=== PATIENT | female | born 1940 | race Caucasian/White ===

== ENCOUNTER → 2023-05-17 06:46 | Day surgery (SDC) | payer MEDICARE, SELFPAY | LOC: CATH 06:46 | PROVIDERS: ATTENDING PHYSICIAN Internal Medicine Cardiovascular Disease; FAMILY PHYSICIAN Internal Medicine; OTHER PHYSICIAN Nuclear Medicine Nuclear Cardiology | DX: I48.0 Paroxysmal atrial fibrillation (principal); Z53.09 Procedure and treatment not carried out because of other contraindication; R94.31 Abnormal electrocardiogram [ECG] [EKG]; I25.10 Atherosclerotic heart disease of native coronary artery without angina pectoris | CPT/HCPCS: 93005 ==

== ENCOUNTER → 2023-06-15 13:01 | Outpatient (REF) | payer MEDICARE, SELFPAY | LOC: RAD 13:01 | PROVIDERS: ATTENDING PHYSICIAN Surgery Vascular Surgery; FAMILY PHYSICIAN Internal Medicine | DX: I77.9 Disorder of arteries and arterioles, unspecified (principal); I73.9 Peripheral vascular disease, unspecified | CPT/HCPCS: 93880; 93922; 93925 ==

== ENCOUNTER → 2023-07-29 12:11 | Outpatient (REF) | payer MEDICARE, SELFPAY | LOC: CLAB 12:11 | PROVIDERS: ATTENDING PHYSICIAN Obstetrics & Gynecology | DX: N39.0 Urinary tract infection, site not specified (principal); L90.0 Lichen sclerosus et atrophicus | CPT/HCPCS: 87086; 87147; 87186 ==

== ENCOUNTER → 2023-09-09 10:21 | Outpatient (REF) | payer MEDICARE, SELFPAY | LOC: HWRAD 10:21 | PROVIDERS: ATTENDING PHYSICIAN Anesthesiology; FAMILY PHYSICIAN Internal Medicine | DX: M54.16 Radiculopathy, lumbar region (principal) | CPT/HCPCS: 72131 ==

== ENCOUNTER → 2023-09-20 15:46 | Outpatient (REF) | payer MEDICARE, SELFPAY | LOC: HWRAD 15:46 | PROVIDERS: ATTENDING PHYSICIAN Anesthesiology; FAMILY PHYSICIAN Internal Medicine | DX: M54.14 Radiculopathy, thoracic region (principal); M54.6 Pain in thoracic spine | CPT/HCPCS: 72128 ==

== ENCOUNTER → 2023-11-08 15:30 | Outpatient (REF) | payer MEDICARE, SELFPAY | LOC: PAVMRI 15:30 | PROVIDERS: ATTENDING PHYSICIAN Neurological Surgery; FAMILY PHYSICIAN Internal Medicine; OTHER PHYSICIAN Surgery Vascular Surgery | DX: S22.060A Wedge compression fracture of T7-T8 vertebra, initial encounter for closed fracture (principal) | CPT/HCPCS: 72146 ==

== ENCOUNTER → 2023-11-26 12:56 | Outpatient (REF) | payer MEDICARE, SELFPAY | LOC: RCS 12:56 | PROVIDERS: ATTENDING PHYSICIAN Nuclear Medicine Nuclear Cardiology; FAMILY PHYSICIAN Internal Medicine | DX: R06.09 Other forms of dyspnea (principal); I48.0 Paroxysmal atrial fibrillation | CPT/HCPCS: 93306 ==

== ENCOUNTER 2023-12-29 09:37 | Day surgery (SDC) | payer MEDICARE, SELFPAY ==
[2023-12-29] VITALS (17 sets, daily range): BP systolic 97–201; BP diastolic 61–126; BMI 22.0
[2023-12-29] MEDS: NSS 500 IV (10:35)
[2023-12-29 10:45] LABS: Hematocrit 41.1 % (37.0-47.0); Hemoglobin 13.9 g/dL (12.0-16.0); Mean Corp Hgb Conc. 33.8 g/dL (33.0-37.0); Mean Corpuscular Hgb 34.8 pg (27.0-31.0); Mean Corpuscular Volume 102.8 fL (81.0-99.0); Mean Platelet Volume 9.7 fL (7.4-10.4); Platelet Count 274 10^3/uL (130-400); Red Cell Dist. Width 12.4 % (11.5-14.5); White Blood Cell Count 12.2 10^3/uL (4.8-10.8)
[2023-12-29] MEDS: VANCOCIN 200 IV (11:02)
[2023-12-29 11:07] LABS: ALT (SGPT) 25 U/L (0-35); AST (SGOT) 41 U/L (14-36); Albumin 4.8 g/dl (3.5-5.0); Alkaline Phosphatase 77 U/L (38-126); Blood Urea Nitrogen 26 mg/dl (7-17); Calcium 9.9 mg/dl (8.4-10.2); Carbon Dioxide 21 mmol/L (22-30); Chloride 105 mmol/L (98-107); Estimated Creatinine Clearance 45 ml/min; Glucose 113 mg/dl (70-99); Potassium 4.8 mmol/L (3.5-5.1); Sodium 143 mmol/L (135-145); Total Bilirubin 0.8 mg/dl (0.2-1.3); Total Protein 8.3 g/dl (6.3-8.2); eGFR > 60.00
[2023-12-29] MEDS: AZACTAM 2000 MG IV (11:45)
--- NOTE | 2023-12-29 13:46 | ITS.CL.PACE ---
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
Pacemaker Implant
Procedure Report:
PACEMAKER IMPLANT REPORT
Primary Care Provider: Dr. Juany Thorne
Primary liquefier: Dr. Kalia Hansen
Date of Procedure: December 29, 2023
Procedure:
Implantation of dual-chamber permanent pacemaker utilizing the left bundle branch for conduction system pacing
Indication/Diagnosis:
Non-reversible symptomatic bradycardia due to sinus node dysfunction
After informed consent was obtained, 'time out' was called and confirmed, the patient was prepped and draped in a sterile fashion. Lidocaine with epi was used for local anesthesia. Central venous access was obtained via subclavian venipuncture. An
incision was made along the left chest and a pre-pectoral pocket was formed. Using a Seldinger technique and peel-away sheaths, the pacing leads were placed under fluoroscopic guidance.
Fluoroscopy was used to determine likely anatomic site for left bundle branch pacing. The Dragon Lawtronic C315 sheath was used to deliver the Medtronic 3830 Selectsecure pacing lead with the helix exposed just exposed from the sheath tip during continuous
monitoring when pacemapping the septum during gentle clockwise rotation to obtain a paced QRS morphology of a W pattern in lead V1. Once the suspected optimal site was identified, lead deployment was performed with several rapid rotations as paced
QRS morphology was intermittently monitored until a paced QRS complex in lead V1 demonstrated development of an R wave (QR).
Stable VEgm injury current is present throughout final lead position including at end of case, suggesting there was no perforation through the septum into the LV cavity.
Final unipolar pacing impedance is 1000 Ohms
Unipolar pacing threshold is stable at 1.5 V @ 0.4 ms.
Final conduction system paced QRS complex duration is 105 ms
LVAT is 95 ms and peak V5 -> peak V1 timing is 38 ms
Right atrial lead was placed at the RAA.
Once testing (see below) showed adequate and stable function, the leads were secured using the suture sleeves. The pocket was liberally irrigated with antibiotic solution. The leads were connected to the generator header and the leads and
generator were placed within the pocket. Fluoroscopy confirmed stable lead position. The pocket was closed in the typical fashion.
Fluoroscopy was used to guide lead placement.
IMPLANTS:
Medtronic [id number], Left Pectoral
RA: Medtronic 5076-45, RAA
RV: Medtronic 3830, Interventricular septum at LBB
DEVICE TESTING:
Sensing: RA 1.5 mV, RV 6 mV
Capture: RA 1.5 V@0.4ms, RV 1.5 V@0.4ms
Ohms: RA 600 , RV 900
FINAL PROGRAMMING
Shun Pacing: AAIR+ 60-130 ppm (MVP mode)
COMPLICATIONS:
None
CONCLUSIONS:
1: Successful implant of dual chamber permanent pacemaker utilizing Left Bundle Branch conduction system capture for pacing.
RECOMMENDATIONS:
Post-op care (tele, CXR, IV abx)
Reinitiate Toprol-XL 25 mg daily
Consideration for reinitiation of Eliquis tomorrow evening
In-Office wound check in 5-7 days
Copy to:
Dr. Juany Thorne
Dr. Kalia Hansen
[2023-12-29] MEDS: TYLENOL 650 MG PO ×2 (15:18→19:31)
--- NOTE | 2023-12-29 15:42 | CM ---
Chart reviewed. Patient is independent of ADLS, lives with her in a 3 STH, 0 ENMANUEL, ambulates with a rollator and a SPC. Plan is for the patient to return home. CM to follow
[2023-12-29] MEDS: PEPCID 20 MG PO (19:31)
[2023-12-29] MEDS: MILK OF MAGNESIA 30 ML PO (19:37)
[2023-12-29] MEDS: TOPROL XL 25 MG PO (20:17)
[2023-12-29] MEDS: CRESTOR 10 MG PO (22:13)
[2023-12-29] MEDS: PEPCID PO (22:13)
--- NOTE | 2023-12-29 23:12 | PTCARENOTE ---
Pt rec'd at change of shift oob in recliner chair with son at bedside. Medicated with Tylenol for c/o ache at pacer site and down left arm. Pacer site with pressure drsg intact and immobilizer. no active bleeding or hematoma present. A paced on
telemetry.
[2023-12-30] MEDS: TYLENOL 650 MG PO ×3 (02:11→17:08)
[2023-12-30 02:29] VITALS: BP 135/67
--- NOTE | 2023-12-30 02:44 | PTCARENOTE ---
Pt assisted oob to void in bathroom. Back to bed at present. medicated with Tylenol for c/o pain at pacer site. pacer site remains intact with no active bleeding or hematoma noted.
[2023-12-30 03:13] LABS: Hemoglobin 13.5 g/dL (12.0-16.0); Mean Corp Hgb Conc. 34.6 g/dL (33.0-37.0); Mean Corpuscular Hgb 35.4 pg (27.0-31.0); Mean Corpuscular Volume 102.4 fL (81.0-99.0); Mean Platelet Volume 9.8 fL (7.4-10.4); Platelet Count 222 10^3/uL (130-400); Red Blood Cell Count 3.81 10^6/uL (4.20-5.40); Red Cell Dist. Width 12.5 % (11.5-14.5); White Blood Cell Count 9.6 10^3/uL (4.8-10.8)
[2023-12-30 03:26] LABS: Blood Urea Nitrogen 19 mg/dl (7-17); Calcium 9.4 mg/dl (8.4-10.2); Carbon Dioxide 23 mmol/L (22-30); Chloride 104 mmol/L (98-107); Estimated Creatinine Clearance 52 ml/min; Glucose 96 mg/dl (70-99); Magnesium 2.5 mg/dl (1.6-2.3); Sodium 142 mmol/L (135-145); eGFR > 60.00
[2023-12-30] MEDS: SYNTHROID 112 MCG PO (04:22)
[2023-12-30] MEDS: LASIX 40 MG PO (04:23)
--- NOTE | 2023-12-30 05:21 | PTCARENOTE ---
At 0422 pt called nursing to room concerned that she did not take her Lasix yesterday ,requested todays dose be given at that time. Pt in no distress, lungs clear.
[2023-12-30 07:39] VITALS: BP 149/72
[2023-12-30] MEDS: KCL 20 MEQ PO (08:27)
[2023-12-30] MEDS: PLAVIX 75 MG PO (08:27)
[2023-12-30] MEDS: METAMUCIL, KONSYL 1 PACKET PO (08:27)
[2023-12-30] MEDS: TOPROL XL 25 MG PO (08:28)
--- NOTE | 2023-12-30 11:19 | CM ---
Chart reviewed. Patient is independent of ADLS, lives with her in a 3 STH, 0 NEMANUEL, ambulates with a rollator and spc. Patient is interested in VN. Referral sent to [facility]. Plan DC home with [facility] KEVIN
--- NOTE | 2023-12-30 11:42 | W.PN.CARDCBS ---
Addendum entered and electronically signed by Rj Daly MD 12/30/23 12:17:
patient seen and examined
s/p ppm
atrial pacing on tele
cxr without ptx
exam:
site cdi
Impression:
Symptomatic bradycardia
post DC PPM 12/29/23
PAF prior 2018
Tachy-trupti syndrome
CAD PCI LCx
CVA/TIA
PAD
Chronic HFpEF
PMR
HTN
HLD
Hypothyroidism
Severe MG 31mg by Echo 11/26/23
Plan:
post device site stable with scant drainage
CXR no PTX
tele Apaced
Resume OAC Eliquis tonight
New start to metoprolol xl 25mg daily
continue Plavix and statin for CAD
Activity restrictions reviewed
inc check apt 1 week
stable for d/c home today
Original Note:
Today's Communication / Plan
-
post DC PPM, stable for d/c home
Impression / Plan
-
PCP: Juany Thorne MD
CDY: Kalia Hansen DO
Impression:
Symptomatic bradycardia
post DC PPM 12/29/23
PAF prior 2018
Tachy-trupti syndrome
CAD PCI LCx
CVA/TIA
PAD
Chronic HFpEF
PMR
HTN
HLD
Hypothyroidism
Severe MG 31mg by Echo 11/26/23
Plan:
post device site stable with scant drainage
CXR no PTX
tele Apaced
Resume OAC Eliquis tonight
New start to metoprolol xl 25mg daily
continue Plavix and statin for CAD
Activity restrictions reviewed
inc check apt 1 week
stable for d/c home today
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
Subjective
Date of Service: December 30, 2023
mild inc pain relief with tylenol, no sob
Objective
Labs:
12/30/23 02:28
12/30/23 02:28
Labs
Hgb 13.5 g/dL (12.0-16.0) 12/30/23 02:
Hct 39.0 % (37.0-47.0) 12/30/23 02:
Plt Count 222 10^3/uL (130-400) 12/30/23 02:28
Sodium 142 mmol/L (135-145) 12/30/23:
Potassium 4.0 mmol/L (3.5-5.1) 12/30/23 02:28
BUN 19 mg/dl (7-17) H 12/30/23:
Creatinine 0.7 mg/dL (0.6-1.0) 12/30/23 02:28
Glucose 96 mg/dl (70-99) 12/30/23 02:28
Vital Signs and I&O:
Vital Signs
Temp Pulse Resp BP Pulse Ox
98.5 F 60 20 149/72 98
12/30/23 07:37 12/30/23 08:28 12/30/23 07:37 12/30/23 08:28 12/30/23 07:37
Vital Signs
Temp Pulse Resp BP Pulse Ox
98.5 F 60 20 149/72 98
12/30/23 07:37 12/30/23 08:28 12/30/23 07:37 12/30/23 08:28 12/30/23 07:37
Intake & Output
12/28/23 12/29/23 12/30/23 12/31/23
06:59 06:59 06:59 06:59
Intake Total 1240 / 1240
Output Total 400 / 400
Balance 840 / 840
Physical Exam
Physical Exam
NAD< AOX3
S1, S2, RRR, III/ ROSALINDA
CTAB, non labored no wheeze
SNTND bsx4
L CW dressing small marked areas of drainage, no HT, pressure dressing removed.
[2023-12-30 12:13] VITALS: BP 147/59
[2023-12-30] MEDS: ProAIR HFA INHALER 2 PUFF INH (13:13)
--- NOTE | 2023-12-30 13:14 | PTCARENOTE ---
Pt AOx3, complains of pain, given PRN medication as ordered. Pacemaker site CDI, immobilizer off. Pt independent in room. Call rose within reach.
--- NOTE | 2023-12-30 15:26 | W.DS.TRANS ---
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
-
Discharge Instructions:
Sleep Apnea Risk Low
Discharge Diagnosis/Procedures Pacemaker implant
Diet Low Cholesterol
Driving Restrictions No driving for 1 week
Bathing Restrictions OK to Shower
Instructions:
Stand-Alone Forms: DC Inst - Implanted Device
Changes to Home Medications: Yes
Discharge Medications:
DC Medications w/original date entered in [facility]
famotidine 20 mg tablet 20 mg PO BID Gastrointestinal issue 06/07/18
rosuvastatin 10 mg tablet 10 mg PO HS High cholesterol 06/07/18
albuterol sulfate 90 mcg/actuation aerosol inhaler 2 puff inhalation R Q6 PRN sob/wheezing 12/25/21
clopidogrel 75 mg tablet 75 mg PO DAILY Blood clot prevention/tx 12/25/21
levothyroxine 112 mcg tablet (Synthroid) 112 mcg PO DAILY AT 0700 Thyroid 12/25/21
furosemide 40 mg tablet 40 mg PO DAILY #30 tabs 12/29/21
apixaban 5 mg tablet 5 mg PO BID Blood clot prevention/tx 01/21/22
potassium chloride 20 mEq tablet,extended release(part/cryst) (Klor-Con M) 20 meq PO DAILY Electrolyte Repletion 01/21/22
L.acid,rhamn-Bif anim-B.subt 15 billion cell-bacterio 15 mg capsule,DR Braun) 1 cap PO DAILY 12/29/23
acetaminophen 650 mg tablet,extended release 650 mg PO Q8H PRN moderate pain 12/29/23
estradiol 0.01% (0.1 mg/gram) vaginal cream 1 appful vaginal ONCE PRN yeast infection 12/29/23
magnesium chloride 70 mg (magnesium chloride) tablet,delayed release 70 mg PO HS 12/29/23
qxlullgffluo-zdrdbwwo-omzsgv tablet (Multivitamin 50 Plus tablet) 1 tab PO HS 12/29/23
metoprolol succinate 25 mg tablet,extended release 24 hr 25 mg PO DAILY #30 tabs 12/30/23
Home Medication Changes
new to metoprolol
Pending Results: No
[2023-12-30 17:00] VITALS: BP 142/52
--- NOTE | 2023-12-30 17:15 | PTCARENOTE ---
Pt discharged to home with her daughter. Discharge instructions given and reviewed with pt and her daughter with good understanding.
== END 2023-12-30 17:34 | disposition home or self-care (01) ==
LOC: CATH 09:37
PROVIDERS: Nurse Practitioner; ATTENDING PHYSICIAN Internal Medicine Cardiovascular Disease; FAMILY PHYSICIAN Internal Medicine; OTHER PHYSICIAN Nuclear Medicine Nuclear Cardiology
DX: I49.5 Sick sinus syndrome (principal); I48.0 Paroxysmal atrial fibrillation; I25.10 Atherosclerotic heart disease of native coronary artery without angina pectoris; Z95.5 Presence of coronary angioplasty implant and graft; Z86.73 Personal history of transient ischemic attack (TIA), and cerebral infarction without residual deficits; I11.0 Hypertensive heart disease with heart failure; I50.32 Chronic diastolic (congestive) heart failure; E78.5 Hyperlipidemia, unspecified; E03.9 Hypothyroidism, unspecified; I35.0 Nonrheumatic aortic (valve) stenosis; Z79.02 Long term (current) use of antithrombotics/antiplatelets; Z79.01 Long term (current) use of anticoagulants
CPT/HCPCS: 33208; C1769; C1892; C1887; 71045; 80048; 80053; 83735; 85027; 93005; 94640; C1785; C1898

== ENCOUNTER 2024-01-29 12:38 | Inpatient (IN) | payer MEDICARE, SELFPAY ==
[2024-01-29] VITALS (10 sets, daily range): BP systolic 113–177; BP diastolic 60–87; BMI 23.6; BMI 22.9
--- NOTE | 2024-01-29 09:36 | ED.GENMED ---
History of Present Illness
General
Chief Complaint: Cold/Flu/URI Symptoms
Time Seen by Provider: 01/29/24 09:16
History of Present Illness
History of Present Illness:
83-year-old female with history of sick sinus syndrome/A-fib status post pacemaker placement on December 28 presents to the emergency department for evaluation of shortness of breath and generalized fatigue associated with a generally nonproductive
cough and nasal congestion for the past week. She reportedly was on vacation the week prior with several friends and family members one of them was sick with a respiratory illness. She was started on azithromycin yesterday by her primary care
physician and has only taken the first 500 mg dosage. She denies chest pain or orthopnea, does have profound dyspnea on exertion. No leg swelling. Has been compliant with her home anticoagulants but does admit that due to the fatigue over the
past week has been breaking her 25 mg metoprolol in half
Past History
Past History
ED Past Medical History: Arrthythmia (afib), Asthma, CHF, COPD, CVA (Right eye vision loss), HTN, Hypercholesterolemia and Psychiatric (Depression)
ED Past Surgical History: Cardiac (Right carotid stent, cardiac stents, ), Orthopedic (bilateral knee replacement) and Other
Social History
Tobacco: Former smoker
Alcohol: Daily (wine 1-2 glasses)
Drug: None
Personal:
Living: with family
Family History
Family History: Other (Sister with CHF)
Review of Systems
Review of Systems
Allergies reviewed?: Yes
All Other Systems: ROS reviewed and negative except as documented in HPI and ROS
Phy Exam
Physical Exam
Physical Exam:
GEN: Well appearing, NAD, WDWN
Eyes: PERRLA, EOMs intact, no scleral icterus
HENT: NCAT, oral mucosa moist, no JVD
Lungs: Tachypneic with accessory muscle usage, rhonchi and rales in the left base, otherwise lungs clear
Chest: Pacemaker generator in the left upper chest wall associated with minor hematoma, no wound dehiscence
Cardiac: Tachycardic and irregular, no murmurs
Neuro: AO x 3
MSK: No gross deformity or ecchymosis. No edema. No digital clubbing
Skin: No rashes, petechiae. Normal color, no pallor or jaundice.
Psych: Calm, cooperative, proper hygiene
Course
Orders/Labs/Results
Orders:
Orders
01/29/24 09:34
Electrocardiogram (*1) Urgent
Reason for Study: Shortness of Breath
EKG- Treatment ONCE
Nursing to Place Non Medication Order As Directed
Physician Order: interrogate medVerosee pacer
Above order entered?: Yes
CR Chest - 2 Views Urgent
Comment:
Reason For Exam: SOB
01/29/24 09:44
COVID-19 Antigen Urgent
Source: Nasal Swab
Complete Blood Count/With Diff Urgent
Comprehensive Metabolic Panel Urgent
Creatine Phosphokinase Urgent
Comment: ADD ON
Hepatitis C Antibody Urgent
Comment: ADD ON
Magnesium Urgent
Comment: ADD ON
NT-proBNP Urgent
Influenza A+B Rapid Molecular Urgent
BOAZ Source: Nasal Swab
Specimen Description:
01/29/24 09:59
CefTRIAXone [Rocephin] 1,000 mg IV NOW STA
01/29/24 10:13
Lactic Acid Q4H
Comment: CANCEL 2nd LACTIC ACID IF 1st LACTIC ACID IS LESS THAN 2
Blood Culture Q30M
BOAZ Source: Blood/Venous
Specimen Description:
Blood Culture Q30M
BOAZ Source: Blood/Venous
Specimen Description:
01/29/24 10:17
0.9% Sodium Chloride 1000 ml [Nss] 1,000 ml IV BOLUS
01/29/24 10:22
Azithromycin [Zithromax] 250 mg 0.9% Sodium Chloride 250 ml [Nss] 250 ml IV NOW
01/29/24 11:34
UA Reflex to Culture [Urinalysis Reflex To Culture] Stat
01/29/24 11:59
Admit/Transfer Patient As Directed
Co-Sign Provider:
Level of Care: Inpatient admission
Assign to:: Telemetry
Physician / Group: Hospitalist
Diagnosis: CAP, Afib with RVR
Reason for Telemetry: Arrhythmia
Date to Stop Telemetry: 02/01/24
Time to Stop Telemetry: 11:00
Reason for Hospitalization: CAP, Afib with RVR
Expected length of stay greater than two midnights?: Yes
ELOS- Estimated Length of Stay in days: 3
I certify the patient meets the requirements for IP care: Yes
PRN Pain Medication Management As Directed
May give lesser potent ordered pain med per pt: Yes
preference::
Protocol:: Medication orders for pain may be administered in a
manner that supports deferring to patient preference
when the pt is:
- Requesting an ordered lesser potent pain medication.
Least to most potent pain medications are defined
as: acetaminophen < NSAID < tramadol < opioids
(morphine, oxycodone, hydromorphone).
- Requesting a lesser dose of the same medication IF
ORDERED.
- Requesting a less intrusive route of administration
if both routes are prescribed by the provider (PO <
IV).
01/29/24 12:00
Metoprolol [Lopressor] 50 mg PO BID
01/29/24 12:01
Code Status As Directed
Resuscitation Status: Full Code
01/29/24 12:07
Add On- LAB Routine
Tests Added?: magnesium, CPK
01/29/24 12:08
Add On- LAB Routine
Tests Added?: HepC Ab
01/29/24 12:15
acetaminophen 650 mg PO Q8HPRN PRN
01/29/24 12:22
Acetaminophen [Tylenol] 650 mg .ROUTE .STK-MED ONE
01/29/24 12:23
Acetaminophen [Tylenol] 650 mg PO Q4HPRN PRN
02/01/24 11:00
DC Protocol for Telemetry ONCE
Abnormal Lab Results
01/29/24
09:44
WBC 21.1 H 10^3/uL
(4.8-10.8)
RBC 3.72 L 10^6/uL
(4.20-5.40)
MCV 102.7 H fL
(81.0-99.0)
MCH 36.3 H pg
(27.0-31.0)
Abs Immat Gran (auto) 0.1 H 10^3/uL
(0-0.05)
Absolute Neuts (auto) 17.9 H 10^3/uL
(1.4-6.5)
Absolute Lymphs (auto) 1.1 L 10^3/uL
(1.2-3.4)
Absolute Monos (auto) 1.8 H 10^3/uL
(0.1-0.6)
Immature Gran % 0.6 H %
(0-0.5)
Neutrophils % 85.1 H %
(42.2-75.2)
Lymphocytes % 5.2 L %
(20.5-51.1)
Potassium 3.4 L mmol/L
(3.5-5.1)
Carbon Dioxide 19 L mmol/L
(22-30)
Glucose 124 H mg/dl
(70-99)
AST 41 H U/L
(14-36)
01/29/24 09:44
01/29/24 09:44
Vital Signs
Initial and Last Documented VS:
Initial Vital Signs
Temp Pulse Resp BP Pulse Ox
98.4 F 125 26 177/83 94
01/29/24 09:09 01/29/24 09:09 01/29/24 09:09 01/29/24 09:09 01/29/24 09:09
Last Documented Vital Signs
Temp Pulse Resp BP Pulse Ox
98.4 F 100 26 115/85 96
01/29/24 09:09 01/29/24 13:00 01/29/24 13:00 01/29/24 13:00 01/29/24 13:00
MDM/Problems Addressed
MDM/Problems Addressed:
3-year-old female presenting with cough and weakness, found to be septic with severe cytosis and evidence of right upper lobe infiltrate on chest x-ray. She is also noted to be in rapid A-fib however was hemodynamically stable otherwise, this is
likely a response to her sepsis thus will not rate control her at this time, will offer IV antibiotics and gentle IV fluids. Will admit to the hospitalist service for further management
*Critical Care Note
Total Time (30-74mins, 75-104mins- exclusive of procedures): Not Applicable
ED Attending Note
-
Portions of this chart may have been created with voice recognition software.� Occasional wrong word or��sound alike� substitutions may have occurred due to the inherent limitations of voice recognition software.
Discharge Plan
Departure
Patient Disposition: Admit
Date of Disposition: 01/29/24
Time of Disposition: 10:20
Admit to: Med/Surg
Presentation/result/management discussed w/ accepting MD/DO: Hospitalist
Discharge Problem:
Right upper lobe pneumonia, Sepsis
Interventions
Interventions:
*Risk Screen - Suicide Last Done: 01/29/24 09:09
*General Assessment Last Done: 01/29/24 09:09
*Neglect/Abuse Screening Last Done: 01/29/24 09:09
ED- Fall Risk Assessment Last Done: 01/29/24 09:41
*ED COVID-19 Vaccine History Last Done: 01/29/24 09:41
ED- Pulmonary Assessment Last Done: 01/29/24 09:41
[2024-01-29 09:54] LABS: % Basophils 0.5 % (0-2); % Immature Granulocytes 0.6 % (0-0.5); % Lymphocytes 5.2 % (20.5-51.1); % Monocytes 8.6 % (1.7-9.3); % Neutrophils 85.1 % (42.2-75.2); Absolute Basophils 0.1 10^3/uL (0-0.2); Absolute Immature Granulocytes 0.1 10^3/uL (0-0.05); Absolute Lymphocytes 1.1 10^3/uL (1.2-3.4); Absolute Monocytes 1.8 10^3/uL (0.1-0.6); Absolute Neutrophils 17.9 10^3/uL (1.4-6.5); Hematocrit 38.2 % (37.0-47.0); Hemoglobin 13.5 g/dL (12.0-16.0); Mean Corp Hgb Conc. 35.3 g/dL (33.0-37.0); Mean Corpuscular Hgb 36.3 pg (27.0-31.0); Mean Corpuscular Volume 102.7 fL (81.0-99.0); Mean Platelet Volume 9.9 fL (7.4-10.4); Nucleated Red Blood Cells % 0 %; Platelet Count 237 10^3/uL (130-400); Red Blood Cell Count 3.72 10^6/uL (4.20-5.40); Red Cell Dist. Width 12.2 % (11.5-14.5); White Blood Cell Count 21.1 10^3/uL (4.8-10.8)
[2024-01-29 10:15] LABS: ALT (SGPT) 27 U/L (0-35); AST (SGOT) 41 U/L (14-36); Albumin 3.9 g/dl (3.5-5.0); Alkaline Phosphatase 97 U/L (38-126); Blood Urea Nitrogen 15 mg/dl (7-17); Calcium 9.1 mg/dl (8.4-10.2); Carbon Dioxide 19 mmol/L (22-30); Chloride 102 mmol/L (98-107); Estimated Creatinine Clearance 47 ml/min; Glucose 124 mg/dl (70-99); Potassium 3.4 mmol/L (3.5-5.1); Sodium 139 mmol/L (135-145); Total Protein 7.4 g/dl (6.3-8.2); eGFR > 60.00
[2024-01-29 10:16] LABS: NT-proBNP 7700 pg/ml
[2024-01-29 10:28] LABS: COVID-19 Antigen Negative (Negative)
[2024-01-29 10:32] LABS: Lactic Acid 1.7 mmol/L (0.7-2.0)
[2024-01-29] MEDS: ZITHROMAX 252.5 MG IV (10:39)
[2024-01-29] MEDS: NSS 1000 IV (10:40)
[2024-01-29] MEDS: ROCEPHIN 1000 MG IV (10:40)
--- NOTE | 2024-01-29 12:08 | HPS.HSE ---
Family Physician
-
Family Physician: Juany Thorne
Chief Complaint
-
SOB
History of Present Illness
83yo F with Afib on ELiquis, SSS s/p PPM 1 mo ago, moderate-severe , HFpEF, COPD, Hx of CVA with residual R eye vision loss, HDL, anxiety d/o came with 3 days of progressive weakness and cough, found leukocytosis on admission, also c/o elevated
temperature to 99.5 F at home. She was contacting with person sick with bronchitis a week ago.
Concern for CAP and also found Afib with RVR in ED
Medical History
Past Medical History
Past Medical History: Reports Other
Additional Past Medical History:
see HPI
Past Surgical History: Reports Orthopedic
Social History
Tobacco: Former Smoker
Alcohol: None
Drug: None
Family History
Family History: Not pertinent
Allergies / Home Medications
Allergies reflects when Allergies were last updated in [facility].
Home Medications with original date entered in [facility]
Allergy/Medication List:
Allergies
Allergy/AdvReac Type Severity Reaction Status Date / Time
ampicillin Allergy Swelling Verified 01/29/24 09:09
Penicillins Allergy Swelling Verified 01/29/24 09:09
Home Medications
famotidine 20 mg tablet 20 mg PO BID Gastrointestinal issue 06/07/18
rosuvastatin 10 mg tablet 20 mg PO HS High cholesterol 06/07/18
clopidogrel 75 mg tablet 75 mg PO DAILY Blood clot prevention/tx 12/25/21
levothyroxine 112 mcg tablet (Synthroid) 112 mcg PO DAILY AT 0700 Thyroid 12/25/21
furosemide 40 mg tablet 40 mg PO DAILY #30 tabs 12/29/21
apixaban 5 mg tablet 5 mg PO BID Blood clot prevention/tx 01/21/22
potassium chloride 20 mEq tablet,extended release(part/cryst) (Klor-Con M) 20 meq PO DAILY Electrolyte Repletion 01/21/22
L.acid,rhamn-Bif anim-B.subt 15 billion cell-bacterio 15 mg capsule, (Kenisha) 1 cap PO DAILY 12/29/23
acetaminophen 650 mg tablet,extended release 650 mg PO Q8HPRN PRN moderate pain 12/29/23
magnesium chloride 70 mg (magnesium chloride) tablet,delayed release 70 mg PO HS 12/29/23
mhjuvwtshqcg-ifxosfte-ufraiy tablet (Multivitamin 50 Plus tablet) 1 tab PO HS 12/29/23
metoprolol succinate 25 mg tablet,extended release 24 hr 12.5 mg PO BID 01/29/24
Review of Systems
-
History Source: Patient
A 12 point ROS was completed and negative except as noted: Yes
Constitutional: Reports Fatigue and Night Sweats
Respiratory: Reports Cough
Physical Exam
Vital Signs
Vital Signs
Temp Pulse Resp BP Pulse Ox
98.4 F 124 25 114/74 99
01/29/24 09:09 01/29/24 12:00 01/29/24 12:00 01/29/24 12:00 01/29/24 11:45
Physical Exam
General: Comfortable
HEENT: Moist mucous membranes
Respiratory: Clear; No Wheezes or Crackles
Cardiac: S1/S2 and Irregular Rhythm
GI: Soft, Non Tender and Non Distended
Genito-urinary: No costovertebral tender
Musculoskeletal: No Clubbing, No Cyanosis and No Edema
Neuro: Awake, Alert, Oriented and AO x 3
Psych: Calm
Laboratory Results
-
01/29/24 09:44
01/29/24 09:44
Laboratory Results
Lactic Acid Cancelled 01/29/24 14:15
Total Bilirubin 1.0 mg/dl (0.2-1.3) 01/29/24 09:44
AST 41 U/L (14-36) H 01/29/24 09:44
ALT 27 U/L (0-35) 01/29/24 09:44
Alkaline Phosphatase 97 U/L (38-126) 01/29/24 09:44
Impression/Plan
-
A/P:
#Acute hypoxic respiratory insufficiency 2/2 CAP vs bronchitis
#COPD, no wheezing on exam, however high concern for COPD component
Ceftriaxone/Doxy
COVID-19 and Influenza PCR neg
Legionella urinary Ag and S.pneumonia urinary Ag
Sputum Cx if possible
Bcx pending
Wean off O2
Bronchodilators, Mucinex
PT/OT
check UA
#Afib with RVR
#SSS s/p PPM
#Moderate-severe
#Chronic HFpEF
telemetry
Lopressor increased dose
Cardiology consult
COnt Eliquis
cont lasix
No clinical signs of fluid overload
#Mild AST elevation
check CPK
follow LFT
Check HepC
#Hypokalemia
replete and follow
Check Mg
#Hx of CVA
#GERD
#HLD
#Anxiety
#Hypothyroidism
Check TSH
cont home meds
DVT ppx Eliquis
Full code - confirmed with patient
I have spent at least 79min reviewing chart, test results, communication with consultants and direct patient care
[2024-01-29 12:23] LABS: Creatine Phosphokinase 105 U/L (30-135)
[2024-01-29] MEDS: TYLENOL 650 MG PO ×2 (12:24→20:54)
[2024-01-29] MEDS: LOPRESSOR 50 MG PO ×2 (12:25→19:35)
[2024-01-29] MEDS: VIBRAMYCIN 100 MG PO ×2 (14:29→19:33)
--- NOTE | 2024-01-29 15:08 | CON.CAR ---
Consultation
Consultation Request
Date/Time Consultation Requested: 01/29/2024 at noon
Date/Time Consultation Performed: 01/29/2024 at 1500
Requesting Provider: Dr. Nicolas
Performing Provider: Haroon Plaza
Reason for Consultation: Atrial fibrillation with rapid ventricular response
Medical History
-
Chief Complaint: Tachycardia, cough with wheezing
History of Present Illness:
Pleasant 83-year-old woman with paroxysmal atrial fibrillation and difficult to control ventricular response with episodes of bradycardia. Her fsr is Dr. Doherty. She has been managed with amiodarone which was discontinued in November for
episodes of bradycardia. She also has aortic stenosis and peripheral arterial disease. When last seen by Dr. Hansen in November, amiodarone was discontinued and a Medtronic dual-chamber pacemaker was implanted on December 28. Thereafter she did
well. She went to the [facility] with friends, did not have much alcohol, but developed bronchitis symptoms 5 or 6 days ago. Tachycardia occurred 3 days ago. She is coughing and wheezing with sputum production. She presented to the
emergency department today, is felt to possibly have a right upper lobe pneumonia and in addition is found to be in atrial fibrillation. She has not missed doses of Eliquis. Previously she complains of fatigue on metoprolol.
Past Medical History
Past Medical History: Arrhythmias (Paroxysmal atrial fibrillation, sick sinus syndrome with bradycardia, Medtronic dual-chamber pacemaker December 2023), CAD (Listed as diagnosis but no clinical events), Hypercholesterolemia, Hyperthyroidism and
Hypothyroidism
Social History
Personal:
Living: With Family
Employment: Retired
Family History
Family History: Reviewed & Not Pertinent
Allergies / Home Medications
Allergy/AdvReac Type Severity Reaction Status Date / Time
ampicillin Allergy Swelling Verified 01/29/24 09:09
Penicillins Allergy Swelling Verified 01/29/24 09:09
�Medication �Instructions �Recorded �Confirmed �Type
famotidine 20 mg tablet 20 mg PO BID Gastrointestinal issue 06/07/18 01/29/24 History
rosuvastatin 10 mg tablet 20 mg PO HS High cholesterol 06/07/18 01/29/24 History
clopidogrel 75 mg tablet 75 mg PO DAILY Blood clot 12/25/21 01/29/24 History
prevention/tx
levothyroxine 112 mcg tablet 112 mcg PO DAILY AT 0700 Thyroid 12/25/21 01/29/24 History
(Synthroid)
furosemide 40 mg tablet 40 mg PO DAILY #30 tabs 12/29/21 01/29/24 Rx
apixaban 5 mg tablet 5 mg PO BID Blood clot 01/21/22 01/29/24 History
prevention/tx
potassium chloride 20 mEq 20 meq PO DAILY Electrolyte 01/21/22 01/29/24 History
tablet,extended Repletion
release(part/cryst) (Klor-Con M)
L.acid,rhamn-Bif anim-B.subt 15 1 cap PO DAILY 12/29/23 01/29/24 History
billion cell-bacterio 15 mg
DR marilee (Kenisha)
acetaminophen 650 mg 650 mg PO Q8HPRN PRN moderate pain 12/29/23 01/29/24 History
tablet,extended release
magnesium chloride 70 mg 70 mg PO HS 12/29/23 01/29/24 History
(magnesium chloride)
tablet,delayed release
vrjtblczasps-wlmorwkl-uohkao 1 tab PO HS 12/29/23 01/29/24 History
tablet (Multivitamin 50 Plus
tablet)
metoprolol succinate 25 mg 12.5 mg PO BID 01/29/24 01/29/24 History
tablet,extended release 24 hr
Physical Exam
Vital Signs
Temp Pulse Resp BP Pulse Ox
36.6 C 58 20 158/81 98
01/29/24 13:55 01/29/24 13:55 01/29/24 13:55 01/29/24 13:55 01/29/24 14:48
Lab Results
01/29/24 09:44
01/29/24 09:44
Fne-W-Bhiekdjezhj Pept 7700 pg/ml 01/29/24 09:44
Physical Exam
General: Respiratory Distress (Mild, cough, wheezing)
HEENT: Normocephalic
Respiratory: Rhonchi
Cardiac: Irregular Rhythm, Murmur (Aortic stenosis and mitral regurgitation number), JVD (Okay) and Carotid Pulses (Diminished with bruits)
GI: Non Distended
Musculoskeletal: No Edema
Skin: Warm and Dry
Neuro: AO x 3
Psych: Calm
Impression / Plan
-
Impression:
Community-acquired pneumonia/bronchitis
Acute on chronic HFpEF
Recurrent paroxysmal atrial fibrillation after withdrawal of amiodarone
Medtronic dual-chamber pacemaker December 29, 2023
Moderate to severe aortic stenosis, dimensionless index 0.3, aortic valve area 0.7 cm2, mild aortic regurgitation
Moderate mitral regurgitation
CAD, presumably nonobstructive by sestamibi study 2015
Right carotid artery stent, greater than 70% stenosis left internal carotid artery suspected high-grade
Right iliac peripheral arterial stenosis
Glaucoma
History of stroke
Hypercholesterolemia
Hypertension
History of giant cell arteritis
Former smoker
Carotid ultrasound May 2023: Greater than 70% stenosis of the left, patent right carotid stent
Lower extremity arterial duplex January 2023: Right MICHELLE 0.57, right TBI 0.38, monophasic throughout, suspected inflow disease with dampened waveforms monophasic pedal flow, left MICHELLE within normal limits, 1.03, TBI 0.4, multiphasic flow through the
popliteal and multiphasic pedal waveforms
Echocardiogram November 26, 2023: Mild LVH, EF 55-60%, indeterminant diastolic function, normal RV, dense mitral annular calcification, moderate mitral regurgitation, aortic stenosis, visually appears at least moderate, peak and mean gradients are 31
and 13 mmHg, aortic valve area 0.7 [id number] mild aortic regurgitation. Dimensionless index is 0.3, normal atria, pulmonary artery systolic pressure 50-55 minutes of mercury. Peak and mean aortic valve gradients and Brianne were 67 and 50 mmHg with
a valve area of 0.6 cm2. Pulmonary artery pressure was normal in March
Lexiscan sestamibi stress test October 2015: Small fixed inferoseptal defect, EF 60%
Plan:
She presents with presumed right upper lobe pneumonia, possibly left upper lobe pneumonia and now has recurrent atrial fibrillation with rapid ventricular response roughly 1 month after pacemaker implantation and withdrawal of amiodarone.
She is anticoagulated, on Eliquis 2.5 mg twice daily.
Pacemaker function is nominal. A-fib started about 3 days ago.
We will continue metoprolol for now and restart amiodarone.
There may be a an element of acute on chronic HFpEF. proBNP was 7770. For now we will hold IV, continue oral furosemide 40 mg daily diuretics and reassess in the a.m.
.
She is on Plavix presumably for PAD, will continue for now.
Defer best treatment for pneumonia to hospitalist
Repeat EKG and check troponin
After discharge we may need to reassess for TAVR.
Data Reviewed
-
EKG: Tracing Personally Visualized and interpreted (Patient fibrillation, diffuse ST depression, ventricular response 133 bpm, LVH)
Radiology: Image Personally Visualized and interpreted (Chest x-ray with right upper lobe pneumonia, possible left upper lobe infiltrate, probable COPD pacemaker)
Medical Tests (Nuc Med, Echo etc): Report Reviewed by me
Labs: Labs Reviewed by me (White count 21.1, MCV 102.7, hemoglobin 13.5, potassium 3.4, CO2 19 with anion gap of 18, BUN/creatinine 15 and 0.7, lactic acid 1.7, proBNP 7700, had been 7.97 in 2021, troponin pending)
Old Records: Reviewed
[2024-01-29] MEDS: PACERONE 400 MG PO ×2 (16:07→20:49)
[2024-01-29 16:51] LABS: Troponin I 0.023 ng/ml
[2024-01-29] MEDS: MIRALAX 17 GRAMS PO (17:53)
[2024-01-29] MEDS: SENOKOT-S 1 TABLET PO (17:53)
[2024-01-29] MEDS: ALPHAGAN 0.2% EYE DROPS 1 DROP OPHTH (19:32)
[2024-01-29] MEDS: MUCINEX 600 MG PO (19:33)
[2024-01-29] MEDS: ELIQUIS 2.5 MG PO (19:33)
[2024-01-29] MEDS: COSOPT EYE DROPS 1 DROP OPHTH (19:33)
[2024-01-29] MEDS: PEPCID 20 MG PO (19:34)
[2024-01-29] MEDS: CRESTOR 20 MG PO (20:49)
[2024-01-29] MEDS: MAG-TAB SR 84 MG PO (20:49)
[2024-01-29] MEDS: XALATAN OPHTHALMIC SOLUTION 1 DROP RIGHT EYE (20:50)
[2024-01-29] MEDS: THERAGRAN 1 TABLET PO (20:50)
[2024-01-29 22:41] LABS: Urine Albumin 2+ (Neg - Trace); Urine Bilirubin Negative (Negative); Urine Character Clear (Clear); Urine Color Yellow; Urine Glucose Negative (Negative); Urine Ketone Trace (Negative); Urine Leukocyte 2+ (Negative); Urine Nitrite Positive (Negative); Urine Occult Blood 4+ (Negative); Urine Urobilinogen Negative (Neg - 1+)
[2024-01-29] MEDS: DUONEB 3 ML INH (22:45)
[2024-01-29 22:52] LABS: Urine Bacteria Many (Negative); Urine Red Blood Cell 16-20 /HPF (0-2)
[2024-01-29 23:18] LABS: Glucose - Point of Care 156 mg/dl (70-99)
--- NOTE | 2024-01-29 23:23 | W.PN.UPDATE ---
Update Note
Progress Note Update
RN notified HAND NAILER. Patient is in respiratory distress, RT was called for treatment. Patient was seen and evaluated. RN stated, noted increase of work accessory muscles RR 38-42, Pulse ox 80's RA, BP 168/64, HR 105-120's. Lungs rales, wheezes, sounds
congested, Oxygen level 94% on 5L. Looks clammy, mottled Upper extremity, no edema, voiding without difficulty per RN, Bladder scan 54CC, noted patient did not receive the Lasix PO today. Will give 20mg IV Lasix now.
Patient continuos to be in distress, patient reports she feels little better but feels exhausted coughing and spitting out sputum clear thick sputum RR 30's, Oxygen 90-94% 5L, will order chest Xray stat, Morphine 1mg IV, ABG stat. denies any chest
pain.
ABG wnl, chest Xray report pending
RN reported again patient continues to breath in the 30s and distressed. pox 95% on 6LC. Will order IV lasix 20mg x 1 again and KCL 40meq IV rider, K 3.4 AM, Discussed with RT, High flow will be a better option for patient at present. will Transfer
patient to IMU
[2024-01-29] MEDS: LASIX 20 MG IV (23:24)
[2024-01-29] MEDS: MORPHINE SULFATE 1 MG IV (23:39)
[2024-01-29 23:49] LABS: B.E. -7.6 mmol/L; HCO3 16.2 mmol/L (21-28); O2 Saturation % 96.8 % (94-98); PCO2 28 mmHg (32-35); PO2 71 mmHg (83-108); pH 7.37 (7.35-7.45)
[2024-01-29 23:53] LABS: O2 Therapy 94% 5L
--- NOTE | 2024-01-29 23:57 | PTCARENOTE ---
Patient c/o SOB. patient is diaphoretic, reparations 30-40 pox 88 2lNC. Crackles auscultated t/o lung waterman. patient placed on 5l NC pox 95%. patient continues to appear distressed diaphoretic with noted mottled extremities. CLINICAL INFORMATICS SPECIALIST Hephziba at bedside.
20mg lasix given iv as per order. CXR completed along with ABG. 1mg morphine given as per order for comfort.
HR 90-100 (afib) respirations continue in the 30's, Manual BP 162/80, POX 94-95%. CLINICAL INFORMATICS SPECIALIST Hephziba aware. No new orders given at this time. Patient continues to appear in distress with noted mottled extremities. 50cc output only. Will continue to
monitor for possible transfer to IMU.
[2024-01-30] VITALS (32 sets, daily range): BP systolic 69–159; BP diastolic 44–123; BMI 22.6
[2024-01-30] MEDS: LASIX 20 MG IV (00:26)
--- NOTE | 2024-01-30 01:08 | PTCARENOTE ---
Received pt to ICU room 3362 from [facility] as an IMU overflow. Pt is A/Ox4 pleasant and cooperative with care. Pt on 6LNC with SpO2 98%. AFib 120s-130s. Pt with diminished lung sounds and crackles throughout all lung waterman but pt endorses that her
dyspnea has improved. Purewick patent draining clear yellow urine. See nursing shift assessment flowsheet for further physical assessment details.
[2024-01-30] MEDS: KCL 270 MEQ IV (01:40)
--- NOTE | 2024-01-30 01:42 | TRANSFER ---
Pt transferred to room 3362. Report was given to Lety BALL and Handoff Monitored patient signed.
[2024-01-30 05:25] LABS: % Basophils 0.2 % (0-2); % Immature Granulocytes 0.7 % (0-0.5); % Lymphocytes 7.4 % (20.5-51.1); % Neutrophils 86.7 % (42.2-75.2); Absolute Basophils 0.1 10^3/uL (0-0.2); Absolute Immature Granulocytes 0.1 10^3/uL (0-0.05); Absolute Lymphocytes 1.6 10^3/uL (1.2-3.4); Absolute Neutrophils 18.1 10^3/uL (1.4-6.5); Mean Corp Hgb Conc. 35.1 g/dL (33.0-37.0); Mean Corpuscular Volume 102.5 fL (81.0-99.0); Nucleated Red Blood Cells % 0 %; Platelet Count 247 10^3/uL (130-400); Red Blood Cell Count 3.61 10^6/uL (4.20-5.40); Red Cell Dist. Width 12.2 % (11.5-14.5); White Blood Cell Count 20.9 10^3/uL (4.8-10.8)
[2024-01-30 06:05] LABS: Troponin I 0.027 ng/ml
[2024-01-30] MEDS: SYNTHROID 112 MCG PO (06:11)
[2024-01-30 06:17] LABS: TSH 1.14 uIU/ml (0.47-4.68)
[2024-01-30 07:05] LABS: ALT (SGPT) 41 U/L (0-35); AST (SGOT) 65 U/L (14-36); Albumin 3.3 g/dl (3.5-5.0); Alkaline Phosphatase 110 U/L (38-126); Blood Urea Nitrogen 17 mg/dl (7-17); Calcium 8.7 mg/dl (8.4-10.2); Carbon Dioxide 20 mmol/L (22-30); Chloride 102 mmol/L (98-107); Direct Bilirubin 0.3 mg/dl (0.0-0.4); Estimated Creatinine Clearance 55 ml/min; Glucose 129 mg/dl (70-99); Potassium 3.3 mmol/L (3.5-5.1); Sodium 137 mmol/L (135-145); Total Bilirubin 0.6 mg/dl (0.2-1.3); Total Protein 6.5 g/dl (6.3-8.2); eGFR > 60.00
--- NOTE | 2024-01-30 07:43 | PTCARENOTE ---
0700 patient in bed IMU level of care. Pt in bed; +SOB not appear in distress on 2L of o2; AAO x3 [place]; oral temp 98.8; BP via RT upper arm : 116/76 MAP 88; Afib 123; S1 and S2 on auscultation - Murmur - edema pedal pulses present ; 96%2L via nasal
canula. RR 23; Lungs diminished; Incontinent of urine Purwick in place and draining clear yellow urine. Abdomen soft nontender. call rose within reach
[2024-01-30] MEDS: COSOPT EYE DROPS 1 DROP OPHTH ×2 (07:48→19:52)
[2024-01-30] MEDS: ALPHAGAN 0.2% EYE DROPS 1 DROP OPHTH ×2 (07:48→19:51)
[2024-01-30] MEDS: ELIQUIS 2.5 MG PO ×2 (07:52→19:45)
[2024-01-30] MEDS: LOPRESSOR 50 MG PO (07:52)
[2024-01-30] MEDS: PEPCID 20 MG PO ×2 (07:53→19:45)
[2024-01-30] MEDS: KCL 20 MEQ PO (07:53)
[2024-01-30] MEDS: PLAVIX 75 MG PO (07:53)
[2024-01-30] MEDS: MUCINEX 600 MG PO ×2 (07:53→19:45)
[2024-01-30] MEDS: PACERONE 400 MG PO (07:53)
[2024-01-30] MEDS: VIBRAMYCIN 100 MG PO ×2 (07:53→19:45)
[2024-01-30] MEDS: LASIX 40 MG IV ×2 (07:54→17:22)
[2024-01-30] MEDS: KCL 40 MEQ PO ×2 (07:54→19:46)
[2024-01-30] MEDS: VISBIOME 1 CAP PO (07:54)
[2024-01-30] MEDS: DUONEB 3 ML INH ×2 (08:06→17:24)
--- NOTE | 2024-01-30 08:28 | W.PN.CARDCBS ---
Today's Communication / Plan
-
Still tachycardic, now in atrial flutter
Add IV diltiazem, decrease metoprolol and amiodarone
If needed, cardioversion in a.m.
Impression / Plan
-
Impression:
Community-acquired pneumonia/bronchitis
Acute on chronic HFpEF
Recurrent paroxysmal atrial fibrillation after withdrawal of amiodarone
Medtronic dual-chamber pacemaker December 29, 2023
Moderate to severe aortic stenosis, dimensionless index 0.3, aortic valve area 0.7 cm2, mild aortic regurgitation
Moderate mitral regurgitation
CAD, presumably nonobstructive by sestamibi study 2015
Right carotid artery stent, greater than 70% stenosis left internal carotid artery suspected high-grade
Right iliac peripheral arterial stenosis
Glaucoma
History of stroke
Hypercholesterolemia
Hypertension
History of giant cell arteritis
Former smoker
Carotid ultrasound May 2023: Greater than 70% stenosis of the left, patent right carotid stent
Lower extremity arterial duplex January 2023: Right MICHELLE 0.57, right TBI 0.38, monophasic throughout, suspected inflow disease with dampened waveforms monophasic pedal flow, left MICHELLE within normal limits, 1.03, TBI 0.4, multiphasic flow through the
popliteal and multiphasic pedal waveforms
Echocardiogram November 26, 2023: Mild LVH, EF 55-60%, indeterminant diastolic function, normal RV, dense mitral annular calcification, moderate mitral regurgitation, aortic stenosis, visually appears at least moderate, peak and mean gradients are 31
and 13 mmHg, aortic valve area 0.7 or7dsns mild aortic regurgitation. Dimensionless index is 0.3, normal atria, pulmonary artery systolic pressure 50-55 minutes of mercury. Peak and mean aortic valve gradients and Brianne were 67 and 50 mmHg with
a valve area of 0.6 cm2. Pulmonary artery pressure was normal in March
Lexiscan sestamibi stress test October 2015: Small fixed inferoseptal defect, EF 60%
Plan:
Given her tachycardia and progressive infiltrates on chest x-ray, she looks surprisingly well. However she is still dyspneic.
Probably with an element of acute HFpEF, likely related to heart rate.
She is currently in flutter 2-1. With carotid sinus massage, she slows and flutter waves are apparent.
Her QT interval is long but she is on amiodarone. Will cut amiodarone to 200 mg 3 times daily.
Blood pressure is acceptable and she is tachycardic. Will add IV diltiazem drip. Can continue metoprolol for now, will reduce dose.
Continue IV furosemide.
Troponin is detectable but did not pursue at the present time.
Keep n.p.o. in a.m. in the event that cardioversion is required.
Will need to consider for TAVR as outpatient.
Progress Note - Tow Operator
Subjective
Date of Service: January 30, 2024:
Moved to IMU for respiratory distress last night. Breathing is better today, she complains of some back pain from her compression fracture.
PMH/PSH/SH/FH: Reviewed
Current meds: Metoprolol tartrate 50 mg twice daily, clopidogrel 75 mg a day, Pepcid, levothyroxine, magnesium, potassium 20 mill equivalents daily, rosuvastatin 20 mg at bedtime, ceftriaxone, doxycycline, apixaban 2.5 twice daily, amiodarone 400 3
times daily, Cosopt, Alphagan, Xalatan, furosemide 40 mg IV twice daily, potassium 40 mg twice daily
116/76, pulse 99, respirate 18, afebrile, sats 98%, intake and output -1.4 L, somewhat tachypneic but surprisingly comfortable, head neck exam unremarkable, lungs are clear, tachycardic, systolic murmur, JVD hard to assess, abdomen benign not much
edema
Chest x-ray last night bilateral infiltrates, CHF versus pneumonia/ARDS
White count 20.9, hemoglobin 13, platelets 247, ABG last night 7.37, pCO2 28, pO2 71 on 5 L, potassium 3.3, CO2 20, anion gap 15, BUN and creatinine 17 and 0.6, proBNP was 7700, troponin is 0.027,Magnesium 2.0
ECG atrial fibrillation, diffuse nonspecific ST and T changes, prolonged QT
Telemetry: Atrial flutter 2-1.
Objective
Labs:
01/30/24 05:12
01/30/24 06:32
Labs
Hgb 13.0 g/dL (12.0-16.0) 01/30/24 05:12
Hct 37.0 % (37.0-47.0) 01/30/24 05:12
Plt Count 247 10^3/uL (130-400) 01/30/24 05:12
Sodium 137 mmol/L (135-145) 01/30/24 06:32
Potassium 3.3 mmol/L (3.5-5.1) L 01/30/24 06:32
BUN 17 mg/dl (7-17) 01/30/24 06:32
Creatinine 0.6 mg/dL (0.6-1.0) 01/30/24 06:32
Glucose 129 mg/dl (70-99) H 01/30/24 06:32
Troponins
01/29/24 01/30/24
16:17 05:12
Troponin I 0.023 0.027
Vital Signs and I&O:
Vital Signs
Temp Pulse Resp BP Pulse Ox
36.7 C 99 18 116/76 98
01/30/24 07:42 01/30/24 08:11 01/30/24 08:11 01/30/24 07:54 01/30/24 08:11
Vital Signs
Temp Pulse Resp BP Pulse Ox
36.7 C 99 18 116/76 98
01/30/24 07:42 01/30/24 08:11 01/30/24 08:11 01/30/24 07:54 01/30/24 08:11
Intake & Output
01/28/24 01/29/24 01/30/24 01/31/24
08:59 08:59 07:59 07:59
Intake Total
Output Total
Balance
Physical Exam
Physical Exam
See above
--- NOTE | 2024-01-30 08:28 | W.PN.HOSP.TC ---
Today's Communication/Plan
-
cont Abx
IV Lasix
wean off O2
rate control as per cardiology
Assessment / Plan
Assessment / Plan
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
A/P:
#Acute hypoxic respiratory insufficiency 2/2 CAP vs bronchitis
#COPD, no wheezing on exam, however high concern for COPD component
Ceftriaxone/Doxy
COVID-19 and Influenza PCR neg
Legionella urinary Ag and S.pneumonia urinary Ag neg
Sputum Cx if possible
Bcx NTD
Wean off O2
Bronchodilators, Mucinex
PT/OT
#Concern for UTI
cont ceftriaxone pending Ucx
US renal pending
#Afib with RVR
#SSS s/p PPM
#Moderate-severe
#acute on chronic HFpEF
#Chest pain at home
telemetry
Lopressor increased dose
COnt Eliquis
LAsix IV, daily weights, I&O, repeat Echo
serial troponin
cont Plavix, statin
Amiodarone as per card
#Mild transaminitis
CPK minimally elevated
follow LFT
HepC pending
#Hypokalemia
replete and follow
#Glaucoma
#Hx of CVA
#GERD
#HLD
#Anxiety
#Hypothyroidism
TSH WNL
cont home meds
DVT ppx Eliquis
Full code - confirmed with patient
I have spent at least 59min reviewing chart, test results, communication with consultants and direct patient care
Anticipated Discharge: > 48 hours
Subjective/Interval History
-
Date of Service: January 30, 2024
Objective Data
-
Labs:
Laboratory Results
01/29/24 01/30/24 01/30/24
23:44 05:12 05:13
WBC 20.9 H
Hgb 13.0
Hct 37.0
Plt Count 247
HCO3 16.2 L
Sodium Cancelled
Potassium Cancelled
Chloride Cancelled
Carbon Dioxide Cancelled
BUN Cancelled
Creatinine Cancelled
Glucose Cancelled
Calcium Cancelled
Total Bilirubin Cancelled
AST Cancelled
ALT Cancelled
Alkaline Phosphatase Cancelled
01/30/24
06:32
WBC
Hgb
Hct
Plt Count
HCO3
Sodium 137
Potassium 3.3 L
Chloride 102
Carbon Dioxide 20 L
BUN 17
Creatinine 0.6
Glucose 129 H
Calcium 8.7
Total Bilirubin 0.6
AST 65 H
ALT 41 H
Alkaline Phosphatase 110
Vital Signs:
Vital Signs
Temp Pulse Resp BP Pulse Ox
98.0 F 99 18 116/76 98
01/30/24 07:42 01/30/24 08:11 01/30/24 08:11 01/30/24 07:54 01/30/24 08:11
I&O
01/29/24 01/30/24 01/31/24
07:59 06:59 06:59
Intake Total
Output Total
Balance
Review of Systems
-
History Source: Patient
All other systems: Reviewed and negative
Respiratory: Reports Cough
Physical Exam
-
General: No Apparent Distress
HEENT: Normocephalic
Respiratory: Clear to Auscultation
Cardiac: Irregular Rhythm and Tachycardic
GI: Soft, Nontender and Nondistended
Musculoskeletal: No Clubbing, No Cyanosis and No Edema
Neuro: Awake, Alert, Oriented and AO x 3
Psych: Calm
[2024-01-30 10:05] LABS: Troponin I 0.021 ng/ml
[2024-01-30] MEDS: STERILE WATER FOR INJECTION 10 ML IV (10:14)
--- NOTE | 2024-01-30 10:17 | CM ---
CM following re: discharge planning.
Reviewed pt's chart, met with pt. pt's daughter Jihan and son in law at bedside.
Pt is an 83 year old female, admitted with primary dx of Acute hypoxic respiratory insufficiency.
Pt reports she lives with in a 2SH, 2 steps to enter and 3 FF of steps to get to her bedroom, has 4 supportive children. Per daughter, pt's is very weak and he cannot help the pt. Pt reports she uses a Rollator when goes outside and
inside the house she grabs the wall for safety. 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 Pt reports she has been feeling very weak in the past week or two and was not able to walk at all. Pt reports she is known to [facility]. No SNF
history. Pt stated if she needs to go to rehab she prefers [facility]. pt stated her was there and he had a very good experience.
PT and OT will evaluate the pt to determine a level of care at discharge.
PCP: Juany Thorne
Pharmacy: [facility]
D/C plan: [facility] if recommended by PT/OT.
CM will follow with discharge plan updates as hospitalization progresses
[2024-01-30] MEDS: ROCEPHIN 1000 MG IV (10:19)
[2024-01-30] MEDS: CARDIZEM 10 MG IV (11:05)
[2024-01-30] MEDS: CARDIZEM 125 IV ×2 (11:34→19:06)
--- NOTE | 2024-01-30 15:46 | PTCARENOTE ---
Patient in bed. Cardizem qtt per protocol and Cardizem bolus administered. Currently on telemetry Afib 75 while on Cardizem 15 ml. BP 131/101 map 109; Difficult to assess pOX due to poor circulation attempted to obtain POX via finger; toes and ear
b/l . POX spot check 95%/4L. pt no longer SOB Respiration even. Abdomen soft non-tender. Incontinent of urine Purwick in place and draining clear yellow urine. family at the bedside
[2024-01-30] MEDS: PACERONE 200 MG PO ×2 (17:23→22:09)
[2024-01-30] MEDS: TYLENOL 650 MG PO (17:27)
[2024-01-30] MEDS: LOPRESSOR 25 MG PO (19:45)
--- NOTE | 2024-01-30 20:00 | PTCARENOTE ---
Addendum entered by Anju Eng RN 01/31/24 00:43:
Pt afib w/ a pacing, not v paced
Original Note:
rec'd pt resting in bed, cooperative, follows commands, Afib/ v paced, cardizem gtt weaned off for HR- see flow sheet, weak distal pulses, no edema, skin warm/dry, O2 2 liters nc. sat 96, lungs decr in bases, + bowel sounds, no bm, abd soft, no n/v,
les diet, purewick in place- voiding noe urine
[2024-01-30] MEDS: MAG-TAB SR 84 MG PO (22:08)
[2024-01-30] MEDS: THERAGRAN 1 TABLET PO (22:08)
[2024-01-30] MEDS: CRESTOR 20 MG PO (22:08)
[2024-01-30] MEDS: XALATAN OPHTHALMIC SOLUTION 1 DROP RIGHT EYE (22:09)
--- NOTE | 2024-01-30 22:30 | PTCARENOTE ---
awoke, confused, reoriented
[2024-01-31] VITALS (30 sets, daily range): BP systolic 85–175; BP diastolic 38–147; PULSE 74–75; O2SAT 95; BMI 22.5
--- NOTE | 2024-01-31 | PTCARENOTE ---
sys reviewed, changes noted, NPO per order, CHG bath done, linens changed
[2024-01-31] MEDS: DUONEB 3 ML INH ×2 (02:34→15:32)
--- NOTE | 2024-01-31 02:35 | PTCARENOTE ---
c/o sudden sob, exp wheezing throughout, crackles 1/4 up, difficult to get sat; bp elevated, resp rx given, P Salty HUMAN RESOURCES BENEFITS MANAGER notified
[2024-01-31] MEDS: LASIX 40 MG IV ×2 (02:48→09:10)
--- NOTE | 2024-01-31 02:48 | PTCARENOTE ---
Addendum entered by Anju Eng RN 01/31/24 03:11:
2 incr to 4 liters nc
Original Note:
lasix 40mg iv given as ordered
--- NOTE | 2024-01-31 03:46 | PTCARENOTE ---
sleeping, resp nonlabored
[2024-01-31 04:16] LABS: % Basophils 0.4 % (0-2); % Eosinophils 0.2 % (0-6); % Immature Granulocytes 0.8 % (0-0.5); % Lymphocytes 12.5 % (20.5-51.1); % Monocytes 8.6 % (1.7-9.3); % Neutrophils 77.5 % (42.2-75.2); Absolute Basophils 0.1 10^3/uL (0-0.2); Absolute Immature Granulocytes 0.2 10^3/uL (0-0.05); Absolute Lymphocytes 2.5 10^3/uL (1.2-3.4); Absolute Monocytes 1.7 10^3/uL (0.1-0.6); Absolute Neutrophils 15.5 10^3/uL (1.4-6.5); Hematocrit 39.9 % (37.0-47.0); Hemoglobin 14.1 g/dL (12.0-16.0); Mean Corp Hgb Conc. 35.3 g/dL (33.0-37.0); Mean Corpuscular Hgb 35.1 pg (27.0-31.0); Mean Corpuscular Volume 99.3 fL (81.0-99.0); Mean Platelet Volume 10.6 fL (7.4-10.4); Nucleated Red Blood Cells % 0 %; Platelet Count 271 10^3/uL (130-400); Red Blood Cell Count 4.02 10^6/uL (4.20-5.40); Red Cell Dist. Width 12.6 % (11.5-14.5)
[2024-01-31 04:25] LABS: ALT (SGPT) 59 U/L (0-35); AST (SGOT) 96 U/L (14-36); Albumin 3.8 g/dl (3.5-5.0); Alkaline Phosphatase 144 U/L (38-126); Blood Urea Nitrogen 26 mg/dl (7-17); Calcium 9.6 mg/dl (8.4-10.2); Carbon Dioxide 20 mmol/L (22-30); Chloride 102 mmol/L (98-107); Estimated Creatinine Clearance 37 ml/min; Glucose 159 mg/dl (70-99); Potassium 4.7 mmol/L (3.5-5.1); Sodium 140 mmol/L (135-145); Total Bilirubin 0.6 mg/dl (0.2-1.3); Total Protein 7.4 g/dl (6.3-8.2); eGFR > 60.00
[2024-01-31] MEDS: SYNTHROID 112 MCG PO (05:21)
--- NOTE | 2024-01-31 08:00 | PTCARENOTE ---
Received patient from department assistant. patient is awake, alert, confused. Does not remember how she got to this room, but is aware that she is at [facility]. she is on 4L nasal cannula with a strong moist cough, non productive. Patient is
in a sinus rhythm. was scheduled for cardioversion this morning. Obtained EKG. Reviewed with cardiology, cardioversion cancelled. Patient is written for cholesterol lowering diet. Purewick in place draining yellow urine. due to receive lasix
this morning. will review orders. patient IMU status.
--- NOTE | 2024-01-31 08:34 | W.PN.CARDCBS ---
Today's Communication / Plan
-
She converted to sinus and can resume her diet.
She is back on amiodarone which has been reduced to 200 mg TID. Cont to monitor her QTc.
Will reduce Amiodarone further to 200 mg BID.
She may ultimately be evaluated for repeat PVI as outpt.
She had PVI [place] [address] Skyler Bernabe.
Stop IV Cardizem as she is now in sinus.
Continue beta heri
Cont IV lasix. AFib/flutter with RVR may have contributed to her HF.
Reduce lasix to 40 mg IV daily.
Check limited echo to reeval EF.
Cont medical therapy for nonMI troponin.
Following EP eval as outpt and pending her clinical status while maintaining sinus rhythm, may need to consider outpt eval of her .
Impression / Plan
-
.
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
Impression:
Community-acquired pneumonia/bronchitis
Acute on chronic HFpEF
Recurrent paroxysmal atrial fibrillation after withdrawal of amiodarone
Medtronic dual-chamber pacemaker December 29, 2023
Moderate to severe aortic stenosis, dimensionless index 0.3, aortic valve area 0.7 cm2, mild aortic regurgitation
Moderate mitral regurgitation
CAD, presumably nonobstructive by sestamibi study 2015
Right carotid artery stent, greater than 70% stenosis left internal carotid artery suspected high-grade
Right iliac peripheral arterial stenosis
Glaucoma
History of stroke
Hypercholesterolemia
Hypertension
History of giant cell arteritis
Former smoker
Carotid ultrasound May 2023: Greater than 70% stenosis of the left, patent right carotid stent
Lower extremity arterial duplex January 2023: Right MICHELLE 0.57, right TBI 0.38, monophasic throughout, suspected inflow disease with dampened waveforms monophasic pedal flow, left MICHELLE within normal limits, 1.03, TBI 0.4, multiphasic flow through the
popliteal and multiphasic pedal waveforms
Echocardiogram November 26, 2023: Mild LVH, EF 55-60%, indeterminant diastolic function, normal RV, dense mitral annular calcification, moderate mitral regurgitation, aortic stenosis, visually appears at least moderate, peak and mean gradients are 31
and 13 mmHg, aortic valve area 0.7 [id number] mild aortic regurgitation. Dimensionless index is 0.3, normal atria, pulmonary artery systolic pressure 50-55 minutes of mercury. Peak and mean aortic valve gradients and Brianne were 67 and 50 mmHg with
a valve area of 0.6 cm2. Pulmonary artery pressure was normal in March
Lexiscan sestamibi stress test October 2015: Small fixed inferoseptal defect, EF 60%
Plan:
She converted to sinus and can resume her diet.
She is back on amiodarone which has been reduced to 200 mg TID. Cont to monitor her QTc.
Will reduce Amiodarone further to 200 mg BID.
She may ultimately be evaluated for repeat PVI as outpt.
She had PVI in [address] Skyler Bernabe.
Stop IV Cardizem as she is now in sinus.
Continue beta heri
Cont IV lasix. AFib/flutter with RVR may have contributed to her HF.
Reduce lasix to 40 mg IV daily.
Check limited echo to reeval EF.
Cont medical therapy for nonMI troponin.
Following EP eval as outpt and pending her clinical status while maintaining sinus rhythm, may need to consider outpt eval of her .
Discussed with her daughter and with nursing.
Progress Note - [employer]
Subjective
Date of Service: January 31, 2024
Pt seen and examined. No chest pain. Breathing better.
Objective
Labs:
01/31/24 03:09
01/31/24 03:09
Labs
Hgb 14.1 g/dL (12.0-16.0) 01/31/24 03:09
Hct 39.9 % (37.0-47.0) 01/31/24 03:09
Plt Count 271 10^3/uL (130-400) 01/31/24 03:09
Sodium 140 mmol/L (135-145) 01/31/24 03:09
Potassium 4.7 mmol/L (3.5-5.1) D 01/31/24 03:09
BUN 26 mg/dl (7-17) H 01/31/24 03:09
Creatinine 0.9 mg/dL (0.6-1.0) 01/31/24 03:09
Glucose 159 mg/dl (70-99) H 01/31/24 03:09
Troponins
01/29/24 01/30/24 01/30/24
16:17 05:12 09:32
Troponin I 0.023 0.027 0.021
01/30/24
16:30
Troponin I Cancelled
Vital Signs and I&O:
Vital Signs
Temp Pulse Resp BP Pulse Ox
98.1 F 72 20 109/57 97
01/31/24 07:47 01/31/24 06:00 01/31/24 06:00 01/31/24 06:00 01/31/24 05:00
Vital Signs
Temp Pulse Resp BP Pulse Ox
98.1 F 72 20 109/57 97
01/31/24 07:47 01/31/24 06:00 01/31/24 06:00 01/31/24 06:00 01/31/24 05:00
Intake & Output
01/29/24 01/30/24 01/31/24 02/01/24
07:59 06:59 06:59 06:59
Intake Total 1305 / 1305
Output Total 2700 / 2700
Balance -1395 / -1395
Physical Exam
Physical Exam
General: No acute distress, AAOX3
Neck: Negative JVD
Heart: Regular, Negative S3 positive S1/S2, Negative S4, ROSALINDA grade II/
Lungs:Negative wheezes/rales. Coarse breath sounds b/l.
Abd: Positive BS, NT/ND, neg rebound/rigidity/guarding
Ext: Negative cyanosis/clubbing/edema
Neuro: nonfocal
--- NOTE | 2024-01-31 08:47 | W.PN.HOSP.TC ---
Addendum entered and electronically signed by Fadia Osborn MD 01/31/24 17:23:
83-year-old female admitted with 3 days of progressive weakness and cough
CVS: S1-S2 normal, sm at apex
Chest: CTA
Abdomen: Soft, NT / Bowel sounds present
Extremities: No edema
# Acute hypoxic respiratory insufficiency secondary to community-acquired pneumonia and bronchitis
Continue ceftriaxone doxycycline
COVID-19 influenza PCR negative
Legionella urinary and strep pneumonia urinary antigen negative
Sputum culture if possible
Blood culture negative
Wean oxygen as tolerated
Continue mucolytic's and bronchodilators
# Atrial fibrillation with RVR
History of pacemaker for sick sinus syndrome
Patient converted to sinus rhythm
Lopressor to be continued along with Eliquis, amiodarone 200 mg twice daily
Patient to be evaluated for PVI as outpatient.� She had a PVI in [address] Bernabe
# Acute on chronic heart failure with preserved ejection fraction-Continue Lasix IV, daily weights with intake output charting.Check echo
# Moderate to severe arctic stenosis, Moderate MR
# CAD-? Stent 2018
# Mild transaminitis- Chronic� since 2015 . Hep C AB pending. Discussed with daughters re OP GI Follow up need.
# Hypokalemia-replace and follow
# Hyperlipidemia-continue rosuvastatin
# Hypothyroidism-continue Synthroid 100 mcg
# PAD-right iliac, right carotid artery stent 2019, greater than 70% stenosis left ICA-Continue Plavix and Statin
# History of Giant Cell Arteritis
# Glaucoma-continue brimonidine, dorzolamide-timolol,Vyzulta
# History of CVA
# GERD
#Ex Smoker
D/W Daughters at bed side
Late documentation.
Original Note:
Today's Communication/Plan
-
Continue Abx
Reduce Amiodarone
Monitor QTC
Cardizem discontinued
Assessment / Plan
Assessment / Plan
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
Assessment/plan:
#Acute hypoxic respiratory insufficiency 2/2 CAP vs bronchitis.
#COPD, no wheezing on exam, however high concern for COPD component.
-Marked leukocytosis.
-Continue Ceftriaxone/Doxy for suspected PNA.
-COVID-19 and Influenza PCR neg, Legionella urinary Ag and S.pneumonia urinary Ag neg
-Bcx NTD
-Sup O2 weaned to 3 L, continue to wean as tolerated.
-Bronchodilators, Mucinex
-PT/OT
#Concern for UTI
-Cont ceftriaxone pending Ucx
-No hydronephrosis on renal US.
#Afib/flutter with RVR
-Converted to sinus rhythm with amiodarone TID, further reduced to 200 mg BID per cardiology.
-IV Cardizem discontinued
-Monitor QTc.
-PVI [place] [address] Bernabe, patient will be reevaluated for another PVI as outpatient.
-Continue Eliquis.
-Monitor on tele.
-Cardiology appreciated.
#Acute on chronic HFpEF
-Continue IV Lasix, reduced to 40 mg IV daily.
-Continue Lopressor.
-Follow I's and O's, daily weights.
-Repeat echo to reassess EF.
Non-W[place] high troponin.
-Peaked at 0.027, Most likely RV strain.
#Mod-Sever
-S/p PPM
#Mild transaminitis
-Chronic, per medical hx review.
-Pt's daughter reports family hx of FLD.
-T. bili WNL.
-HepC serology pending.
-Follow LFT.
#Constipation
-Bowel regimen with milk of magnesia.
#Hypokalemia
replete and follow
#Glaucoma
#Hx of CVA
#GERD
#HLD
#Anxiety
#Hypothyroidism
TSH WNL
cont home meds
DVT ppx-Eliquis
Code status-Full code - confirmed with patient
Anticipated Discharge: > 48 hours
Subjective/Interval History
-
Date of Service: January 31, 2024
Patient seen and examined with daughters by bedside. Her oxygen requirement has been weaned from 4 L to 3 L O2 NC And she is saturating at 95-97%. She reports that she does not use oxygen at home. Reports nonproductive cough unchanged from
admission. She however denies chest pain, palpitations, chills, dizziness, abdominal pain, nausea/vomiting.
Objective Data
-
Labs:
Laboratory Results
01/31/24
03:09
WBC 20.0 H
Hgb 14.1
Hct 39.9
Plt Count 271
Sodium 140
Potassium 4.7 D
Chloride 102
Carbon Dioxide 20 L
BUN 26 H
Creatinine 0.9
Glucose 159 H
Calcium 9.6
Total Bilirubin 0.6
AST 96 H
ALT 59 H
Alkaline Phosphatase 144 H
Vital Signs:
Vital Signs
Temp Pulse Resp BP Pulse Ox
98.1 F 72 20 109/57 97
01/31/24 07:47 01/31/24 06:00 01/31/24 06:00 01/31/24 06:00 01/31/24 05:00
I&O
01/30/24 01/31/24 02/01/24
06:59 06:59 06:59
Intake Total 1305 / 1305
Output Total 2700 / 2700
Balance -1395 / -1395
Review of Systems
-
History Source: Patient
All other systems: Reviewed and negative
Respiratory: Reports Cough
Cardiac: Reports No Symptoms
Physical Exam
-
General: No Apparent Distress
HEENT: Normocephalic
Respiratory: Other (Coarse breath sounds b/l); Negative Wheezes or Rales
Cardiac: S1/S2, Irregular Rhythm and Tachycardic
GI: Soft, Nontender and Nondistended
Musculoskeletal: No Clubbing, No Cyanosis and No Edema
Skin: Warm
Neuro: Awake, Alert, Oriented and AO x 3
Psych: Calm
Data Reviewed
-
Ultrasound: Image personally visualized and interpreted, Report Reviewed by me and Discussed with Physician
Old Records: Reviewed
[2024-01-31] MEDS: MUCINEX 600 MG PO ×2 (09:03→19:40)
[2024-01-31] MEDS: ELIQUIS 2.5 MG PO ×2 (09:04→19:40)
[2024-01-31] MEDS: PLAVIX 75 MG PO (09:04)
[2024-01-31] MEDS: VIBRAMYCIN 100 MG PO ×2 (09:04→19:40)
[2024-01-31] MEDS: PEPCID 20 MG PO (09:04)
[2024-01-31] MEDS: COSOPT EYE DROPS 1 DROP OPHTH ×2 (09:05→19:41)
[2024-01-31] MEDS: VISBIOME 1 CAP PO (09:05)
[2024-01-31] MEDS: ALPHAGAN 0.2% EYE DROPS 1 DROP OPHTH ×2 (09:05→19:43)
[2024-01-31] MEDS: LOPRESSOR 25 MG PO ×2 (09:06→19:41)
[2024-01-31] MEDS: KCL PO ×2 (09:09→09:10)
[2024-01-31] MEDS: PACERONE 200 MG PO ×2 (09:09→19:40)
--- NOTE | 2024-01-31 09:16 | CM ---
NPO.
Weaning oxygen.
Continues with IV Lasix.
Requested PT OT order form MD when appropriate.
PLAN Will need PT OT for dc planning Awaiting evals.
[2024-01-31] MEDS: STERILE WATER FOR INJECTION 10 ML IV (09:31)
[2024-01-31] MEDS: ROCEPHIN 1000 MG IV (09:31)
--- NOTE | 2024-01-31 13:00 | PTCARENOTE ---
Patient was OOB assist x1.
--- NOTE | 2024-01-31 16:55 | PTCARENOTE ---
Echo completed at bedside. patient assessment unchanged.
[2024-01-31 19:05] LABS: Hepatitis C Antibody Negative (Negative)
--- NOTE | 2024-01-31 20:00 | PTCARENOTE ---
Rec'd pt resting in bed, follows commands, forgetful, RAY, SR, bp stable, weak distal pulses, no edema, skin warm/dry, O2 3 liters nc, lungs decr in bases & fine bibas crackles, sat 95, moist NPC, + bowel sounds, no bm, abd soft, no n/v, les diet,
purewick in place-, voiding yellow urine
[2024-01-31] MEDS: MAG-TAB SR 84 MG PO (22:32)
[2024-01-31] MEDS: CRESTOR 20 MG PO (22:32)
[2024-01-31] MEDS: THERAGRAN 1 TABLET PO (22:32)
[2024-01-31] MEDS: XALATAN OPHTHALMIC SOLUTION 1 DROP RIGHT EYE (22:33)
--- NOTE | 2024-01-31 22:36 | PTCARENOTE ---
confused to place/ time; attempting to climb oob, bed alarm on; reoriented
[2024-02-01] VITALS (16 sets, daily range): BP systolic 100–161; BP diastolic 56–87; BMI 22.4; BMI 21.4
--- NOTE | 2024-02-01 | PTCARENOTE ---
sys reviewed, changes noted, CHG bath done, linens changed
[2024-02-01] MEDS: SYNTHROID 112 MCG PO (04:06)
--- NOTE | 2024-02-01 04:09 | PTCARENOTE ---
sys reviewed, changes noted
[2024-02-01 04:42] LABS: ALT (SGPT) 80 U/L (0-35); AST (SGOT) 117 U/L (14-36); Albumin 3.1 g/dl (3.5-5.0); Alkaline Phosphatase 117 U/L (38-126); Blood Urea Nitrogen 23 mg/dl (7-17); Calcium 8.9 mg/dl (8.4-10.2); Carbon Dioxide 26 mmol/L (22-30); Chloride 98 mmol/L (98-107); Glucose 116 mg/dl (70-99); Potassium 3.3 mmol/L (3.5-5.1); Sodium 137 mmol/L (135-145); Total Bilirubin 0.5 mg/dl (0.2-1.3)
[2024-02-01 04:50] LABS: Estimated Creatinine Clearance 47 ml/min; Total Protein 6.5 g/dl (6.3-8.2); eGFR > 60.00
[2024-02-01 05:20] LABS: Vitamin B12 > 1000 pg/ml (239-931)
[2024-02-01] MEDS: KCL 40 MEQ PO (05:37)
--- NOTE | 2024-02-01 05:37 | PTCARENOTE ---
Addendum entered by Anju Eng RN 02/01/24 05:42:
tylenol 650mg po given for headache
Original Note:
40 meq kcl po given per order
[2024-02-01] MEDS: TYLENOL 650 MG PO ×2 (05:41→18:46)
--- NOTE | 2024-02-01 07:32 | W.PN.HOSP.TC ---
Addendum entered and electronically signed by Fadia Osborn MD 02/01/24 13:14:
83-year-old female admitted with 3 days of progressive weakness and cough
CVS: S1-S2 normal, sm at apex
Chest: CTA
Abdomen: Soft, NT / Bowel sounds present
Extremities: No edema
# Acute hypoxic respiratory insufficiency secondary to community-acquired pneumonia and bronchitis
Continue ceftriaxone doxycycline
COVID-19 influenza PCR negative
Legionella urinary and strep pneumonia urinary antigen negative
Sputum culture if possible
Blood culture negative
Wean oxygen as tolerated
Continue mucolytic's and bronchodilators
WBCs higher today
But pt looks better
#Constipation resolving.
# Atrial fibrillation with RVR
History of pacemaker for sick sinus syndrome
Patient converted to sinus rhythm
Lopressor to be continued along with Eliquis, amiodarone 200 mg twice daily
Patient to be evaluated for PVI as outpatient.� She had a PVI in [address] Bernabe
# Acute on chronic heart failure with preserved ejection fraction-Continue Lasix IV, daily weights with intake output charting.Check echo
# Moderate to severe arctic stenosis, Moderate MR
# CAD-? Stent 2018
# Mild transaminitis- Chronic� since 2015 . Hep C AB pending. Discussed with daughters re OP GI Follow up need.check USS abdomen
# Hypokalemia-replace and follow
# Hyperlipidemia-continue rosuvastatin
# Hypothyroidism-continue Synthroid 100 mcg
# PAD-right iliac, right carotid artery stent 2019, greater than 70% stenosis left ICA-Continue Plavix and Statin
# History of Giant Cell Arteritis
# Glaucoma-continue brimonidine, dorzolamide-timolol,Vyzulta
# History of CVA
# GERD
#Ex Smoker
Original Note:
Today's Communication/Plan
-
Now on room air
Continue antibiotics
Continue Lasix
Daily weights, I's and O's
Monitor and replete electrolytes
Continue amiodarone
Monitor QTc
Mucolytics and bronchodilators
Downgrade to telemetry.
Assessment / Plan
Assessment / Plan
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
Assessment/plan:
#Acute hypoxic respiratory insufficiency 2/2 CAP vs bronchitis.
-Worsened leukocytosis, but remains afebrile.
-Now on room air saturating at 92 to 95%.
-Weight down, follow daily weights, I's and O's.
-Continue Ceftriaxone/Doxy
-Blood cx NTD
-Continue bronchodilators, Mucinex
-PT/OT
# UTI
-Urine culture negative.
-Patient on ceftriaxone for pneumonia.
#Afib/flutter with RVR
-Currently on amiodarone 200 mg twice daily.
-Continue Eliquis on Lopressor.
-PVI [place] [address] Bernabe, patient will be reevaluated for another PVI as outpatient.
-Monitor on telemetry, follow QTc.
-Cardiology on board.
#Acute on chronic HFpEF
#Moderate to severe aortic stenosis with moderate MR.
-Echo 01/30 unchanged (EF 55 to 60%, low-flow AAS, mild AR, mild to moderate TR)
-Continue IV Lasix.
-Follow I's and O's, daily weights.
-Repeat echo to reassess EF.
#Hypokalemia
-K 3.3 today
-Patient on 20 mg home dose, received extra 40 mg this a.m.
-Monitor and replete.
Non-MD high troponin.
-Peaked at 0.027, Most likely RV strain.
#Mod-Sever
-S/p PPM
#Mild transaminitis
-Hepatocellular injury.
-Consider steatotic liver disease vs NAFLD
-Pt's daughter reports family hx of FLD.
-T. bili WNL.
-HepC serology negative.
-Follow LFT.
-GI consult if continues to worsen.
#Constipation
-Bowel regimen with milk of magnesia.
#Hypokalemia
replete and follow
#Glaucoma
#Hx of CVA
#GERD
#HLD
#Anxiety
#Hypothyroidism
TSH WNL
cont home meds
DVT ppx-Eliquis
Code status-Full code - confirmed with patient
Anticipated Discharge: > 48 hours
Subjective/Interval History
-
Date of Service: February 01, 2024
Patient was seen and examined dependently by me sitting comfortably on the chair, breathing on room air in no cardiopulmonary distress. She reports that her SOB is better except that she still feels winded when she moves around. She denies chest
pain, palpitations, fever or chills, abdominal pain, nausea/vomiting.
Objective Data
-
Labs:
Laboratory Results
02/01/24 02/01/24
04:05 07:16
WBC Pending
Hgb Pending
Hct Pending
Plt Count Pending
Sodium 137
Potassium 3.3 L D
Chloride 98
Carbon Dioxide 26
BUN 23 H
Creatinine 0.7
Glucose 116 H
Calcium 8.9
Total Bilirubin 0.5
AST 117 H
ALT 80 H
Alkaline Phosphatase 117
Vital Signs:
Vital Signs
Temp Pulse Resp BP Pulse Ox
98.0 F 74 23 138/87 93
02/01/24 03:19 02/01/24 05:00 02/01/24 05:00 02/01/24 04:02 02/01/24 05:00
I&O
01/31/24 02/01/24 02/02/24
06:59 06:59 06:59
Intake Total 1305 / 1305 450 / 450
Output Total 2700 / 2700 1100 / 1100
Balance -1395 / -1395 -650 / -650
Review of Systems
-
History Source: Patient
All other systems: Reviewed and negative
Constitutional: Reports No Symptoms; Denies Fever or Chills
Respiratory: Reports Cough
Cardiac: Reports No Symptoms
Neuro: Reports No Symptoms; Denies Dizzy, Headache or Lightheadedness
Physical Exam
-
General: No Apparent Distress and Comfortable
HEENT: Normocephalic
Respiratory: Other (Coarse breath sounds b/l); Negative Wheezes, Rales or Crackles
Cardiac: S1/S2, Irregular Rhythm and Tachycardic
GI: Soft, Nontender and Nondistended
Musculoskeletal: No Clubbing, No Cyanosis and No Edema
Skin: Warm
Neuro: Awake, Alert, Oriented and AO x 3
Psych: Calm
Data Reviewed
-
Ultrasound: Image personally visualized and interpreted, Report Reviewed by me and Discussed with Physician
Old Records: Reviewed
[2024-02-01] MEDS: MUCINEX 600 MG PO ×2 (08:00→20:37)
[2024-02-01] MEDS: KCL 20 MEQ PO (08:01)
[2024-02-01] MEDS: VIBRAMYCIN 100 MG PO ×2 (08:01→20:36)
[2024-02-01] MEDS: PEPCID 20 MG PO (08:01)
[2024-02-01] MEDS: VISBIOME 1 CAP PO (08:01)
[2024-02-01] MEDS: PLAVIX 75 MG PO (08:01)
[2024-02-01] MEDS: ELIQUIS 2.5 MG PO ×2 (08:01→20:33)
[2024-02-01] MEDS: PACERONE 200 MG PO ×2 (08:02→20:33)
[2024-02-01] MEDS: COSOPT EYE DROPS 1 DROP OPHTH ×2 (08:02→20:45)
[2024-02-01] MEDS: ALPHAGAN 0.2% EYE DROPS 1 DROP OPHTH ×2 (08:02→20:46)
[2024-02-01] MEDS: LASIX 40 MG IV (08:03)
[2024-02-01] MEDS: LOPRESSOR 25 MG PO ×2 (08:03→20:37)
[2024-02-01 08:35] LABS: Hematocrit 35.8 % (37.0-47.0); Hemoglobin 12.8 g/dL (12.0-16.0); Mean Corp Hgb Conc. 35.8 g/dL (33.0-37.0); Mean Corpuscular Hgb 36.2 pg (27.0-31.0); Mean Corpuscular Volume 101.1 fL (81.0-99.0); Mean Platelet Volume 10.2 fL (7.4-10.4); Platelet Count 312 10^3/uL (130-400); Red Blood Cell Count 3.54 10^6/uL (4.20-5.40); Red Cell Dist. Width 12.3 % (11.5-14.5); White Blood Cell Count 22.5 10^3/uL (4.8-10.8)
--- NOTE | 2024-02-01 09:00 | PTCARENOTE ---
Received pt @ change of shift; oriented x3, forgetful @ x's; alarms activated. SR w A-pacing. SpO2 94% on RA. Auscultated dim breath sounds throughout w crackles @ bases; shallow breaths/DOMÍNGUEZ. 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 +BS, abd soft/nt; reports
incomplete BM yesterday and feels constipated; MD made aware. Inc/cont of bladder. Assisted x1 w RW into BR for AM hygiene and void. s/p BR assisted into chair. Remains in chair for breakfast. Instructed on how to report care concerns and call
rose placed w in reach.
[2024-02-01] MEDS: ROCEPHIN 1000 MG IV (09:37)
[2024-02-01] MEDS: STERILE WATER FOR INJECTION 10 ML IV (09:37)
[2024-02-01] MEDS: MILK OF MAGNESIA 30 ML PO (09:37)
--- NOTE | 2024-02-01 11:32 | PTCARENOTE ---
pt. assisted back to bed x1 w RW. NPO pending abd US; awaiting US to bedside. Pt.'s to bedside and updated on plan of care.
--- NOTE | 2024-02-01 12:44 | W.PN.CARDCBS ---
Today's Communication / Plan
-
Gentle IV diuresis, hopefully can transition to oral Lasix in the next 24 to 48 hours
Maintaining sinus rhythm, would continue amiodarone
Impression / Plan
-
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
Impression:
Community-acquired pneumonia/bronchitis
Acute on chronic HFpEF
Recurrent paroxysmal atrial fibrillation after withdrawal of amiodarone
Medtronic dual-chamber pacemaker December 29, 2023
Moderate to severe aortic stenosis, dimensionless index 0.3, aortic valve area 0.7 cm2, mild aortic regurgitation
Moderate mitral regurgitation
CAD, presumably nonobstructive by sestamibi study 2015
Right carotid artery stent, greater than 70% stenosis left internal carotid artery suspected high-grade
Right iliac peripheral arterial stenosis
Glaucoma
History of stroke
Hypercholesterolemia
Hypertension
History of giant cell arteritis
Former smoker
Carotid ultrasound May 2023: Greater than 70% stenosis of the left, patent right carotid stent
Lower extremity arterial duplex January 2023: Right MICHELLE 0.57, right TBI 0.38, monophasic throughout, suspected inflow disease with dampened waveforms monophasic pedal flow, left MICHELLE within normal limits, 1.03, TBI 0.4, multiphasic flow through the
popliteal and multiphasic pedal waveforms
Echocardiogram November 26, 2023: Mild LVH, EF 55-60%, indeterminant diastolic function, normal RV, dense mitral annular calcification, moderate mitral regurgitation, aortic stenosis, visually appears at least moderate, peak and mean gradients are 31
and 13 mmHg, aortic valve area 0.7 [id number] mild aortic regurgitation. Dimensionless index is 0.3, normal atria, pulmonary artery systolic pressure 50-55 minutes of mercury. Peak and mean aortic valve gradients and Brianne were 67 and 50 mmHg with
a valve area of 0.6 cm2. Pulmonary artery pressure was normal in March
Lexiscan sestamibi stress test October 2015: Small fixed inferoseptal defect, EF 60%
Plan:
Maintaining sinus rhythm
Cont amiodarone at 200 mg BID. QTc WNL.
Ultimately be evaluated for repeat PVI as outpatient, had prior PVI [place] [address] Skyler Bernabe.
Continue beta heri
Cont IV lasix. AFib/flutter with RVR may have contributed to her HF.
EF 55-60% on limited TTE
May need to consider outpt eval of her
Cont medical therapy for nonMI troponin.
Progress Note - Business Control Specialist
Subjective
Date of Service: February 01, 2024
NAOE. Still with dyspnea at rest and fatigue. No chest pain or pressure. No edema.
Objective
Labs:
02/01/24 08:21
02/01/24 04:05
Labs
Hgb 12.8 g/dL (12.0-16.0) 02/01/24 08:21
Hct 35.8 % (37.0-47.0) L 02/01/24 08:21
Plt Count 312 10^3/uL (130-400) 02/01/24 08:21
Sodium 137 mmol/L (135-145) 02/01/24 04:05
Potassium 3.3 mmol/L (3.5-5.1) L D 02/01/24 04:05
BUN 23 mg/dl (7-17) H 02/01/24 04:05
Creatinine 0.7 mg/dL (0.6-1.0) 02/01/24 04:05
Glucose 116 mg/dl (70-99) H 02/01/24 04:05
Troponins
01/29/24 01/30/24 01/30/24
16:17 05:12 09:32
Troponin I 0.023 0.027 0.021
01/30/24
16:30
Troponin I Cancelled
Vital Signs and I&O:
Vital Signs
Temp Pulse Resp BP Pulse Ox
98.0 F 61 15 109/70 94
02/01/24 11:35 02/01/24 11:00 02/01/24 09:00 02/01/24 08:03 02/01/24 11:00
Vital Signs
Temp Pulse Resp BP Pulse Ox
98.0 F 61 15 /70 94
02/01/24 11:35 02/01/24 11:00 02/01/24 09:00 02/01/24 08:03 02/01/24 11:00
Intake & Output
01/30/24 01/31/24 02/01/24 02/02/24
06:59 06:59 06:59 06:59
Intake Total 1305 / 1305 450 / 450
Output Total 2700 / 2700 1100 / 1100
Balance -1395 / -1395 -650 / -650
Physical Exam
Physical Exam
Gen: NAD, AA, OOB to chair eating breakfast
HEENT: NC/AT, sclera anicteric
Neck: No JVD
CV: RRR, NL s1/s2, 2/6 ROSALINDA at the base
Lungs: No increased WOB on RA
Abd: S/ND
Ext: No LE edema
Skin: Warm, dry
Neuro: Non-focal
--- NOTE | 2024-02-01 13:51 | CM ---
CM following re: discharge planning.
Reviewed pt's chart, met with pt and pt's at bedside.
PT and OT evaluations noted - SNF level of care recommended. Both pt and his family preferred [facility]. A referral to [facility] made. Awaiting for determination.
D/C plan: [facility] when medically stable.
CM will follow to assist pt with discharge to [facility].
--- NOTE | 2024-02-01 13:58 | PN.CDI ---
Addendum entered and electronically signed by Fadia Osborn MD 02/01/24 14:29:
Documentation is complete at this time.
Original Note:
CDI
- -
CDI:
Physician Documentation Request
Admit Date: 01/29/24 12:38
Dear Doctor Tracey,
Please review the following and provide your response in the progress notes.
Clinical Indicators:
ER, 01/28
#Right upper lobe pneumonia, Sepsis
#...presenting with cough and weakness,
#...found to be septic with severe cytosis and
#...evidence of right upper lobe infiltrate on chest x-ray.
#...noted to be in rapid A-fib however was hemodynamically stable otherwise,
#...this is likely a response to her sepsis thus will not rate control her at this time,
#... will offer IV antibiotics and gentle IV fluids.
Initial VS: 98.4 125 26 177/83 94%
Laboratory Tests
01/29/24 01/30/24 01/31/24
09:44 05:12 03:09
WBC 21.1 H 20.9 H 20.0 H
02/01/24
08:21
WBC 22.5 H
PN, 01/31
#Acute hypoxic respiratory insufficiency 2/2 CAP vs bronchitis.
#...-Worsened leukocytosis, but remains afebrile.
#...-Now on room air saturating at 92 to 95%.
# UTI
#...-Urine culture negative.
#-Patient on ceftriaxone for pneumonia.
Please clarify which of the following most accurately describes the status of the patient's infection:
Sepsis, POA
Localized Infection Only, Without Systemic Illness
- indicate the site/source, such as UTI, pneumonia etc.
Other(please specify)
Sepsis
- Systemic manifestations of infection, with 2 or more SIRS criteria which include:
- Fever >100.4 degrees F or hypothermia < 96.8 degrees F
- Leukocytosis - WBC > 12,000 or leukopenia - WBC < 4,000 or > 10% bands
- Tachycardia > 90 beats per minute
- Tachypnea - RR > 20 breaths per minute or PaCO2 , 32mmHg
Source: Merck Manual 2013
- Indicate the known or suspected organism
- Indicate the known or suspected underlying infection, such as UTI, pneumonia or cellulitis
- Indicate if a suspected bacterial infection of unknown source
Severe Sepsis
- Sepsis with associated acute organ dysfunction, such as renal or respiratory failure
- Documentation should indicate the association between the sepsis and the organ dysfunction
Use of terms such as suspected, likely, concern for, or probable (associated with a specific diagnosis that is being evaluated, monitored, or treated as if it exists) are acceptable and can be coded in the inpatient setting, when documented at the
time of discharge.
Thank you,
Aisha Morales RN BSN CCDS
CDI Specialist
please contact via tiger text
Please use your independent medical judgment in providing your response.
--- NOTE | 2024-02-01 14:12 | PN.CDI ---
CDI
- -
CDI:
Physician Documentation Request
Admit Date: 01/29/24 12:38
Dear Doctor Tracey,
Please review the following and provide your response in the progress notes.
Clinical Indicators:
PN, 01/29 0253
#Patient is in respiratory distress, ....
#...noted increase of work accessory muscles RR 38-42,
#Pulse ox 80's RA, BP 168/64, HR 105-120's. Lungs rales, wheezes, sounds congested,
#...Oxygen level 94% on 5L. ...
#Patient continuos to be in distress, patient reports she feels little better
#...but feels exhausted coughing and spitting out sputum clear thick sputum RR 30's,
#...Oxygen 90-94% 5L, ...
#...patient continues to breath in the 30s and distressed.
#...pox 95% on 6LC.
#...High flow will be a better option for patient at present.
01/29/24 23:57 - Patient Care Note
#...patient is diaphoretic, reparations 30-40 pox 88 2lNC.
#...Crackles auscultated t/o lung waterman. patient placed on 5l NC pox 95%.
01/30/24 01:08 EST - Patient Care Note
#Pt on 6LNC with SpO2 98%.
01/30/24 15:46 - Patient Care Note
#POX spot check 95%/4L. pt no longer SOB Respiration even.
01/31/24 08:00 (created 01/31/24 09:58) - Patient Care Note
#...she is on 4L nasal cannula with a strong moist cough, non productive.
PN, 01/31
#Acute hypoxic respiratory insufficiency 2/2 CAP vs bronchitis.
Laboratory Tests
01/29/24
23:44
pH 7.37
pCO2 28 L
pO2 71 L
HCO3 16.2 L
Base Excess -7.6
ABG O2 Sat (Measured) 96.8
O2 Delivery Level 94% 5l
Based on the above and your clinical assessment, please clarify which of the following accurately represents the patient's respiratory status:
Acute respiratory failure
Acute hypoxic respiratory insufficiency
Other(please specify)
Additional information for Respiratory Failure:
Recognized criteria for Respiratory Failure (Source: [employer]ist Jan 2013)
ABGs: (1 or more) Symptoms Please indicate type if known
1. p)2 <60 or RA SPO2 <91% on RA 1. Tachypnea, SOB, dyspnea Hypoxic
2. pCO2 50 and pH <7.35 2. Use of accessory muscles Hypercapnic
3. pO2 decrease of pCO2 increase by 3. Pallor or cyanosis Hypoxic and Hypercapnic
10 mmHg from baseline if known 4. Anxiety or restlessness Unable to determine
5. Unable to speak in full sentences
Supplemental O2 of > 40% (5LPM) Intubation is not required
Use of terms such as suspected, likely, concern for, or probable (associated with a specific diagnosis that is being evaluated, monitored, or treated as if it exists) are acceptable and can be coded in the inpatient setting, when documented at the
time of discharge.
Thank you,
Aisha Morales RN BSN CCDS
CDI Specialist
please contact via tiger text
Please use your independent medical judgment in providing your response.
--- NOTE | 2024-02-01 16:14 | PTCARENOTE ---
Report given to 4E RN. Patient transported via wheelchair on nut process helper w belongings and to 405, bed 2. No further needs from this RN.
--- NOTE | 2024-02-01 16:45 | PTCARENOTE ---
Received pt from ICU. Report from RN. Pt awake,alert and oriented x3, forgetful at times. Pt VSS 95% on 2L.Pt continues with SOB, NSR/Apaced on tele. Pt oriented to room, call rose within reach, bed alarm placed for saftey instructed to ring for
assistance, at bedside plan of care continues.
--- NOTE | 2024-02-01 19:02 | W.PN.UPDATE ---
Update Note
Progress Note Update
Patient's abdominal ultrasound 02/01/2024 reports a 7.7 x 5.8 x 5.8 cm right pleural effusion.Patient reported to have increasing oxygen requirements, now on 2 L O2 NC and saturating at 95%.
IR has been consulted for Thora.
Fluid analysis to follow.
[2024-02-01] MEDS: CRESTOR 20 MG PO (20:38)
[2024-02-01] MEDS: THERAGRAN 1 TABLET PO (20:38)
[2024-02-01] MEDS: MAG-TAB SR 84 MG PO (20:38)
[2024-02-01] MEDS: XALATAN OPHTHALMIC SOLUTION 1 DROP RIGHT EYE (20:45)
[2024-02-01 21:07] LABS: LDH 393 U/L (120-246)
[2024-02-02] VITALS (9 sets, daily range): BP systolic 66–178; BP diastolic 59–80; PULSE 64; O2SAT 92–98; BMI 22.0
[2024-02-02] MEDS: SYNTHROID 112 MCG PO (05:18)
[2024-02-02 08:01] LABS: Hemoglobin 12.6 g/dL (12.0-16.0); Mean Corp Hgb Conc. 34.1 g/dL (33.0-37.0); Mean Corpuscular Hgb 35.7 pg (27.0-31.0); Mean Corpuscular Volume 104.8 fL (81.0-99.0); Mean Platelet Volume 10.3 fL (7.4-10.4); Platelet Count 333 10^3/uL (130-400); Red Blood Cell Count 3.53 10^6/uL (4.20-5.40); Red Cell Dist. Width 12.7 % (11.5-14.5); White Blood Cell Count 19.9 10^3/uL (4.8-10.8)
--- NOTE | 2024-02-02 08:24 | W.PN.HOSP.TC ---
Addendum entered and electronically signed by Fadia Osborn MD 02/02/24 17:06:
I personally performed a history and physical exam of the patient and discussed management with the resident. I reviewed the resident's note and agree with the documented findings and plan of care HPI/CC except changes in my documentation
83-year-old female admitted with 3 days of progressive weakness and cough
CVS: S1-S2 normal, sm at apex
Chest: CTA
Abdomen: Soft, NT / Bowel sounds present
Extremities: No edema
Echo 01/31/2024-normal LV size and function. EF 55 to 60%. Mild AI. Mild to moderate TR. Pulmonary artery pressure 15 to 20 mmHg.
# Acute hypoxic respiratory insufficiency secondary to community-acquired pneumonia and bronchitis
Continue ceftriaxone doxycycline
COVID-19 influenza PCR negative
Legionella urinary and strep pneumonia urinary antigen negative
Blood culture negative
Wean oxygen as tolerated
Continue mucolytic's and bronchodilators
WBCs improving
But pt looks better
Not enough fluid for thoracentesis. Repeat chest x-ray reviewed by me-Improving interstitial edema. Right upper lobe pneumonia
#Constipation resolving.
# Atrial fibrillation with RVR
History of pacemaker for sick sinus syndrome
Patient converted to sinus rhythm
Lopressor to be continued along with Eliquis, amiodarone 200 mg twice daily
Patient to be evaluated for PVI as outpatient.� She had a PVI in [address] Bernabe
# Acute on chronic heart failure with preserved ejection fraction-Continue Lasix ,changed to PO, daily weights with intake output charting.
# Moderate to severe arctic stenosis, Moderate MR
# Mild transaminitis- Chronic� since 2015 . Hep C AB neg. Discussed with daughters re OP GI Follow up need. USS abdomen- NO acute changes
# Hypokalemia-replace and follow
# Hyperlipidemia-continue rosuvastatin
# Hypothyroidism-continue Synthroid 100 mcg
# PAD-right iliac, right carotid artery stent 2019, greater than 70% stenosis left ICA-Continue Plavix and Statin-OP Vascular eval.
# History of Giant Cell Arteritis
# Glaucoma-continue brimonidine, dorzolamide-timolol,Vyzulta
# History of CVA
# GERD
#Ex Smoker
D/W Pulm
Called and left a message for daughter Ruth
Part of this note was created using voice recognition system. Occasional wrong word or��sound alike� substitutions may have inadvertently occurred due to the inherent limitations of voice recognition software. If noted kindly bring it to my
attention for correction.
Discharge planning
Original Note:
Today's Communication/Plan
-
Possible thoracentesis today
Continue antibiotics
Continue IV Lasix, follow BMP
Monitor I's and O's, daily weights
Monitor QTc
Assessment / Plan
Assessment / Plan
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
Assessment/plan:
#Acute hypoxic respiratory insufficiency 2/2 CAP vs bronchitis.
-Leukocytosis improving, remains afebrile.
-Back on 2L O2 NC saturating at 94 to 97%.
-Wean as tolerated
-New pleural effusion on abdominal US 01/31, not enough for Thora per IR.
-IR appreciated.
-Weight up 3 lbs, follow daily weights, I's and O's.
-Continue Ceftriaxone/Doxy
-Blood cx NTD
-Continue bronchodilators, Mucinex
-PT/OT
# UTI
-Urine culture negative.
-Patient on ceftriaxone for pneumonia.
#Afib/flutter with RVR
-Currently on amiodarone 200 mg twice daily.
-Continue Eliquis on Lopressor.
-PVI [place] [address] Bernabe, patient will be reevaluated for another PVI as outpatient.
-Monitor on telemetry, follow QTc.
-Cardiology on board.
#Acute on chronic HFpEF
#Moderate to severe aortic stenosis with moderate MR.
-Echo 01/30 unchanged (EF 55 to 60%, low-flow AAS, mild AR, mild to moderate TR)
-Continue IV Lasix.
-Follow I's and O's, daily weights.
-Repeat echo to reassess EF.
#Hypokalemia
-Resolved s/p 40 mEq KCl, patient takes 20 mEq and KCl daily.
-Monitor and replete.
Non-AK high troponin.
-Peaked at 0.027, Most likely RV strain.
#Mod-Sever
-S/p PPM
#Mild transaminitis
-Hepatocellular injury.
-Consider steatotic liver disease vs NAFLD
-Pt's daughter reports family hx of FLD.
-Abd US negative
-Outpatient GI f/u.
-HepC serology negative.
-Follow LFT.
-GI consult if continues to worsen.
#Constipation
-Bowel regimen with milk of magnesia.
#Hypokalemia
replete and follow
#Glaucoma
#Hx of CVA
#GERD
#HLD
#Anxiety
#Hypothyroidism
TSH WNL
cont home meds
DVT ppx-Eliquis
Code status-Full code - confirmed with patient
Anticipated Discharge: > 48 hours
Subjective/Interval History
-
Date of Service: February 02, 2024
Patient was seen and examined, she has some residual cough and stated that she is nauseous. She could not get thoracentesis today because of concerns that does not have enough fluid requiring a tap. She reports feeling better about from her cough.
Objective Data
-
Labs:
Laboratory Results
02/02/24
07:28
WBC 19.9 H
Hgb 12.6
Hct 37.0
Plt Count 333
Sodium Pending
Potassium Pending
Chloride Pending
Carbon Dioxide Pending
BUN Pending
Creatinine Pending
Glucose Pending
Calcium Pending
Total Bilirubin Pending
AST Pending
ALT Pending
Alkaline Phosphatase Pending
Vital Signs:
Vital Signs
Temp Pulse Resp BP Pulse Ox
98.2 F 65 18 127/61 97
02/02/24 08:10 02/02/24 08:10 02/02/24 08:10 02/02/24 08:10 02/02/24 08:10
I&O
02/01/24 02/02/24 02/03/24
06:59 06:59 06:59
Intake Total 450 / 450 240 / 240
Output Total 1100 / 1100
Balance -650 / -650 240 / 240
Review of Systems
-
History Source: Patient
All other systems: Reviewed and negative
Constitutional: Reports No Symptoms; Denies Fever or Chills
Respiratory: Reports Cough and Trouble Breathing
Cardiac: Reports No Symptoms
Abdomen/GI: Reports No Symptoms; Denies Abdominal Pain, Nausea, Vomiting or Diarrhea
Neuro: Reports No Symptoms; Denies Dizzy, Headache or Lightheadedness
Physical Exam
-
General: No Apparent Distress and Comfortable
HEENT: Normocephalic
Respiratory: Crackles (Bilateral lower lobes), Non Labored Respirations and Other (Respiratory squeaks right upper lobes); Negative Wheezes or Rales
Cardiac: S1/S2, Irregular Rhythm and Tachycardic
GI: Soft, Nontender and Nondistended
Musculoskeletal: No Clubbing, No Cyanosis and No Edema
Skin: Warm
Neuro: Awake, Alert, Oriented and AO x 3
Psych: Calm
Data Reviewed
-
Diagnostic Radiology: Image personally visualized and interpreted, Report Reviewed by me and Discussed with Physician
Ultrasound: Image personally visualized and interpreted, Report Reviewed by me and Discussed with Physician
Labs: Labs Reviewed by me and Discussed with Physician
Old Records: Reviewed
[2024-02-02 08:46] LABS: ALT (SGPT) 95 U/L (0-35); AST (SGOT) 110 U/L (14-36); Albumin 3.5 g/dl (3.5-5.0); Alkaline Phosphatase 127 U/L (38-126); Blood Urea Nitrogen 21 mg/dl (7-17); Calcium 9.3 mg/dl (8.4-10.2); Carbon Dioxide 29 mmol/L (22-30); Chloride 97 mmol/L (98-107); Estimated Creatinine Clearance 41 ml/min; Glucose 108 mg/dl (70-99); LDH 371 U/L (120-246); Sodium 139 mmol/L (135-145); Total Bilirubin 0.5 mg/dl (0.2-1.3); eGFR > 60.00
--- NOTE | 2024-02-02 08:47 | CON.PUL ---
Consultation
Consultation Request
Date/Time Consultation Requested: 02/02/2024742
Date/Time Consultation Performed: 02/02/2024819
Requesting Provider: Dr. Webb
Performing Provider: Dr. Sims
Reason for Consultation: Pleural effusion/hypoxia
Medical History
-
Chief Complaint: SOB + chest congestion
History of Present Illness:
83-year-old female non-smoker with a past medical history of A-flutter/A-fib, PMR, hypothyroidism, hypertension, chronic HFpEF, aortic stenosis, hyperlipidemia, history of COVID-19 (04/2021), CVA and spinal compression fracture who presents with
worsening SOB + chest congestion. She also endorsed weakness, fatigue and congestion over the last week. It has been causing her to have difficulty sleeping due to coughing. She apparently had been exposed to a person who was sick with bronchitis
1 week TILE GRINDER. In the ER she was afebrile to 98.4 �F, pulse rate 125, breathing at 26 breaths/min, BP 177/83 and saturating 94% on room air. Initial EKG showed A-fib with RVR with ventricular rate 133 bpm. Initial labs showed leukocytosis of 21.1,
Hb 13.5, potassium 3.4, serum bicarbonate level 19, AST 41, proBNP 7700, initial troponin 0.023, and COVID antigen negative. Flu A/B was negative and blood cultures were collected. CXR showed opacification in the right upper lobe suspicious for
pneumonia. In the ER she was given ceftriaxone, Zithromax, IVF with NS 0.9% x 1L, and Tylenol. She was admitted to the hospitalist service for further care. Antibiotics was continued with ceftriaxone/doxycycline. Cardiology was consulted and
amiodarone was restarted and metoprolol was continued. She was continued on her oral diuretic with Lasix 40 mg daily. This was later changed to IV Lasix 40 mg daily on 01/31. Due to her transaminitis that worsen, an abdominal ultrasound was
obtained on 01/31, showing a 7.7 x 5.8 x 5.8 cm right-sided pleural effusion with no evidence of acute cholecystitis or cholelithiasis. Her oxygen requirements improved during her hospitalization and she was down to room air briefly on 01/31. On the
evening of 01/31, she was placed back onto 2 L/min nasal cannula. Pulmonary service now consulted for additional management/recommendations.
When I saw the patient she was resting in bed in no acute distress on 2 L/min breathing comfortably. She says she feels nauseous. She is occasionally coughing up mucus which is normal for her. She says she takes an inhaler at home but was unable
to tell me which 1. She currently denies chest pain, CARVALHO, vomiting, diarrhea, fevers or chills.
PMHx: Atrial flutter/paroxysmal A-fib, PMR, hypothyroidism, history of acute pulmonary edema, hypertension, chronic HFpEF, history of junctional rhythm, aortic stenosis (moderate), mixed hyperlipidemia, history of pneumonia, history of COVID-19
(04/2021), history of CVA, glaucoma, compression fracture of spine
PSHx: Arthroplasty of knee, bilateral knee replacement, bilateral cataract surgery, s/p coronary stent into the LCx (07/2017), tonsillectomy, R�CEA ([place] � 2017), temporal artery biopsy ([place]) carotid artery stent
Past Medical History
Past Medical History: Other (Above as per HPI)
Past Surgical History: Other (Above as per HPI)
Social History
Tobacco: Non-smoker
Alcohol: Occasional
Drug: None
Family History
Family History: CAD (Father + mother) and Other (Sister: CHF + bradycardia ( at age 91))
Allergies / Home Medications
Allergies
Allergy/AdvReac Type Severity Reaction Status Date / Time
ampicillin Allergy Swelling Verified 01/29/24 09:09
Penicillins Allergy Swelling Verified 01/29/24 09:09
Home Medications
�Medication �Instructions �Recorded �Confirmed �Last Taken �Type
famotidine 20 mg tablet 20 mg PO BID Gastrointestinal issue 06/07/18 01/29/24 01/28/24 History
rosuvastatin 10 mg tablet 20 mg PO HS High cholesterol 06/07/18 01/29/24 01/28/24 History
clopidogrel 75 mg tablet 75 mg PO DAILY Blood clot 12/25/21 01/29/24 01/28/24 History
prevention/tx
levothyroxine 112 mcg tablet 112 mcg PO DAILY AT 0700 Thyroid 12/25/21 01/29/24 01/29/24 History
(Synthroid)
furosemide 40 mg tablet 40 mg PO DAILY #30 tabs 12/29/21 01/29/24 01/28/24 Rx
apixaban 5 mg tablet 5 mg PO BID Blood clot 01/21/22 01/29/24 01/28/24 History
prevention/tx
potassium chloride 20 mEq 20 meq PO DAILY Electrolyte 01/21/22 01/29/24 01/28/24 History
tablet,extended Repletion
release(part/cryst) (Klor-Con M)
L.acid,rhamn-Bif anim-B.subt 15 1 cap PO DAILY Supplement 12/29/23 01/29/24 01/28/24 History
billion cell-bacterio 15 mg
capsule,DR (Mage)
acetaminophen 650 mg 650 mg PO Q8HPRN PRN moderate pain 12/29/23 01/29/24 01/29/24 History
tablet,extended release
magnesium chloride 70 mg 70 mg PO HS Supplement 12/29/23 01/29/24 01/28/24 History
(magnesium chloride)
tablet,delayed release
bemochycexcc-jnlqlevl-ypqrgw 1 tab PO HS Supplement 12/29/23 01/29/24 01/28/24 History
tablet (Multivitamin 50 Plus
tablet)
Vyzulta 1 drp RIGHT EYE HS Eye Condition 01/29/24 01/29/24 Unknown History
brimonidine 0.2 % eye drops 1 drp RIGHT EYE BID Eye Condition 01/29/24 01/29/24 Unknown History
dorzolamide 22.3 mg-timolol 6.8 1 drp RIGHT EYE BID Eye Condition 01/29/24 01/29/24 Unknown History
mg/mL eye drops
metoprolol succinate 25 mg 12.5 mg PO BID Blood Pressure 01/29/24 01/29/24 01/28/24 History
tablet,extended release 24 hr
Review of Systems
-
History Source: Patient
All other systems: Negative unless noted
Vitals / Labs / Diagnostic Testing
Vital Signs
Temp Pulse Resp BP Pulse Ox
98.7 F 66 15 177/67 98
02/02/24 08:50 02/02/24 08:50 02/02/24 08:50 02/02/24 08:50 02/02/24 08:50
Lab Data
02/02/24 07:28
02/02/24 07:28
Microbiology
01/29/24 10:13 Blood/Venous Blood Culture - Preliminary
No Growth in 72 hours- Final report to follow
01/29/24 10:13 Blood/Venous Blood Culture - Preliminary
No Growth in 72 hours- Final report to follow
01/29/24 20:53 Urine Urine Culture - Final
NO GROWTH
01/29/24 20:53 Urine Legionella Urinary Antigen - Final
Negative for Legionella pneumophila Serogroup 1 antigen.
A negative result does not rule out the possiblity of
Legionella infection due to other serogroups or species of
Legionella. Clinical correlation is recommended.
01/29/24 20:53 Urine Streptococcus pneumoniae Antigen (M - Final
Negative for Streptococcus pneumoniae antigen.
A negative result does not exclude infection with
Streptococcus pneumoniae. Clinical correlation is
recommended.
Diagnostic Testing:
Physical Exam
-
HEENT: Normocephalic and Anicteric
Cardiovascular: S1/S2 and Peripheral Edema (negative)
Respiratory: Wheeze (negative), Rales (Bilateral (R >L)), Rhonchi (negative) and Non-Labored Respirations
GI: Soft, Non Distended, Non Tender and Normal Bowel Sounds
Neurology: Awake, Alert and Tremors (negative)
Skin: Warm and Dry
General: Respiratory Distress (negative), Comfortable, Fever (negative) and Chills (negative)
Assessment
-
Assessment: 83-year-old female non-smoker with a past medical history of A-flutter/A-fib, PMR, hypothyroidism, hypertension, chronic HFpEF, aortic stenosis, hyperlipidemia, history of COVID-19 (04/2021), CVA and spinal compression fracture who
presents with worsening SOB + chest congestion. She also endorsed weakness, fatigue and congestion over the last week. It has been causing her to have difficulty sleeping due to coughing. She apparently had been exposed to a person who was sick
with bronchitis 1 week TILE GRINDER. She was in A-fib with RVR in the ER and found to have elevated proBNP of 7700. Antibiotics were started and she was admitted to the floor and started on antibiotics with cardiology consulted. CXR and 01/28 showed acute
pulmonary edema and diuretics were changed to IV. An abdominal ultrasound on 01/31 showed a right sided pleural effusion. Pulmonary service now consulted for additional management/recommendations.
Chronic conditions TILE GRINDER: Atrial flutter/paroxysmal A-fib, PMR, hypothyroidism, history of acute pulmonary edema, hypertension, chronic HFpEF, history of junctional rhythm, aortic stenosis (moderate), mixed hyperlipidemia, history of pneumonia,
history of COVID-19 (04/2021), history of CVA, glaucoma, compression fracture of spine
Impression:
#RUL pneumonia with small parapneumonic effusion
#Sepsis due to above without shock
#Transaminitis
#Atrial flutter/A-fib with A-fib with RVR on admission and currently in NSR
#Acute HFpEF exacerbation likely due to arrhythmia above in the setting of sepsis without shock
#Nonreversible symptomatic bradycardia due to SSS s/p dual-chamber PPM (implanted 12/29/2023)
#Abnormal urinalysis suspicious for UTI
#Personal history of COVID-19 (April 2021)
#History of CVA
#Suspected low-flow aortic stenosis (seen on TTE from 01/31/2024)
#Valvular heart disease with mild�moderate TR
Plan:
- Right upper lobe pneumonia seen on initial CXR from 01/29/2024. She has a right-sided pleural effusion which would be expected in the setting of pneumonia and also with acute decompensated heart failure
- Effusion is simple appearing on chest ultrasound and too small to safely tap given risk for complications including pneumothorax + bleeding
- No need to drain at this time
- Continue with diuretics as per cardiology; trend I/O and daily weight
- Continue with antibiotics, currently on ceftriaxone/doxycycline and plan for 5-7 days of antibiotics assuming she continues to clinically improve and remains afebrile for 48 hours prior to stopping
- Legionella + strep pneumoniae urine antigens were both negative
- Patient never submitted a sputum culture
- Continue mucolytics with mucinex
- Maintain SpO2 >90-94% with supplemental O2 and wean as tolerated with ambulatory pulse oximetry prior to discharge
- She will need repeat CXR in 4 to 6 weeks to follow-up her pneumonia resolution and her pleural effusion
- prn nebulized bronchodilators - she is not currently bronchospastic
- She initially had A-fib with RVR with acute decompensated heart failure with elevated proBNP >7000; initially continued on her oral Lasix but then transition to IV Lasix on 01/31
- She is now being transitioned back to oral Lasix starting tomorrow
- Defer diuretics to cardiology
- She just had an echo done on 01/31/2024 showing similar findings compared to prior TTE in October 2023
- Goal HR<110
- Replete electrolytes with K>4, Mg>2
- Trend LFTs
- Incentive spirometer encouraged 10x per hour for at least 4 hrs a day
- Maintain euglycemia with goal BG >100 and <180
- DVT ppx: Eliquis
Pulmonary service will continue to follow along. Outpatient follow-up will be arranged for full PFTs and follow up imaging.
Data:
CXR 01/29/2024: Progressive interstitial opacity in the right upper lobe, likely pneumonia. Recommend follow-up after conservative therapy to assess for complete resolution.
CXR 02/02/2024: Interval improvement in interstitial process, suggesting improving interstitial edema; Persistent hazy opacity in the right upper lobe could represent residual asymmetric edema, though superimposed pneumonia cannot be excluded.
Continued follow-up recommended.
Chest US 02/02/2024: Trace LEFT pleural effusion. Amount of fluid present not sufficient for safe thoracentesis.
TTE 01/31/2024:
Technically difficult study.
Normal left ventricular size and function. Normal regional wall motion. Left
ventricular ejection fraction is 55-60%.
Potential low flow aortic stenosis. Peak/mean gradients across the aortic valve
are 10/5 mmHg with aortic valve area 1.4 cm2. Mild aortic regurgitation.
Mild to moderate tricuspid regurgitation. Estimated pulmonary artery pressure
of 15-20 mmHg
Compared to a previous echo from October 2023, findings are similar.
Total time spent today was 56 minutes for this encounter. Time includes reviewing laboratory test/imaging results, reviewing pertinent medical records, obtaining and reviewing medical history, performing an appropriate exam, ordering medications,
tests and procedures. Time also includes documentation of this encounter, coordinating patient care and communicating with other healthcare professionals. Total time does not include separately billed tests performed on this date of service.
--- NOTE | 2024-02-02 09:57 | CM ---
Crystal was trasnferred from ICU last evening. Plan is for transfer to [facility] when medically ready. Referral in [facility]; accepted for transfer pending bed availability on the day of discharge.
SNF authorization will need to be obtained from [facility]/ prior to transfer.
Plan: CM to follow for SNF authorization prior to discharge; [facility] is facility of choice.
[2024-02-02] MEDS: MUCINEX 600 MG PO ×2 (10:02→21:42)
[2024-02-02] MEDS: VIBRAMYCIN 100 MG PO ×2 (10:02→21:42)
[2024-02-02] MEDS: VISBIOME 1 CAP PO (10:02)
[2024-02-02] MEDS: PEPCID 20 MG PO (10:03)
[2024-02-02] MEDS: PACERONE 200 MG PO ×2 (10:03→21:44)
[2024-02-02] MEDS: ELIQUIS 2.5 MG PO ×2 (10:03→21:42)
[2024-02-02] MEDS: PLAVIX 75 MG PO (10:03)
[2024-02-02] MEDS: KCL 20 MEQ PO (10:03)
[2024-02-02] MEDS: MIRALAX 17 GRAMS PO (10:04)
[2024-02-02] MEDS: LASIX 40 MG IV (10:04)
[2024-02-02] MEDS: LOPRESSOR 25 MG PO (10:04)
[2024-02-02] MEDS: ALPHAGAN 0.2% EYE DROPS 1 DROP OPHTH ×2 (10:33→21:43)
[2024-02-02] MEDS: STERILE WATER FOR INJECTION 10 ML IV (10:36)
[2024-02-02] MEDS: ROCEPHIN 1000 MG IV (10:36)
[2024-02-02] MEDS: COSOPT EYE DROPS 1 DROP OPHTH ×2 (10:38→21:43)
--- NOTE | 2024-02-02 12:34 | W.PN.CARDCBS ---
Addendum entered and electronically signed by Madiha Bernabe MD 02/02/24 14:23:
I saw and examined the patient.
The Customer Support Professional's note was reviewed and I agree with the note.
Comment: She was sleeping when I went in. She appears comfortable. She remains on oxygen. Continue treatment of pneumonia.
-From a cardiac point of view with heart failure with preserved ejection fraction she has been diuresing and clinically appears improved. We will change Lasix to 40 mg oral daily. Continue to follow. Her blood pressure is elevated and she has
struggled with hypokalemia. We have added low-dose spironolactone. Continue to follow. Reassess labs. Consider SGLT2 inhibitor.
-Echocardiogram from 03/2023 with normal ejection fraction moderate MR and possibly severe aortic valve stenosis with low gradient. Similar but a more limited study on 10/2023. Follow-up study this admission the aortic valve is not well visualized.
Continue to reassess given patient may have moderate to severe, severe mitral regurgitation.
-She has paroxysmal atrial fibrillation remains on amiodarone with plan as noted. Changed back to Toprol-XL from Lopressor started in the hospital. Rhythm continues to be sinus. Repeat EKG in the a.m.
-LFT elevation noted. May be in part related to antibiotics. Continue to follow while on amiodarone.
-Carotid artery stenosis noted. Continue to follow. Continue risk factor modification.
Original Note:
Today's Communication / Plan
-
po lasix 40mg daily
add spironolactone for hypokalemia and hypertension
transition lopressor to toprol
continue amiodarone 200mg BID for 2 weeks then decrease to daily dosing
repeat EKG in AM
OP follow up of suspected low flow
follow LFTs on amio
Impression / Plan
-
Primary sueding machine tender: Dr Hansen
Impression:
Community-acquired pneumonia/bronchitis
Acute on chronic HFpEF
Recurrent paroxysmal atrial fibrillation after withdrawal of amiodarone
[employer] dual-chamber pacemaker December 29, 2023
Moderate to severe aortic stenosis, dimensionless index 0.3, aortic valve area 0.7 cm2, mild aortic regurgitation
Moderate mitral regurgitation
CAD, presumably nonobstructive by sestamibi study 2015
Right carotid artery stent, greater than 70% stenosis left internal carotid artery suspected high-grade
Right iliac peripheral arterial stenosis
Glaucoma
History of stroke
Hypercholesterolemia
Hypertension
History of giant cell arteritis
Former smoker
Carotid ultrasound May 2023: Greater than 70% stenosis of the left, patent right carotid stent
Lower extremity arterial duplex January 2023: Right MICHELLE 0.57, right TBI 0.38, monophasic throughout, suspected inflow disease with dampened waveforms monophasic pedal flow, left MICHELLE within normal limits, 1.03, TBI 0.4, multiphasic flow through the
popliteal and multiphasic pedal waveforms
Echocardiogram November 26, 2023: Mild LVH, EF 55-60%, indeterminant diastolic function, normal RV, dense mitral annular calcification, moderate mitral regurgitation, aortic stenosis, visually appears at least moderate, peak and mean gradients are 31
and 13 mmHg, aortic valve area 0.7 [id number] mild aortic regurgitation. Dimensionless index is 0.3, normal atria, pulmonary artery systolic pressure 50-55 minutes of mercury. Peak and mean aortic valve gradients and Brianne were 67 and 50 mmHg with
a valve area of 0.6 cm2. Pulmonary artery pressure was normal in March
Lexiscan sestamibi stress test October 2015: Small fixed inferoseptal defect, EF 60%
ECHO 01/31/24: Technically difficult study, EF 55 to 60%, potential low-flow with peak/mean gradients 10/5 mmHg, KONSTANTIN 1.4 cm� (suspect gradients/valve area inaccurate as limited views of aortic valve), mild AR, mild to moderate TR, PAP 15 to 20 mmHg
Plan:
-Continues with treatment for pneumonia/bronchitis. with persistent leukocytosis
-She reports continued good response to diuresis. Cr stable. weight down at least 5 pounds from admission although unclear if weights are accurate. will transition to po lasix 40mg daily
-Not on home O2 prior to admission. Continue to wean as able
-EF preserved by echo 01/31/24, valve gradients have been up and down with potential low flow . will need to be monitored as OP
-BPs remain elevated. as with some hypokalemia this admission, will add spironolactone 12.5mg daily and follow
-could consider for SGLT2 inhibitor
-CHF education
-remains in apaced rhythm on review of tele. transition lopressor to toprol 25mg BID. would continue amiodarone 200mg BID for 2 weeks then decrease to 200mg daily. QTc 477ms by EKG 01/31 but paced rhythm. repeat in AM
-continue eliquis 2.5mg BID
-Ultimately be evaluated for repeat PVI as outpatient, had prior PVI [place] [address] Skyler Bernabe.
-Cont medical therapy for nonMI troponin. no CP
-follow LFTs. abd US 01/31 without clear etiology. ? abx related. follow closely on amiodarone
-PT/OT evals
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
Subjective
Date of Service: February 02, 2024
reports continued good urine output with diuretic. no CP
Objective
Labs:
02/02/24 07:28
02/02/24 07:28
Labs
Hgb 12.6 g/dL (12.0-16.0) 02/02/24 07:28
Hct 37.0 % (37.0-47.0) 02/02/24 07:28
Plt Count 333 10^3/uL (130-400) 02/02/24 07:28
Sodium 139 mmol/L (135-145) 02/02/24 07:28
Potassium 4.0 mmol/L (3.5-5.1) 02/02/24 07:28
BUN 21 mg/dl (7-17) H 02/02/24 07:28
Creatinine 0.8 mg/dL (0.6-1.0) 02/02/24 07:28
Glucose 108 mg/dl (70-99) H 02/02/24 07:28
Troponins
01/30/24
16:30
Troponin I Cancelled
Vital Signs and I&O:
Vital Signs
Temp Pulse Resp BP Pulse Ox
98.7 F 61 20 178/80 97
02/02/24 11:43 02/02/24 11:43 02/02/24 11:43 02/02/24 11:43 02/02/24 11:43
Vital Signs
Temp Pulse Resp BP Pulse Ox
98.7 F 61 20 178/80 97
02/02/24 11:43 02/02/24 11:43 02/02/24 11:43 02/02/24 11:43 02/02/24 11:43
Intake & Output
01/31/24 02/01/24 02/02/24 02/03/24
07:59 07:59 07:59 07:59
Intake Total 1305 / 1305 450 / 450 240 / 240
Output Total 2700 / 2700 1100 / 1100
Balance -1395 / -1395 -650 / -650 240 / 240
Physical Exam
Physical Exam
GEN: No distress, awake, alert, oriented x3. on supp O2. frail appearing
HEENT: supple, anicteric, mmm, eomi
LUNGS: few crackles on R, no wheezes
CV: Reg, S1/S2, 1/6 syst LSB
ABD: soft, BS+, NT/ND
EXT: No cyanosis, clubbing, edema
NEURO: Gross non-focal
SKIN: Warm, pink, dry. No rash
[2024-02-02] MEDS: ALDACTONE 12.5 MG PO (15:22)
--- NOTE | 2024-02-02 18:20 | PTCARENOTE ---
Receive patient this am AAOX3. Pt off unit today for chest X-ray. Pt then went to Intervention Radiology for thoracentesis. Thoracentesis not done secondary to there not being a enough fluid to tap. Pt OOB to chair an tolerated well. Pt tolerated
diet but appetite is poor. Pt offered no complaints. Made patient comfortable. Cont to assess patient status.
[2024-02-02] MEDS: CRESTOR 20 MG PO (21:42)
[2024-02-02] MEDS: MAG-TAB SR 84 MG PO (21:43)
[2024-02-02] MEDS: THERAGRAN 1 TABLET PO (21:43)
[2024-02-02] MEDS: XALATAN OPHTHALMIC SOLUTION 1 DROP RIGHT EYE (21:43)
[2024-02-02] MEDS: TOPROL XL 25 MG PO (21:44)
[2024-02-03 03:11] VITALS: BP 137/65
[2024-02-03] MEDS: SYNTHROID 112 MCG PO (05:00)
[2024-02-03 06:00] VITALS: BMI 21.8
[2024-02-03 07:20] LABS: Hematocrit 35.7 % (37.0-47.0); Hemoglobin 12.2 g/dL (12.0-16.0); Mean Corp Hgb Conc. 34.2 g/dL (33.0-37.0); Mean Corpuscular Hgb 35.6 pg (27.0-31.0); Mean Corpuscular Volume 104.1 fL (81.0-99.0); Mean Platelet Volume 10.1 fL (7.4-10.4); Platelet Count 344 10^3/uL (130-400); Red Blood Cell Count 3.43 10^6/uL (4.20-5.40); Red Cell Dist. Width 12.5 % (11.5-14.5); White Blood Cell Count 18.4 10^3/uL (4.8-10.8)
[2024-02-03 07:51] LABS: Blood Urea Nitrogen 19 mg/dl (7-17); Calcium 9.1 mg/dl (8.4-10.2); Carbon Dioxide 28 mmol/L (22-30); Chloride 95 mmol/L (98-107); Estimated Creatinine Clearance 37 ml/min; Glucose 110 mg/dl (70-99); Potassium 3.9 mmol/L (3.5-5.1); Sodium 137 mmol/L (135-145); eGFR > 60.00
[2024-02-03 07:57] VITALS: BP 154/67
[2024-02-03] MEDS: VISBIOME 1 CAP PO (07:59)
[2024-02-03] MEDS: VIBRAMYCIN 100 MG PO (07:59)
[2024-02-03] MEDS: MIRALAX 17 GRAMS PO (07:59)
[2024-02-03] MEDS: PLAVIX 75 MG PO (07:59)
[2024-02-03] MEDS: TOPROL XL 25 MG PO (07:59)
[2024-02-03] MEDS: KCL 20 MEQ PO (08:00)
[2024-02-03] MEDS: ELIQUIS 2.5 MG PO (08:00)
[2024-02-03] MEDS: ALDACTONE 12.5 MG PO (08:00)
[2024-02-03] MEDS: PACERONE 200 MG PO (08:00)
[2024-02-03] MEDS: LASIX 40 MG PO (08:00)
[2024-02-03] MEDS: PEPCID 20 MG PO (08:00)
[2024-02-03] MEDS: MUCINEX 600 MG PO (08:01)
[2024-02-03] MEDS: COSOPT EYE DROPS 1 DROP OPHTH (08:03)
[2024-02-03] MEDS: ALPHAGAN 0.2% EYE DROPS 1 DROP OPHTH (08:04)
--- NOTE | 2024-02-03 09:25 | W.PN.HOSP.TC ---
Today's Communication/Plan
-
Continue to biotics
Discharge to [place] [facility]
Assessment / Plan
Assessment / Plan
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
Assessment/plan:
#Acute hypoxic respiratory insufficiency 2/2 CAP vs bronchitis.
-Leukocytosis improving, remains afebrile.
-Supplemental O2 weaned to 1 L NC.
-Wean as tolerated
-Interstitial edema improved on recent CXR, IR appreciated.
-Weight is down , follow daily weights, I's and O's.
-Continue Ceftriaxone/Doxy, will transition to oral today.
-Blood cx NTD
-Continue bronchodilators, Mucinex
-PT/OT
# UTI
-Urine culture negative.
-Patient on ceftriaxone for pneumonia.
#Afib/flutter with RVR
-Currently on amiodarone 200 mg twice daily.
-Continue Eliquis on Lopressor.
-PVI [place] [address] Bernabe, patient will be reevaluated for another PVI as outpatient.
-Monitor on telemetry, follow QTc.
-Cardiology on board.
#Acute on chronic HFpEF
#Moderate to severe aortic stenosis with moderate MR.
-Echo 01/30 unchanged (EF 55 to 60%, low-flow AAS, mild AR, mild to moderate TR)
-Continue IV Lasix.
-Follow I's and O's, daily weights.
-Repeat echo to reassess EF.
#Hypokalemia
-Resolved s/p 40 mEq KCl, patient takes 20 mEq and KCl daily.
-Monitor and replete.
Non-VT high troponin.
-Peaked at 0.027, Most likely RV strain.
#Mod-Sever
-S/p PPM
#Mild transaminitis
-Hepatocellular injury.
-Consider steatotic liver disease vs NAFLD
-Pt's daughter reports family hx of FLD.
-Abd US negative
-Outpatient GI f/u.
-HepC serology negative.
-Follow LFT.
-GI consult if continues to worsen.
#Constipation
-Bowel regimen with milk of magnesia.
#Hypokalemia
replete and follow
#Glaucoma
#Hx of CVA
#GERD
#HLD
#Anxiety
#Hypothyroidism
TSH WNL
cont home meds
DVT ppx-Eliquis
Code status-Full code - confirmed with patient
Anticipated Discharge: Today
Subjective/Interval History
-
Date of Service: February 03, 2024
Patient was seen and examined today, reports feeling better with minimal cough. She wants to go home. She denies chest pain, abdominal pain, fever or chills.
Objective Data
-
Labs:
Laboratory Results
02/03/24
06:44
WBC 18.4 H
Hgb 12.2
Hct 35.7 L
Plt Count 344
Sodium 137
Potassium 3.9
Chloride 95 L
Carbon Dioxide 28
BUN 19 H
Creatinine 0.9
Glucose 110 H
Calcium 9.1
Vital Signs:
Vital Signs
Temp Pulse Resp BP Pulse Ox
97.9 F 66 18 137/65 98
02/03/24 07:57 02/03/24 07:59 02/03/24 07:57 02/03/24 07:59 02/03/24 07:57
I&O
02/02/24 02/03/24 02/04/24
06:59 06:59 06:59
Intake Total 240 / 240 960 / 960
Balance 240 / 240 960 / 960
Review of Systems
-
History Source: Patient
All other systems: Reviewed and negative
Constitutional: Reports No Symptoms; Denies Fever or Chills
Respiratory: Reports Cough and Trouble Breathing
Cardiac: Reports No Symptoms
Abdomen/GI: Reports No Symptoms; Denies Abdominal Pain, Nausea, Vomiting or Diarrhea
Neuro: Reports No Symptoms; Denies Dizzy, Headache or Lightheadedness
Physical Exam
-
General: No Apparent Distress and Comfortable
HEENT: Normocephalic
Respiratory: Crackles (Bilateral lower lobes), Non Labored Respirations and Other (Respiratory squeaks right upper lobes); Negative Wheezes or Rales
Cardiac: S1/S2, Irregular Rhythm and Tachycardic
GI: Soft, Nontender and Nondistended
Musculoskeletal: No Clubbing, No Cyanosis and No Edema
Skin: Warm
Neuro: Awake, Alert, Oriented and AO x 3
Psych: Calm
Data Reviewed
-
Diagnostic Radiology: Image personally visualized and interpreted, Report Reviewed by me and Discussed with Physician
Ultrasound: Image personally visualized and interpreted, Report Reviewed by me and Discussed with Physician
Labs: Labs Reviewed by me and Discussed with Physician
Old Records: Reviewed
--- NOTE | 2024-02-03 09:33 | W.PN.PUL3 ---
Today's Communication / Plan
-
Antibiotics for total of 5-7 days
Would discharge home on DuoNebs twice daily and prn for shortness of breath/wheezing
Repeat CXR in 4 to 6 weeks to follow-up for pneumonia resolution
Diuresis as per cardiology
Trend LFTs
Sputum culture if able to produce a decent sample
Eliquis
Goal SpO2 >90%; she is saturating 96% on room air, hence no need for ambulatory pulse oximetry
Patient be prepared for discharge to SNF at [facility]. No additional pulmonary recommendations at this time. Pulmonary service will now sign off. Please reconsult if there are any additional questions/concerns, or if patient's respiratory
status deteriorates. Outpatient follow-up will be arranged for full PFTs and follow up imaging.
Assessment
-
Assessment: 83-year-old female non-smoker with a past medical history of A-flutter/A-fib, PMR, hypothyroidism, hypertension, chronic HFpEF, aortic stenosis, hyperlipidemia, history of COVID-19 (04/2021), CVA and spinal compression fracture who
presents with worsening SOB + chest congestion. She also endorsed weakness, fatigue and congestion over the last week. It has been causing her to have difficulty sleeping due to coughing. She apparently had been exposed to a person who was sick
with bronchitis 1 week QUALITY CONTROLLER. She was in A-fib with RVR in the ER and found to have elevated proBNP of 7700. Antibiotics were started and she was admitted to the floor and started on antibiotics with cardiology consulted. CXR and 01/28 showed acute
pulmonary edema and diuretics were changed to IV. An abdominal ultrasound on 01/31 showed a right sided pleural effusion. Pulmonary service now consulted for additional management/recommendations.
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
history of COVID-19 (04/2021), history of CVA, glaucoma, compression fracture of spine
Impression:
#RUL pneumonia with small parapneumonic effusion
#Sepsis due to above without shock
#Transaminitis - improving
#Atrial flutter/A-fib with A-fib with RVR on admission and currently in NSR
#Acute HFpEF exacerbation likely due to arrhythmia above in the setting of sepsis without shock
#Nonreversible symptomatic bradycardia due to SSS s/p dual-chamber PPM (implanted 12/29/2023)
#Abnormal urinalysis suspicious for UTI
#Personal history of COVID-19 (April 2021)
#History of CVA
#Suspected low-flow aortic stenosis (seen on TTE from 01/31/2024)
#Valvular heart disease with mild�moderate TR
Plan:
- Right upper lobe pneumonia seen on initial CXR from 01/29/2024. She has a right-sided pleural effusion which would be expected in the setting of pneumonia and also with acute decompensated heart failure
- Effusion is simple appearing on chest ultrasound and too small to safely tap given risk for complications including pneumothorax + bleeding
- No need to drain at this time
- Continue with diuretics as per cardiology; trend I/O and daily weight
- Continue with antibiotics, currently on ceftriaxone/doxycycline and plan for 5-7 days of antibiotics assuming she continues to clinically improve and remains afebrile for 48 hours prior to stopping
- Legionella + strep pneumoniae urine antigens were both negative
- Patient never submitted a sputum culture
- Continue mucolytics with mucinex
- Maintain SpO2 >90-94% with supplemental O2 and wean as tolerated with ambulatory pulse oximetry prior to discharge
- She will need repeat CXR in 4 to 6 weeks to follow-up her pneumonia resolution and her pleural effusion
- prn nebulized bronchodilators - she is not currently bronchospastic
- She initially had A-fib with RVR with acute decompensated heart failure with elevated proBNP >7000; initially continued on her oral Lasix but then transitioned to IV Lasix on 01/31
- She is now transitioned back to oral Lasix
- Defer diuretics to cardiology
- She just had an echo done on 01/31/2024 showing similar findings compared to prior TTE in October 2023
- Goal HR<110
- Replete electrolytes with K>4, Mg>2
- Trend LFTs
- Incentive spirometer encouraged 10x per hour for at least 4 hrs a day
- Maintain euglycemia with goal BG >100 and <180
- DVT ppx: Eliquis
Patient be prepared for discharge to SNF at [facility]. No additional pulmonary recommendations at this time. Pulmonary service will now sign off. Thank you for allowing us to be involved in the care of this patient. Please reconsult if
there are any additional questions/concerns, or if patient's respiratory status deteriorates. Outpatient follow-up will be arranged for full PFTs and follow up imaging.
Data:
CXR 01/29/2024: Progressive interstitial opacity in the right upper lobe, likely pneumonia. Recommend follow-up after conservative therapy to assess for complete resolution.
CXR 02/02/2024: Interval improvement in interstitial process, suggesting improving interstitial edema; Persistent hazy opacity in the right upper lobe could represent residual asymmetric edema, though superimposed pneumonia cannot be excluded.
Continued follow-up recommended.
Chest US 02/02/2024: Trace LEFT pleural effusion. Amount of fluid present not sufficient for safe thoracentesis.
TTE 01/31/2024:
Technically difficult study.
Normal left ventricular size and function. Normal regional wall motion. Left
ventricular ejection fraction is 55-60%.
Potential low flow aortic stenosis. Peak/mean gradients across the aortic valve
are 10/5 mmHg with aortic valve area 1.4 cm2. Mild aortic regurgitation.
Mild to moderate tricuspid regurgitation. Estimated pulmonary artery pressure
of 15-20 mmHg
Compared to a previous echo from October 2023, findings are similar.
Total time spent today was 36 minutes for this encounter. Time includes reviewing laboratory test/imaging results, reviewing pertinent medical records, obtaining and reviewing medical history, performing an appropriate exam, ordering medications,
tests and procedures. Time also includes documentation of this encounter, coordinating patient care and communicating with other healthcare professionals. Total time does not include separately billed tests performed on this date of service.
Subjective Data
-
Date of Service:
Date of Service: February 03, 2024
Chief Complaint: Pulmonary Follow Up and Pneumonia Follow Up
Subjective:
Patient seen and evaluated today at bedside. Patient's son, Angel Luis, at bedside. All questions were answered. Patient says her shortness of breath is better. She is currently on 96% on room air, breathing comfortably. She is being prepared for
discharge today. She denies chest pain, CARVALHO, abdominal pain, nausea, fevers or chills.
Review of Systems
General: Other (Negative unless mentioned above)
Objective Data
Data Reviewed
Vital Signs / I&O / Oxygen:
Vital Signs
Temp Pulse Resp BP Pulse Ox
97.7 F 61 18 135/57 98
02/03/24 11:20 02/03/24 11:20 02/03/24 11:20 02/03/24 11:20 02/03/24 11:20
Intake and Output
02/02/24 02/03/24 02/04/24
06:59 06:59 06:59
Intake Total 240 / 240 960 / 960
Balance 240 / 240 960 / 960
SaO2 98
Nasal Cannula flow liters per 2
minute
Physical Exam
General: Respiratory Distress (negative), Comfortable, Chills (negative) and Sweats (negative)
HEENT: Normocephalic and Anicteric
Cardiovascular: S1-S2 and Peripheral Edema (negative)
Respiratory: Wheeze (negative), Crackles (Bilaterally (R >L)), Rhonchi (RUL posteriorly) and Non-Labored Respirations
GI: Soft, Non Distended, Non Tender and Normal Bowel Sounds
Neurology: Awake, Alert and Tremors (negative)
Skin: Warm, Dry, Cyanosis (negative) and Jaundice (negative)
Labs/Micro/Reports
Lab Data
02/03/24 06:44
02/03/24 06:44
Microbiology
01/29/24 10:13 Blood/Venous Blood Culture - Final
No Growth - Final Report
01/29/24 10:13 Blood/Venous Blood Culture - Final
No Growth - Final Report
01/29/24 20:53 Urine Urine Culture - Final
NO GROWTH
--- NOTE | 2024-02-03 10:32 | W.PN.CARDCBS ---
Addendum entered and electronically signed by Rich Avalos MD 02/03/24 11:10:
I saw and examined the patient.
The Machinist Supervisor's note was reviewed and I agree with the note.
Comment: Briefly, 83-year-old woman presenting with hypoxia found to have community-acquired pneumonia as well as decompensated heart failure with preserved ejection fraction and recurrence of atrial fibrillation
Appears euvolemic on exam today
Following several days of IV Lasix has been transitioned to oral dosing
Continue Lasix 40 mg daily and spironolactone 12.5 mg daily on discharge
Largely maintaining sinus rhythm
Decrease amiodarone to 200 mg daily
Continue metoprolol
Eliquis for cardioembolic prophylaxis
Antibiotics and treatment of pneumonia per primary team
Stable cardiac status, we will sign off
Please recall as needed
Original Note:
Today's Communication / Plan
-
P.o. Lasix 40 mg daily
Wean supplemental O2
IS ordered
Blood pressures improved with addition of spironolactone
Follow LFTs. If remain elevated, would decrease amiodarone to 200 mg daily
Will arrange outpatient cardiac follow-up
Impression / Plan
-
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
Impression:
Community-acquired pneumonia/bronchitis
Acute on chronic HFpEF
Recurrent paroxysmal atrial fibrillation after withdrawal of amiodarone
[employer] dual-chamber pacemaker December 29, 2023
Moderate to severe aortic stenosis, dimensionless index 0.3, aortic valve area 0.7 cm2, mild aortic regurgitation
Moderate mitral regurgitation
CAD, presumably nonobstructive by sestamibi study 2015
Right carotid artery stent, greater than 70% stenosis left internal carotid artery suspected high-grade
Right iliac peripheral arterial stenosis
Glaucoma
History of stroke
Hypercholesterolemia
Hypertension
History of giant cell arteritis
Former smoker
Carotid ultrasound May 2023: Greater than 70% stenosis of the left, patent right carotid stent
Lower extremity arterial duplex January 2023: Right MICHELLE 0.57, right TBI 0.38, monophasic throughout, suspected inflow disease with dampened waveforms monophasic pedal flow, left MICHELLE within normal limits, 1.03, TBI 0.4, multiphasic flow through the
popliteal and multiphasic pedal waveforms
Echocardiogram November 26, 2023: Mild LVH, EF 55-60%, indeterminant diastolic function, normal RV, dense mitral annular calcification, moderate mitral regurgitation, aortic stenosis, visually appears at least moderate, peak and mean gradients are 31
and 13 mmHg, aortic valve area 0.7 [id number] mild aortic regurgitation. Dimensionless index is 0.3, normal atria, pulmonary artery systolic pressure 50-55 minutes of mercury. Peak and mean aortic valve gradients and Brianne were 67 and 50 mmHg with
a valve area of 0.6 cm2. Pulmonary artery pressure was normal in March
Lexiscan sestamibi stress test October 2015: Small fixed inferoseptal defect, EF 60%
ECHO 01/31/24: Technically difficult study, EF 55 to 60%, potential low-flow with peak/mean gradients 10/5 mmHg, KONSTANTIN 1.4 cm� (suspect gradients/valve area inaccurate as limited views of aortic valve), mild AR, mild to moderate TR, PAP 15 to 20 mmHg
Plan:
-She has been transitioned to p.o. Lasix 40 mg daily. Creatinine stable
-Blood pressures improved today with addition of spironolactone 12.5 mg daily on 02/01.
-Could consider addition of SGLT2 inhibitor
-CHF education
-Continue treatment of pneumonia/bronchitis per primary service. ordered IS
-Wean supplemental oxygen as able
-Remains in atrially paced rhythm with stable QTc.
-Ordered repeat LFTs. If remain elevated, would plan to decrease amiodarone to 200 mg daily. possibly abx also contributing
-Continue Toprol 25 mg twice daily and Eliquis 2.5 mg twice daily
-Ultimately could be evaluated for repeat PVI as outpatient, had prior P[place] [address] Skyler Bernabe.
-Cont medical therapy for nonMI troponin. no CP
-PT/OT evals
-will arrange OP cardiac follow up
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
Subjective
Date of Service: February 03, 2024
Reports feels breathing is slowly improving
Objective
Labs:
02/03/24 06:44
02/03/24 06:44
Labs
Hgb 12.2 g/dL (12.0-16.0) 02/03/24 06:44
Hct 35.7 % (37.0-47.0) L 02/03/24 06:44
Plt Count 344 10^3/uL (130-400) 02/03/24 06:44
Sodium 137 mmol/L (135-145) 02/03/24 06:44
Potassium 3.9 mmol/L (3.5-5.1) 02/03/24 06:44
BUN 19 mg/dl (7-17) H 02/03/24 06:44
Creatinine 0.9 mg/dL (0.6-1.0) 02/03/24 06:44
Glucose 110 mg/dl (70-99) H 02/03/24 06:44
Vital Signs and I&O:
Vital Signs
Temp Pulse Resp BP Pulse Ox
97.9 F 66 18 137/65 98
02/03/24 07:57 02/03/24 07:59 02/03/24 07:57 02/03/24 07:59 02/03/24 07:57
Vital Signs
Temp Pulse Resp BP Pulse Ox
97.9 F 66 18 137/65 98
02/03/24 07:57 02/03/24 07:59 02/03/24 07:57 02/03/24 07:59 02/03/24 07:57
Intake & Output
02/01/24 02/02/24 02/03/24 02/04/24
07:59 07:59 07:59 07:59
Intake Total 450 / 450 240 / 240 960 / 960
Output Total 1100 / 1100
Balance -650 / -650 240 / 240 960 / 960
Physical Exam
Physical Exam
GEN: No distress, awake, alert, oriented x3. on supp O2. frail appearing
HEENT: supple, anicteric, mmm, eomi
LUNGS: few crackles on R, no wheezes
CV: Reg, S1/S2, 1/6 syst LSB
ABD: soft, BS+, NT/ND
EXT: No cyanosis, clubbing, edema
NEURO: Gross non-focal
SKIN: Warm, pink, dry. No rash
[2024-02-03 10:49] LABS: ALT (SGPT) 89 U/L (0-35); AST (SGOT) 94 U/L (14-36); Albumin 3.2 g/dl (3.5-5.0); Alkaline Phosphatase 110 U/L (38-126); Direct Bilirubin 0.3 mg/dl (0.0-0.4); Total Bilirubin 0.4 mg/dl (0.2-1.3); Total Protein 6.7 g/dl (6.3-8.2)
--- NOTE | 2024-02-03 10:52 | CM ---
Addendum entered by Juany Cabral 02/03/24 14:26:
IMM provided to Crystal earlier today, signed and placed in chart.
Addendum entered by Juany Cabral 02/03/24 14:13:
Still waiting on SNF determination from [facility]. CM to continue to follow.
Original Note:
CM contacted by Resident Tracey; Crystal is ready for discharge to SNF today. Call to [facility] and a bed is available for transfer today pending insurance authorization.
CM contacted [employer] to request SNF authorization for transfer to [facility] today. Spoke with Naina for SNF request with Reference# [id number]. Records faxed to [phone].
Plan: CM to follow for transfer to [facility]. Await SNF authorization.
[2024-02-03 11:20] VITALS: BP 135/57
[2024-02-03] MEDS: ROCEPHIN 1000 MG IV (11:20)
[2024-02-03] MEDS: STERILE WATER FOR INJECTION 10 ML IV (11:21)
--- NOTE | 2024-02-03 13:44 | W.PN.UPDATE ---
Update Note
Progress Note Update
I personally performed a history and physical exam of the patient and discussed management with the resident. I reviewed the resident's note and agree with the documented findings and plan of care HPI/CC except changes in my documentation
83-year-old female admitted with 3 days of progressive weakness and cough
CVS: S1-S2 normal, sm at apex
Chest: CTA
Abdomen: Soft, NT / Bowel sounds present
Extremities: No edema
Echo 01/31/2024-normal LV size and function. EF 55 to 60%. Mild AI. Mild to moderate TR. Pulmonary artery pressure 15 to 20 mmHg.
# Acute hypoxic respiratory insufficiency secondary to community-acquired pneumonia and bronchitis
Continue ceftriaxone doxycycline- change to Cefpodoxime at discharge
COVID-19 influenza PCR negative
Legionella urinary and strep pneumonia urinary antigen negative
Blood culture negative
Wean oxygen as tolerated
Continue mucolytic's and bronchodilators
WBCs improving
Not enough fluid for thoracentesis. Repeat chest x-ray reviewed by me-Improving interstitial edema. Right upper lobe pneumonia
#Constipation resolving.
# Atrial fibrillation with RVR
History of pacemaker for sick sinus syndrome
Patient converted to sinus rhythm
Lopressor to be continued along with Eliquis, amiodarone 200 mg twice daily
Patient to be evaluated for PVI as outpatient.� She had a P[place] [address] Bernabe
# Acute on chronic heart failure with preserved ejection fraction-Continue Lasix ,changed to PO, daily weights with intake output charting.
# Moderate to severe arctic stenosis, Moderate MR
# Mild transaminitis- Chronic� since 2015 . Hep C AB neg. Discussed with daughters re OP GI Follow up need. USS abdomen- NO acute changes
# Hypokalemia-replace and follow
# Hyperlipidemia-continue rosuvastatin
# Hypothyroidism-continue Synthroid 100 mcg
# PAD-right iliac, right carotid artery stent 2019, greater than 70% stenosis left ICA-Continue Plavix and Statin-OP Vascular eval.
# History of Giant Cell Arteritis
# Glaucoma-continue brimonidine, dorzolamide-timolol,Vyzulta
# History of CVA
# GERD
#Ex Smoker
D/W Case management.
D/W RN
D/W daughter Ruth today.
Part of this note was created using voice recognition system. Occasional wrong word or��sound alike� substitutions may have inadvertently occurred due to the inherent limitations of voice recognition software. If noted kindly bring it to my
attention for correction.
[2024-02-03] MEDS: MILK OF MAGNESIA 30 ML PO (14:23)
[2024-02-03 15:00] VITALS: BP 128/74
--- NOTE | 2024-02-03 15:51 | W.DCSUMMARY ---
Discharge Summary
Discharge Data
Date of Admission: 01/29/24
Date of Discharge: 02/03/24
-
Pending Results: No
Hospital Course
Discharging Physician : Fadia Osborn MD ; Maximo Webb MD
Disposition : [facility]
Primary care physician : Juany Thorne
Principal Discharge diagnosis : Acute hypoxic respiratory failure secondary to pneumonia and CHF
Constipation
Atrial fibrillation
CHF
Aortic stenosis, moderate MR, transaminitis
Hyperlipidemia
Hypothyroidism
Peripheral artery disease
Carotid artery disease
History of CVA
GERD
Glaucoma
Hospital Course : 83yo F with Afib on ELiquis, SSS s/p PPM 1 mo ago, moderate-severe , HFpEF, COPD, Hx of CVA with residual R eye vision loss, HDL, anxiety who presented to ED on 01/29/2024 with SOB and generalized fatigue associated with
nonproductive cough, some sinus congestion for 1 week. 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 While in the ED, she was found to have A-fib with RVR, mildly elevated troponin, she was also septic with
severe leukocytosis and evidence of right upper lobe infiltrate on CXR. She was treated with broad-spectrum antibiotics and admitted for further evaluation and management.
While in the hospital, patient was seen in consultation with cardiology and pulmonology, and was monitored on telemetry. She was also started on IV Lasix, her Eliquis was continued, Lopressor dose was increased and her troponin was trended. She
was later found to have UTI, hypokalemia, constipation and transaminitis. Her abdominal ultrasound reported right pleural effusion which was further evaluated by IR team and deemed not enough for safe thoracentesis.
Patient has a total 5 days stay in the hospital, her WBC count continued to continued to improve while on antibiotics, potassium was repleted, urine and blood cultures were negative, constipation resolved with milk of magnesia, and she received
daily bronchodilators with Mucinex. She was also evaluated with echocardiography which reported no changes from the previous echocardiography. She was subsequently weaned off oxygen and is currently saturating at 98% on room air.
Condition on discharge: Awake, alert and oriented x3, answer question properly, speech clear and comprehensive, continent of the bowel and bladder, ambulate with minimal assistance, and is medically stable for [facility] rehab.
Important imaging findings :
CXR 01/29/2024:
Progressive interstitial opacity in the right upper lobe, likely pneumonia. Recommend follow-up after conservative therapy to assess for complete resolution.
Progressive changes are noted. This includes progressive diffuse bilateral interstitial prominence and subtle acinar nodularity, raising possibility of edema which may be on the basis of cardiogenic or noncardiogenic etiology depending on the
clinical scenario. No radiographically demonstrable pleural effusion. Stable mild cardiomegaly. No pneumothorax.
Renal ultrasound 01/30/2024:
No hydronephrosis, bilaterally.
On the left, A few tiny echogenic foci are demonstrated which are nonspecific, and could represent reflective interface. Possibility of tiny calculi would be difficult to exclude with certainty.
CXR 02/02/2024:
Interval improvement in interstitial process, suggesting improving interstitial edema.
Persistent hazy opacity in the right upper lobe could represent residual asymmetric edema, though superimposed pneumonia cannot be excluded. Continued follow-up recommended.
Small left pleural effusion.
Discharge Plan
-
Patient Disposition: Jail/SNF
Discharge Diagnosis/Procedures: Acute hypoxic respiratory failure secondary to pneumonia and CHF
Constipation
Atrial fibrillation
CHF
Aortic stenosis, moderate MR, transaminitis
Hyperlipidemia
Hypothyroidism
Peripheral artery disease
Carotid artery disease
History of CVA
GERD
Glaucoma
Diet: 2 Gram Sodium
Activity: With assistance and As tolerated
Driving Restrictions: No driving
Blood Work: CMP in 1 week, cbc 1 week. Thyroid function tests 2 months
Others Tests: chest X ray 4 weeks
Other Services: PT and OT
Specialty Instructions: Weigh Daily- Call MD for wt gain/loss 3 lbs overnight/5 lbs in 1 week
Activity Restrictions/Additional Instructions:
GI doctor Follow-up for workup of abnormal liver tests. Oxygen 2 L. Wean as tolerated.
Instructions: *[facility] Heart Failure Instructions
Referrals:
Petty Quintero PA-C [Specified Professional Personl] - 02/22/24 12:40 pm (Your cardiology appointment has changed. You are scheduled to see Dr. Hansen's Petty SHAW at the [place] office 02/22/24. Please call with questions. )
Juany Thorne MD [Family Provider] -
Shun Mallory MD [Active] - (for Carotid stenosis)
Nabil Miller DO [Active] - (LFT)
Additional Discharge Medication Instructions: Pepcid and Eliquis dose reduced. Metoprolol increased
Prescriptions:
New
ipratropium-albuterol 0.5 mg-3 mg(2.5 mg base)/3 mL Solution For Nebulization
3 ml inhalation R Q4HPRN PRN (Reason: shortness of breath) Qty: 0 0RF
polyethylene glycol 3350 [HealthyLax] 17 gram Powder In Packet
17 g PO DAILY Qty: 0 0RF
amiodarone 200 mg Tablet
200 mg PO DAILY Qty: 0 0RF
sennosides-docusate sodium 8.6-50 mg Tablet
1 tab PO BIDPRN PRN (Reason: constipation) Qty: 0 0RF
spironolactone 25 mg Tablet
12.5 mg PO DAILY Qty: 0 0RF
guaifenesin 600 mg Tablet Extended Release 12hr
600 mg PO Q12 Qty: 0 0RF
cefpodoxime 200 mg tablet
200 mg PO BID Qty: 10 0RF
Continued
rosuvastatin 10 MG tablet
20 mg PO HS
clopidogrel 75 mg Tablet
75 mg PO DAILY
levothyroxine [Synthroid] 112 mcg Tablet
112 mcg PO DAILY AT 0700
potassium chloride [Klor-Con M20] 20 mEq tablet,ER particles/crystals
20 meq PO DAILY
acetaminophen 650 mg Tablet Extended Release
650 mg PO Q8HPRN PRN (Reason: moderate pain)
Multivitamin 50 Plus Tablet
1 tab PO HS
magnesium chloride 70 mg Tablet,Delayed Release (Dr/Ec)
70 mg PO HS
Mage 15 billion cell -15 mg Capsule,Delayed Release(Dr/Ec)
1 cap PO DAILY
brimonidine 0.2 % Drops
1 drp RIGHT EYE BID
dorzolamide-timolol 22.3-6.8 mg/mL Drops
1 drp RIGHT EYE BID
Vyzulta
1 drp RIGHT EYE HS
Rx Instructions:
0.024%
furosemide 40 mg Tablet
40 mg PO DAILY Qty: 30 0RF
Changed
famotidine 20 MG tablet
20 mg PO DAILY Qty: 0 0RF
metoprolol succinate 25 mg tablet extended release 24 hr
25 mg PO BID Qty: 0 0RF
apixaban 5 mg Tablet
2.5 mg PO BID Qty: 0 0RF
Discharge Orders:
Discharge Patient (As Directed); Ordered 02/03/24
Ordered By: Maximo Webb
Discharge Date and Time
Print Language: UKRAINIAN
--- NOTE | 2024-02-03 16:27 | CM ---
SNF Auth is approved. The Auth # has not populated yet, but I have a reference number [id number] for dates of service 02/02-02/06 with NRD 02/07/2024 via fax to [phone]; attn: Beatris Cid.
[facility] able to accept admission this evening. Pt's son Angel Luis is going to transport.
[facility] Report:[phone]
[facility]
== END 2024-02-03 18:40 | DRG 193 ==
LOC: 4 EAST ACU 12:38
PROVIDERS: Nurse Practitioner Gerontology; Physician Assistant; Registered Nurse; Student in an Organized Health Care Education/Training Program; ADMITTING PHYSICIAN Internal Medicine; ATTENDING PHYSICIAN Hospitalist; CONSULT PHYSICIAN Internal Medicine Cardiovascular Disease; CONSULT PHYSICIAN Internal Medicine Critical Care Medicine; EMERGENCY PHYSICIAN Emergency Medicine; FAMILY PHYSICIAN Internal Medicine
DX: J18.9 Pneumonia, unspecified organism (principal); I50.33 Acute on chronic diastolic (congestive) heart failure; J44.0 Chronic obstructive pulmonary disease with (acute) lower respiratory infection; I48.92 Unspecified atrial flutter; E03.9 Hypothyroidism, unspecified; E78.2 Mixed hyperlipidemia; E87.6 Hypokalemia; F32.A Depression, unspecified; H40.9 Unspecified glaucoma; I69.398 Other sequelae of cerebral infarction; H54.61 Unqualified visual loss, right eye, normal vision left eye; I11.0 Hypertensive heart disease with heart failure; I49.5 Sick sinus syndrome; I48.0 Paroxysmal atrial fibrillation; I25.10 Atherosclerotic heart disease of native coronary artery without angina pectoris; I35.0 Nonrheumatic aortic (valve) stenosis; I08.0 Rheumatic disorders of both mitral and aortic valves; K21.9 Gastro-esophageal reflux disease without esophagitis; R09.02 Hypoxemia; R74.01 Elevation of levels of liver transaminase levels; Z87.891 Personal history of nicotine dependence; Z88.0 Allergy status to penicillin; Z79.02 Long term (current) use of antithrombotics/antiplatelets; Z79.01 Long term (current) use of anticoagulants; Z79.890 Hormone replacement therapy; Z79.899 Other long term (current) drug therapy; Z95.828 Presence of other vascular implants and grafts; Z20.822 Contact with and (suspected) exposure to COVID-19; Z95.0 Presence of cardiac pacemaker; Z95.5 Presence of coronary angioplasty implant and graft; Z86.16 Personal history of COVID-19; Z96.653 Presence of artificial knee joint, bilateral
CPT/HCPCS: 93308; 36600; 71045; 71046; 76604; 76700; 76770; 80053; 81003; 81015; 82248; 82550; 82607; 82805; 82962; 83605; 83615; 83735; 83880; 84443; 84484; 85025; 85027; 86803; 87040; 87086; 87449; 87502; 87811; 87899; 93005; 93321; 93325; 94640; 96365; 96375; 97163; 97166; 97530; 97535; 99285

== ENCOUNTER → 2024-02-07 11:18 | Outpatient (REF) | payer OTHER, MEDICARE, SELFPAY ==
[2024-02-07 12:31] LABS: ALT (SGPT) 58 U/L (0-35); AST (SGOT) 48 U/L (14-36); Albumin 3.2 g/dl (3.5-5.0); Alkaline Phosphatase 107 U/L (38-126); Blood Urea Nitrogen 17 mg/dl (7-17); Calcium 8.6 mg/dl (8.4-10.2); Carbon Dioxide 25 mmol/L (22-30); Chloride 104 mmol/L (98-107); Glucose 80 mg/dl (70-99); Sodium 141 mmol/L (135-145); Total Bilirubin 0.4 mg/dl (0.2-1.3); Total Protein 7.2 g/dl (6.3-8.2); eGFR > 60.00
[2024-02-07 12:34] LABS: Hematocrit 38.6 % (37.0-47.0); Mean Corp Hgb Conc. 33.7 g/dL (33.0-37.0); Mean Corpuscular Hgb 35.3 pg (27.0-31.0); Mean Corpuscular Volume 104.9 fL (81.0-99.0); Mean Platelet Volume 11.1 fL (7.4-10.4); Platelet Count 334 10^3/uL (130-400); Red Blood Cell Count 3.68 10^6/uL (4.20-5.40); Red Cell Dist. Width 12.9 % (11.5-14.5); White Blood Cell Count 13.4 10^3/uL (4.8-10.8)
== END ==
LOC: OLABP 11:18
PROVIDERS: ATTENDING PHYSICIAN Family Medicine
DX: J18.9 Pneumonia, unspecified organism (principal); J20.9 Acute bronchitis, unspecified; I50.32 Chronic diastolic (congestive) heart failure; I48.91 Unspecified atrial fibrillation; J44.9 Chronic obstructive pulmonary disease, unspecified; I73.9 Peripheral vascular disease, unspecified; Z95.0 Presence of cardiac pacemaker; I35.0 Nonrheumatic aortic (valve) stenosis; Z86.73 Personal history of transient ischemic attack (TIA), and cerebral infarction without residual deficits; I34.0 Nonrheumatic mitral (valve) insufficiency
CPT/HCPCS: 36415; 80053; 85027

== ENCOUNTER → 2024-02-09 08:42 | Outpatient (REF) | payer MEDICARE, SELFPAY | LOC: RAD 08:42 | PROVIDERS: ATTENDING PHYSICIAN Surgery Vascular Surgery | DX: I73.9 Peripheral vascular disease, unspecified (principal); I77.9 Disorder of arteries and arterioles, unspecified | CPT/HCPCS: 93880; 93922; 93925 ==

== ENCOUNTER → 2024-02-18 15:36 | Outpatient (REF) | payer OTHER, MEDICARE, SELFPAY ==
[2024-02-18 15:57] LABS: Blood Urea Nitrogen 16 mg/dl (7-17); Calcium 9.3 mg/dl (8.4-10.2); Carbon Dioxide 19 mmol/L (22-30); Chloride 106 mmol/L (98-107); Glucose 95 mg/dl (70-99); Potassium 4.8 mmol/L (3.5-5.1); Sodium 140 mmol/L (135-145); eGFR > 60.00
[2024-02-18 16:13] LABS: % Basophils 1.1 % (0-2); % Eosinophils 1.5 % (0-6); % Immature Granulocytes 1.2 % (0-0.5); % Lymphocytes 21.5 % (20.5-51.1); % Monocytes 8.9 % (1.7-9.3); % Neutrophils 65.8 % (42.2-75.2); Absolute Basophils 0.1 10^3/uL (0-0.2); Absolute Eosinophils 0.1 10^3/uL (0-0.7); Absolute Immature Granulocytes 0.1 10^3/uL (0-0.05); Absolute Monocytes 0.8 10^3/uL (0.1-0.6); Hematocrit 38.7 % (37.0-47.0); Hemoglobin 13.7 g/dL (12.0-16.0); Mean Corp Hgb Conc. 35.4 g/dL (33.0-37.0); Mean Corpuscular Hgb 36.1 pg (27.0-31.0); Mean Corpuscular Volume 101.8 fL (81.0-99.0); Mean Platelet Volume 12.9 fL (7.4-10.4); Nucleated Red Blood Cells % 0 %; Platelet Count 238 10^3/uL (130-400); Red Cell Dist. Width 13.6 % (11.5-14.5); White Blood Cell Count 9.1 10^3/uL (4.8-10.8)
== END ==
LOC: OLABP 15:36
PROVIDERS: ATTENDING PHYSICIAN Family Medicine
DX: J18.9 Pneumonia, unspecified organism (principal); J20.9 Acute bronchitis, unspecified; I50.32 Chronic diastolic (congestive) heart failure; I48.91 Unspecified atrial fibrillation; J44.9 Chronic obstructive pulmonary disease, unspecified; Z95.0 Presence of cardiac pacemaker; I35.0 Nonrheumatic aortic (valve) stenosis; I34.0 Nonrheumatic mitral (valve) insufficiency; E87.6 Hypokalemia; E78.5 Hyperlipidemia, unspecified; I73.9 Peripheral vascular disease, unspecified; Z86.73 Personal history of transient ischemic attack (TIA), and cerebral infarction without residual deficits; K21.9 Gastro-esophageal reflux disease without esophagitis
CPT/HCPCS: 36415; 80048; 85025

== ENCOUNTER 2024-05-01 05:59 | Day surgery (SDC) | payer MEDICARE, SELFPAY ==
--- NOTE | 2024-04-26 09:19 | HPS.HSE ---
Family Physician
-
Family Physician: Juany Thorne
Chief Complaint
-
Paroxysmal atrial fibrillation.
History of Present Illness
The patient is an 83 year old female presenting today for paroxysmal atrial fibrillation. She reports intermittent palpitations and progressively worsening dyspnea likely secondary to her arrhythmia. She previously underwent multiple
cardioversions and pulmonary vein isolation in 2019 for this diagnosis. She did have a dual chamber pacemaker inserted in December 2023 secondary to sick sinus syndrome. Her most recent pacer interrogation revealed an atrial fibrillation burden of
75%. She is on current pharmacological therapy with Amiodarone and Metoprolol Succinate. Unfortunately, she does not tolerate Amiodarone well. She reports nausea, fatigue, and feeling overall poorly while on this medication. She is compliant with
Eliquis for oral anticoagulation due to a CHADS-VASc of 6. She is interested in pursuing pulmonary vein isolation again for further arrhythmia management given her medical therapy has been suboptimal in maintaining normal sinus rhythm. She denies
any current complaints today such as chest pain, shortness of breath at rest, diarrhea, lightheadedness, dizziness, sore throat, or fever.
Medical History
Past Medical History
Past Medical History: Reports Other
Additional Past Medical History:
1. Paroxysmal atrial fibrillation, status post cardioversion x3 and pulmonary vein isolation 2019; pharmacological therapy with Amiodarone and Metoprolol Succinate, oral anticoagulation with Eliquis.
2. Atrial flutter.
3. Hypertension.
4. Hyperlipidemia.
5. Coronary artery disease, status post PCI with left circumflex stent 2018; on Plavix.
6. Bilateral carotid artery stenosis, status post right carotid artery stent 2018; greater than 70% stenosis left internal carotid artery.
7. Peripheral arterial disease with right iliac peripheral arterial stenosis, treated conservatively.
8. Congestive heart failure, preserved ejection fraction.
9. Cardiomyopathy, recovered.
10. Sick sinus syndrome, status post dual chamber pacemaker insertion 12/2023.
11. Moderate-severe aortic stenosis.
12. Moderate-severe mitral regurgitation.
13. Mild aortic regurgitation.
14. Mild-moderate tricuspid regurgitation.
15. COPD with chronic cough.
16. Reported mild obstructive sleep apnea, no device required.
17. Acute respiratory failure secondary to pneumonia and acute on chronic heart failure 01/2024.
18. Acute kidney injury in the setting of dehydration.
19. GERD.
20. Nephrolithiasis.
21. Fatty liver disease.
22. Chronic constipation.
23. 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
24. Frequent headaches.
25. Balance difficulties.
26. History of temporal arteritis, status post steroid therapy.
27. Polymyalgia rheumatica.
28. Compression fraction of T8 and T9 vertebrae, treated conservatively.
29. Multilevel degenerative disc disease.
30. Osteoarthritis, status post bilateral total knee arthroplasty.
31. Hypothyroidism.
32. History of recurrent UTIs.
33. Chronic microscopic hematuria.
34. Glaucoma.
35. Anxiety.
36. Hearing impairment.
37. Mild hypermagnesemia.
38. Remote history of tobacco abuse.
Past Surgical History: Reports Other
Additional Past Surgical History:
1. Pulmonary vein isolation.
2. Cardioversion x3.
3. PCI with left circumflex stent.
4. Right carotid artery stent.
5. Temporal artery biopsy.
6. Bilateral total knee arthroplasty.
7. Tonsillectomy.
8. Bilateral cataract extraction.
Social History
Tobacco: Former Smoker (She is a former 1 and 1/2 pack per day cigarette smoker who quit tobacco altogether 40 year ago. )
Alcohol: None
Personal:
Living: Other (She lives with her in a bilevel home. )
Family History
Family History: Not pertinent
Allergies / Home Medications
Allergy/Medication List:
Home medications:
1. Acetaminophen 650 mg p.o. every 8 hours as needed.
2. Amiodarone 100 mg p.o. at bedtime.
3. Apixaban 5 mg p.o. twice a day.
4. Brimonidine 1 drop right eye twice a day.
5. Clopidogrel 75 mg p.o. daily.
6. Dorzolamide-timolol 1 drop right eye twice a day.
7. Famotidine 20 mg p.o. twice a day.
8. Furosemide 40 mg p.o. daily.
9. Guaifenesin 600 mg p.o. at bedtime.
10. Ipratropium-albuterol 3 ml inhaled every 4 hours as needed.
11. Latanoprost 1 drop ophthalmic every evening.
12. Levothyroxine 112 mcg p.o. daily.
13. Mage probiotic 1 capsule p.o. daily.
14. Magnesium chloride 70 mg p.o. at bedtime.
15. Metoprolol Succinate 25 mg p.o. daily.
16. Multivitamin 1 tablet p.o. daily.
17. Miralax 17 gram p.o. daily as needed.
18. Potassium chloride 20 meq p.o. daily.
19. Rosuvastatin 20 mg p.o. at bedtime.
20. Spironolactone 12.5 mg p.o. daily.
Allergies: Ampicillin. Penicillin.
Review of Systems
-
A 12 point ROS was completed and negative except as noted: Yes
Physical Exam
Vital Signs
Blood pressure 98/60. Heart rate 72. Respirations 18. Pulse ox 100% on room air.
Height 5 feet, 1.5 inches. Weight 53.3 kg. BMI 21.8.
Physical Exam
General: Well Developed, Well Nourished and No Apparent Distress
HEENT: NormoCephalic, Moist mucous membranes, Atraumatic, Hearing Impaired and Other (Right eye visual loss. )
Respiratory: Clear
Cardiac: Irregular Rhythm and Other (Pacemaker site intact. )
GI: Soft, Non Tender and Non Distended
Musculoskeletal: No Edema and Other (The patient presents in a wheelchair.)
Skin: Warm and Dry (Extremely dry upper and lower extremities noted. )
Neuro: AO x 3 and Nonfocal/grossly intact
Laboratory Results
-
DIAGNOSTIC STUDIES as of 04/26/2024: White blood cell count 9.1. Hemoglobin 13.5. Platelet count 205,000. PT 21.9. INR 1.86. Sodium 138. Potassium 4.6. BUN 28. Creatinine 1.1. Glucose 103. Calcium 9.4. Magnesium 2.5. AST 40. ALT 29. Albumin 4.3.
Type and screen O negative.
EKG 04/26/2024: Atrial paced rhythm with prolonged AV conduction. Left ventricular hypertrophy with repolarization abnormality. Prolonged QT.
Echocardiogram 01/30/2025: Technically difficult study. Normal left ventricular size and function. Normal regional wall motion. Left ventricular ejection fraction is 55-60%. Potential low flow aortic stenosis. Peak/mean gradients across the aortic
valve are 10/5 mmHg with aortic valve area 1.4 cm2. Mild aortic regurgitation. Mild to moderate tricuspid regurgitation. Estimated pulmonary artery pressure of 15-20 mmHg. Compared to a previous echo from October 2023, findings are similar.
Impression/Plan
-
IMPRESSION/PLAN:
1. Paroxysmal atrial fibrillation: The patient is in need of pulmonary vein isolation with Dr. Tio Bernabe on 05/01/2024. The benefits and risks of the procedure have been explained to the patient. The patient understands these risks and
wishes to proceed. She will not be required to undergo a pre-procedural transesophageal echocardiogram as she has been compliant with her home oral anticoagulation. She is aware to continue Eliquis uninterrupted prior to her procedure. She will take
no medications the morning of her ablation.
2. Acute kidney injury in the setting of dehydration: The patient does not have a prior history of chronic kidney disease per her reports or per documented labs as recent as January 2024. She was visibly dehydrated during pre-operative exam with
dry skin of her extremities and low blood pressure noted. Dehydration likely secondary to constant nausea associated with Amiodarone use. Result of BUN/creatinine discussed with Dr. Bernabe pre-operatively. The patient will hydrate more over the
next few days and hold her Furosemide starting 04/28/2024. A repeat BUN/Creatinine will be drawn the morning of her procedure. This information was relayed to the patient through phone call 04/27/2024 and she voiced understanding.
[2024-04-26 12:03] VITALS: BMI 21.8
[2024-04-26 13:20] LABS: % Basophils 0.8 % (0-2); % Eosinophils 2.1 % (0-6); % Immature Granulocytes 0.3 % (0-0.5); % Lymphocytes 14.6 % (20.5-51.1); % Monocytes 9.9 % (1.7-9.3); % Neutrophils 72.3 % (42.2-75.2); Absolute Basophils 0.1 10^3/uL (0-0.2); Absolute Eosinophils 0.2 10^3/uL (0-0.7); Absolute Lymphocytes 1.3 10^3/uL (1.2-3.4); Absolute Monocytes 0.9 10^3/uL (0.1-0.6); Absolute Neutrophils 6.6 10^3/uL (1.4-6.5); Hematocrit 39.7 % (37.0-47.0); Hemoglobin 13.5 g/dL (12.0-16.0); Mean Corpuscular Volume 105.9 fL (81.0-99.0); Nucleated Red Blood Cells % 0 %; Platelet Count 205 10^3/uL (130-400); Red Blood Cell Count 3.75 10^6/uL (4.20-5.40); Red Cell Dist. Width 12.9 % (11.5-14.5); White Blood Cell Count 9.1 10^3/uL (4.8-10.8)
[2024-04-26 13:34] LABS: INR 1.86; PT 21.9 Sec (11.4-14.6)
[2024-04-26 14:45] LABS: ALT (SGPT) 29 U/L (0-35); AST (SGOT) 40 U/L (14-36); Albumin 4.3 g/dl (3.5-5.0); Alkaline Phosphatase 63 U/L (38-126); Blood Urea Nitrogen 28 mg/dl (7-17); Calcium 9.4 mg/dl (8.4-10.2); Carbon Dioxide 24 mmol/L (22-30); Chloride 101 mmol/L (98-107); Estimated Creatinine Clearance 29 ml/min; Glucose 103 mg/dl (70-99); Magnesium 2.5 mg/dl (1.6-2.3); Potassium 4.6 mmol/L (3.5-5.1); Sodium 138 mmol/L (135-145); Total Bilirubin 0.1 mg/dl (0.2-1.3); Total Protein 7.4 g/dl (6.3-8.2); eGFR 49.55
[2024-05-01] VITALS (17 sets, daily range): BP systolic 90–179; BP diastolic 50–86; BMI 21.8; BMI 22.2
[2024-05-01 07:05] LABS: Blood Urea Nitrogen 22 mg/dl (7-17); Calcium 9.4 mg/dl (8.4-10.2); Carbon Dioxide 21 mmol/L (22-30); Chloride 104 mmol/L (98-107); Estimated Creatinine Clearance 36 ml/min; Glucose 108 mg/dl (70-99); Potassium 4.2 mmol/L (3.5-5.1); Sodium 140 mmol/L (135-145); eGFR > 60.00
[2024-05-01] MEDS: NSS 500 IV (07:19)
--- NOTE | 2024-05-01 07:43 | ITS.CL.ABL ---
Senior Tax Specialist - Ablation
Ablation
Procedure Report:
ELECTROPHYSIOLOGIC STUDY AND POSSIBLE ABLATION
DATE: 05/01/24
Primary Care: Dr Juany Thorne
Primary Supervisor Laundry: Dr Kalia Hansen
Portable Grinding Machine Operator (present/active through the entirety of the procedure): Tio Bernabe M.D.
INDICATION:
Symptomatic Atrial Fibrillation.
Persistent, recurrent after prior ablation July 18, 2018
HISTORY: See H and P.
Symptomatic AF, poorly controlled with attempted medical therapy including amiodarone.
Pacemaker diagnostics finds 75% burden of atrial fibrillation/atrial tachycardia.
She also has moderate to severe aortic stenosis.
Sick sinus syndrome with prior implantation of Medtronic dual-chamber permanent pacemaker (conduction system/left bundle branch pacing, 12-29-23)
HAS-BLED: 3
Age
Antiplatelet Therapy
Renal Dysfunction
CHADSVASc: 6
CHF, NYHA Class 2, HFpEF
HTN
Age 78 yrs
Vascular Dz
Female Gender
PRESENTING RHYTHM: SR
HISTORY: See H and P.
Symptomatic AF, poorly controlled with attempted medical therapy.
ANTIARRHYTHMIC DRUG: Amiodarone 100 mg daily
ANTICOAGULATION: Apixaban 5 mg twice daily
'TIME-OUT': called and confirmed.
SEDATION/ANESTHESIA: provided via the anesthesia department using general anesthesia.
PROCEDURE:
Ultrasound Guidance with real-time visualization of needle insertion and vessel patency performed by or for femoral venous Vascular Access. Images were taken and saved for the patient's permanent record. Imaging findings typical femoral venous
anatomy. Direct visualization of needle puncture into the femoral vein was observed and recorded.
A decapolar CS catheter was placed within the CS for mapping and pacing.
The intracardiac ultrasound catheter was positioned in the RA for continuous intracardiac ultrasound imaging.
Heparin bolus and infusion to target ACT at 300 -350 seconds was administered. Transseptal puncture was performed. This entailed advancing a sheath with dilator into the superior vena cava and withdrawing both (monitoring intracardiac ultrasound,
fluoroscopy and tip pressure) with the tip oriented toward the atrial septum. The fossa ovalis was engaged (indicated by sudden displacement of the sheath tip as well as tenting of the fossa seen on intracardiac ultrasound).
Transseptal puncture was performed. Left atrial catheter position was confirmed by echocardiographic imaging, pressure monitoring (LA mean pressure 11 mm Hg) and fluoroscopy. The sheath was advanced over the dilator and positioned in the left
atrium.
The [employer] multipolar mapping/ablation Sphere-9 catheter was positioned through the transseptal sheath for high density mapping.
Geometry and voltage mapping was performed using the [employer] mapping system for three-dimensional electroanatomical mapping.
Catheter positioning was guided and confirmed using both I.C.E. and fluoroscopy.
Mapping finds near isolation of each of the pulmonary veins (LSPV, LIPV, RSPV, RIPV) with minimal reconnection at the right inferior pulmonary vein towards its posterior inferior quadrant. There is a paucity of electrograms at the posterior wall of
the left atrium except for a cord or at the mid posterior wall and at the floor of the left atrium as well as the roof of the left atrium posteriorly.
Ablation strategy consisted of reisolation of the right inferior pulmonary vein as well as full electrical isolation of the posterior wall of the left atrium.
Programmed electrical stimulation failed to induce any atrial fibrillation. Programmed electrical stimulation did not induce an atrial tachycardia at 410 ms. Entrainment from the distal coronary sinus catheter as well as the proximal coronary
sinus electrodes are both outside the circuit. Pacing from the lateral wall of the left atrium is also outside the circuit. High density electroanatomical mapping was performed but was limited by a paucity of clean electrograms in the left atrium,
there is either no mappable electrograms or very low amplitude electrograms. Entrainment mapping was also attempted but capture in the left atrium along the proposed circuit could not be reliably accomplished. Activation mapping suggested a Micra
reentrant circuit at the anterior left atrium just outside the ostium of the left atrial appendage. This area was targeted with pulsed electric field ablation. This slowed the tachycardia to 450 ms and then the tachycardia terminated. Sinus
rhythm (atrial pacing) with PACs in a bigeminal pattern was then present. Mapping suggested a right atrial origin. The Affera mapping catheter was withdrawn from the left atrium and the right atrium was extensively mapped. During mapping any
regular atrial tachycardia between 390 and 420 ms was then observed. During mapping this terminated to sinus rhythm. Further attempts at arrhythmia induction resulted only in nonsustained irregular atrial tachycardia which could not be effectively
mapped.
At the end of the study the patient is in sinus rhythm with no PACs.
I.C.E. :
Pre-Ablation Post-Ablation
LVEF: 55 % 55 %
WMA: none none
Pericardial effusion: none none
At the end of the study fluoroscopic imaging finds no change in the appearance of the right atrial and right ventricular pacing lead.
Interrogation of the dual-chamber permanent pacemaker found normal function of the pacemaker and lead system.
Reprogramming of the pacemaker was performed, reprogramming from AAIR/DDDR mode to DDDR, atrial preference tracing was programmed on and AV delays were shortened to better allow conduction system pacing. Furthermore I programmed on atrial
tachycardia interventions.
Atrial impedance 475 ohms, RV impedance 646 ohms, atrial capture threshold 1.125 V at 0.4 ms and right ventricular capture threshold 0.875 V at 0.4 ms. Atrial sensed amplitude is 1.4 mV and sensed RV amplitude is 14.4 mV.
The final programming is DDDR 70-130 ppm.
COMPLICATIONS:
None
SUMMARY:
- Mapping and ablation to isolate the PVs
- Additional AF ablation set after PVI (LA post wall ablation).
- Mapping and ablation of second tachycardia (LA micro-reentrant tachycardia)
- Interrogation and reprogramming of dual-chamber permanent pacemaker
- 3-D Electroanatomical Mapping
- Intracardiac Ultrasound
- Ultrasound guidance for vascular access
Post ablation, I discussed today's findings and results with the patient's and daughter.
RECOMMENDATIONS:
- Observe in monitored bed.
- Maintain oral anticoagulation. Given her age and weight, will reduce apixaban to 2.5 mg twice daily
- Discontinue amiodarone. She is experience marked fatigue which could be related to her recurrent arrhythmias or amiodarone. Will trial her off of amiodarone post ablation
- If she has recurrence of high burden and symptomatic atrial arrhythmias, we could consider resumption of antiarrhythmic drug, perhaps something other than amiodarone (dofetilide or sotalol)
- She has an office visit scheduled with Dr. Hansen May 11, 2024.
Copy to:
Dr Juany Thorne
Dr Kalia Hansne
[2024-05-01 09:02] LABS: ACT-LR - POC 392 Seconds (116-155)
[2024-05-01 09:23] LABS: ACT-LR - POC 313 Seconds (116-155)
[2024-05-01 09:42] LABS: ACT-LR - POC 356 Seconds (116-155)
--- NOTE | 2024-05-01 12:36 | PTCARENOTE ---
Rec'd pt from [facility]. R groin dsg is c/d/i. Fig 8 sutures intact. No hematoma/bleeding noted. Activity restrictions reviewed w/ pt. Verbalizes understanding. No complaints at this time. Currently in bed; call rose w/in reach.
[2024-05-01] MEDS: TYLENOL 650 MG PO (13:10)
--- NOTE | 2024-05-01 14:57 | CM ---
Chart reviewed. Patient was lying in bed with daughter at bedside. Patient is independent of ADLS, lives with her in a bilevel house, [address], ambulates with a rollator, not current with VN but has used [facility] in the best. Patient also stay
at [facility] in the past. Plan is for the patient to return home. CM to follow
[2024-05-01] MEDS: XALATAN OPHTHALMIC SOLUTION 1 DROP RIGHT EYE (17:10)
[2024-05-01] MEDS: ELIQUIS 2.5 MG PO (20:01)
[2024-05-01] MEDS: COSOPT EYE DROPS 1 DROP RIGHT EYE (20:01)
[2024-05-01] MEDS: ALPHAGAN 0.2% EYE DROPS 1 DROP RIGHT EYE (20:01)
[2024-05-01] MEDS: PEPCID 20 MG PO (20:01)
--- NOTE | 2024-05-01 20:50 | PTCARENOTE ---
pt received at change of shift, pt seen and assessed in room. pt aox3, tele reading AV paced. R groin site c/d/i. No complaints of pain at this time. This RN discussed POC, pt verbalizes understanding. Call rose within reach. Continuing to monitor
at this time.
[2024-05-01] MEDS: MUCINEX 600 MG PO (21:11)
[2024-05-01] MEDS: CRESTOR 20 MG PO (21:11)
[2024-05-01] MEDS: MAG-TAB SR 84 MG PO (21:11)
[2024-05-02] MEDS: TYLENOL 650 MG PO (01:01)
[2024-05-02 03:10] VITALS: BP 101/52
[2024-05-02 04:09] VITALS: BMI 21.9
[2024-05-02 04:17] LABS: Hematocrit 32.8 % (37.0-47.0); Hemoglobin 11.4 g/dL (12.0-16.0); Mean Corp Hgb Conc. 34.8 g/dL (33.0-37.0); Mean Corpuscular Hgb 35.6 pg (27.0-31.0); Mean Corpuscular Volume 102.5 fL (81.0-99.0); Mean Platelet Volume 9.8 fL (7.4-10.4); Platelet Count 178 10^3/uL (130-400); White Blood Cell Count 11.1 10^3/uL (4.8-10.8)
[2024-05-02 04:28] LABS: Blood Urea Nitrogen 22 mg/dl (7-17); Carbon Dioxide 16 mmol/L (22-30); Chloride 109 mmol/L (98-107); Estimated Creatinine Clearance 46 ml/min; Glucose 120 mg/dl (70-99); Magnesium 2.3 mg/dl (1.6-2.3); Potassium 4.4 mmol/L (3.5-5.1); Sodium 136 mmol/L (135-145); eGFR > 60.00
[2024-05-02] MEDS: SYNTHROID 112 MCG PO (05:24)
[2024-05-02 07:18] VITALS: BP 107/63
[2024-05-02] MEDS: ALDACTONE 12.5 MG PO (07:58)
[2024-05-02] MEDS: PLAVIX 75 MG PO (07:58)
[2024-05-02] MEDS: PEPCID 20 MG PO (07:58)
[2024-05-02] MEDS: LASIX 40 MG PO (07:59)
[2024-05-02] MEDS: ALPHAGAN 0.2% EYE DROPS 1 DROP RIGHT EYE (07:59)
[2024-05-02] MEDS: KCL 20 MEQ PO (07:59)
[2024-05-02] MEDS: ELIQUIS 2.5 MG PO (07:59)
[2024-05-02] MEDS: COSOPT EYE DROPS 1 DROP RIGHT EYE (07:59)
[2024-05-02] MEDS: TOPROL XL 25 MG PO (07:59)
--- NOTE | 2024-05-02 09:23 | W.PN.CARDCBS ---
Addendum entered and electronically signed by Tio Bernabe MD 05/02/24 12:24:
Patient seen, interviewed and examined by me.
Well-appearing, no acute distress
Regular rate and rhythm with normal S1 and S2, no S3 no S4. There is a grade 1/6 apical holosystolic murmur and no rubs. PMI is normally placed.
Lungs are clear to auscultation bilaterally without wheezes rales or rhonchi.
Abdomen soft nontender nondistended with normoactive bowel sounds
Extremities show trace pretibial edema bilaterally no clubbing or cyanosis.
Neurologic exam is grossly nonfocal.
Review of telemetry finds that she continues to remain atrial paced.
I did describe to her the findings and the results from yesterday's electrophysiologic study and the fact that there are multiple atrial tachycardias some of which were able to terminate but not all of them. I have reprogrammed her pacemaker to
include atrial preference pacing as well as ATP for atrial tachycardias which may help reduce the burden of atrial arrhythmias. Given that she has been rather symptomatic, presumably from the amiodarone, I have stopped amiodarone. We also reviewed
that given her age and weight we have dose reduced Eliquis to 2.5 mg daily.
All of her questions have been answered.
Stable for discharge to home today.
Original Note:
Today's Communication / Plan
-
post ablation stable for d/c home
Impression / Plan
-
Primary Care: Dr Juany Thorne
Primary Partition Making Machine Operator: Dr Kalia Hansen
Impression:
Symptomatic persistent Atrial fibrillation
prior PVI 07/18/2018
post redo PVI 05/01/24
SSS post PPM 12/2023
HTN
Hyperlipidemia
moderate to severe
CAD/MS PCI LCx 2017
PMR
temporal arteritis
PAD/ANA CRISTINA post stent
Hypothyroidism
CVA 2021
Right eye blindness
Chronic HFpEF 55-60%
Plan:
post ablation tele AVdual paced
groin stable
CHADSVASc: 6
OAC Eliquis will decrease to 2.5mg given her age/wt
Stop Amiodarone
continue metoprolol xl 25mg
mild dyspnea resume lasix and spironolactone (was held for Cr 1.1 preop)
If she has recurrence of high burden and symptomatic atrial arrhythmias, we could consider resumption of antiarrhythmic drug, perhaps something other than amiodarone (dofetilide or sotalol)
Check BMP in 1 week
Activity restrictions reviewed
f/u Dr. Hansen in 1 mo
home today
SUMMARY:
- Mapping and ablation to isolate the PVs
- Additional AF ablation set after PVI (LA post wall ablation).
- Mapping and ablation of second tachycardia (LA micro-reentrant tachycardia)
- Interrogation and reprogramming of dual-chamber permanent pacemaker
- 3-D Electroanatomical Mapping
- Intracardiac Ultrasound
- Ultrasound guidance for vascular access
Progress Note - Partition Making Machine Operator
Subjective
Date of Service: May 02, 2024
denies cp, mild dyspnea, groin tender
Objective
Labs:
05/02/24 03:30
05/02/24 03:30
Labs
Hgb 11.4 g/dL (12.0-16.0) L 05/02/24 03:30
Hct 32.8 % (37.0-47.0) L 05/02/24 03:30
Plt Count 178 10^3/uL (130-400) 05/02/24 03:30
PT 21.9 Sec (11.4-14.6) H 04/26/24 12:20
INR 1.86 04/26/24 12:20
Sodium 136 mmol/L (135-145) 05/02/24 03:30
Potassium 4.4 mmol/L (3.5-5.1) 05/02/24 03:30
BUN 22 mg/dl (7-17) H 05/02/24 03:30
Creatinine 0.7 mg/dL (0.6-1.0) 05/02/24 03:30
Glucose 120 mg/dl (70-99) H 05/02/24 03:30
Vital Signs and I&O:
Vital Signs
Temp Pulse Resp BP Pulse Ox
97.8 F 70 14 107/63 94
05/02/24 07:00 05/02/24 07:18 05/02/24 07:00 05/02/24 07:18 05/02/24 07:00
Vital Signs
Temp Pulse Resp BP Pulse Ox
97.8 F 70 14 107/63 94
05/02/24 07:00 05/02/24 07:18 05/02/24 07:00 05/02/24 07:18 05/02/24 07:00
Intake & Output
04/30/24 05/01/24 05/02/24 05/03/24
06:59 06:59 06:59 06:59
Intake Total 590 / 590
Output Total 600 / 600
Balance -10 / -10
Physical Exam
Physical Exam
NAD, AOX3
S1, S2, RRR
CTAB, non labored, no wheeze
SNTND Bsx4
R fem c/d/i no HT, soft, mild ecchymosis
--- NOTE | 2024-05-02 11:07 | W.DS.TRANS ---
DC Summary - Curriculum Coordinator
-
Discharge Instructions:
Sleep Apnea Risk Low
Discharge Diagnosis/Procedures AFib, s/p ablation
Diet Low Cholesterol
Driving Restrictions As prior to admission
Blood Work Check BMP in 1 week
Instructions:
Stand-Alone Forms: DC Instructions- Cath/EP Lab
Changes to Home Medications: Yes
Discharge Medications:
DC Medications w/original date entered in [employer]
rosuvastatin 10 mg tablet 20 mg PO HS High cholesterol 06/07/18
clopidogrel 75 mg tablet 75 mg PO DAILY Blood clot prevention/tx 12/25/21
levothyroxine 112 mcg tablet (Synthroid) 112 mcg PO DAILY AT 0700 Thyroid 12/25/21
potassium chloride 20 mEq tablet,extended release(part/cryst) (Klor-Con M) 20 meq PO DAILY Electrolyte Repletion 01/21/22
L.acid,rhamn-Bif anim-B.subt 15 billion cell-bacterio 15 mg capsule,DR (Mage) 1 cap PO DAILY Supplement 12/29/23
acetaminophen 650 mg tablet,extended release 650 mg PO Q8HPRN PRN moderate pain 12/29/23
magnesium chloride 70 mg (magnesium chloride) tablet,delayed release 70 mg PO HS Supplement 12/29/23
yqnhpawknkzn-yjsptkgr-cfxjyu tablet (Multivitamin 50 Plus tablet) 1 tab PO DAILY Supplement 12/29/23
brimonidine 0.2 % eye drops 1 drp RIGHT EYE BID Eye Condition 01/29/24
dorzolamide 22.3 mg-timolol 6.8 mg/mL eye drops 1 drp RIGHT EYE BID Eye Condition 01/29/24
furosemide 40 mg tablet 40 mg PO DAILY Fluid retention/Swelling #30 tabs 02/03/24
ipratropium 0.5 mg-albuterol 3 mg (2.5 mg base)/3 mL nebulization soln 3 ml inhalation R Q4HPRN PRN shortness of breath #0 mL 02/03/24
spironolactone 25 mg tablet 12.5 mg (1/2 x 25 mg) PO DAILY Heart disease/condition #0 tabs 02/03/24
guaifenesin 600 mg tablet, extended release 12 hr 600 mg PO HS 04/24/24
latanoprost 0.005 % eye drops 1 drp ophthalmic (eye) QPM 04/24/24
metoprolol succinate 25 mg tablet,extended release 24 hr 25 mg PO DAILY Blood Pressure 04/24/24
polyethylene glycol 3350 17 gram oral powder packet (HealthyLax) 17 g PO DAILYPRN PRN constipation 04/24/24
famotidine 20 mg tablet 20 mg PO BID Gastrointestinal issue 04/26/24
apixaban 2.5 mg tablet (Eliquis) 2.5 mg PO BID #60 tabs 05/02/24
Home Medication Changes
decrease apixaban dose, stopped amiodarone
Pending Results: No
[2024-05-02 11:31] VITALS: BP 120/73
--- NOTE | 2024-05-02 14:47 | PTCARENOTE ---
IV and tele removed. Discharge instructions reviewed w/ pt and spouse. Verbalizes understanding. Belongings collected and sent w/ pt. Escorted via WC and staff assist. Discharged to home.
== END 2024-05-02 14:47 | disposition home or self-care (01) ==
LOC: CATH 05:59
PROVIDERS: Nurse Practitioner; ATTENDING PHYSICIAN Internal Medicine Cardiovascular Disease; FAMILY PHYSICIAN Internal Medicine; OTHER PHYSICIAN Nuclear Medicine Nuclear Cardiology
DX: I48.19 Other persistent atrial fibrillation (principal); I49.5 Sick sinus syndrome; I48.92 Unspecified atrial flutter; E03.9 Hypothyroidism, unspecified; I50.32 Chronic diastolic (congestive) heart failure; I25.10 Atherosclerotic heart disease of native coronary artery without angina pectoris; E78.5 Hyperlipidemia, unspecified; G47.33 Obstructive sleep apnea (adult) (pediatric); I11.0 Hypertensive heart disease with heart failure; I08.2 Rheumatic disorders of both aortic and tricuspid valves; Z87.440 Personal history of urinary (tract) infections; H40.9 Unspecified glaucoma; J44.9 Chronic obstructive pulmonary disease, unspecified; R05.3 Chronic cough; M31.5 Giant cell arteritis with polymyalgia rheumatica; Z86.73 Personal history of transient ischemic attack (TIA), and cerebral infarction without residual deficits; K76.0 Fatty (change of) liver, not elsewhere classified; K21.9 Gastro-esophageal reflux disease without esophagitis; N20.0 Calculus of kidney; Z87.891 Personal history of nicotine dependence; H91.90 Unspecified hearing loss, unspecified ear; E83.41 Hypermagnesemia; F19.980 Other psychoactive substance use, unspecified with psychoactive substance-induced anxiety disorder; M19.90 Unspecified osteoarthritis, unspecified site; Z96.653 Presence of artificial knee joint, bilateral; I73.9 Peripheral vascular disease, unspecified; Z95.5 Presence of coronary angioplasty implant and graft; I65.23 Occlusion and stenosis of bilateral carotid arteries; K59.09 Other constipation; R51.9 Headache, unspecified; Z79.02 Long term (current) use of antithrombotics/antiplatelets; Z79.899 Other long term (current) drug therapy; Z79.01 Long term (current) use of anticoagulants; Z79.890 Hormone replacement therapy
CPT/HCPCS: C1733; C1766; C1730; C1892; C1759; C1894; 36415; 80048; 80053; 83735; 85025; 85027; 85347; 85610; 86850; 86900; 86901; 93005; 93655; 93656; 93657

== ENCOUNTER → 2024-05-11 10:00 | Outpatient (REF) | payer MEDICARE, SELFPAY ==
[2024-05-11 13:21] LABS: Blood Urea Nitrogen 21 mg/dl (7-17); Calcium 10.1 mg/dl (8.4-10.2); Carbon Dioxide 21 mmol/L (22-30); Chloride 103 mmol/L (98-107); Glucose 105 mg/dl (70-99); Magnesium 2.6 mg/dl (1.6-2.3); Potassium 4.7 mmol/L (3.5-5.1); Sodium 138 mmol/L (135-145); eGFR > 60.00
== END ==
LOC: HWLAB 10:00
PROVIDERS: ATTENDING PHYSICIAN Nurse Practitioner Adult Health; FAMILY PHYSICIAN Internal Medicine; REFERRING PHYSICIAN Nuclear Medicine Nuclear Cardiology
DX: I48.91 Unspecified atrial fibrillation (principal)
CPT/HCPCS: 36415; 80048; 83735

== ENCOUNTER → 2024-06-02 10:51 | Outpatient (REF) | payer MEDICARE, SELFPAY | LOC: HWRCS 10:51 | PROVIDERS: ATTENDING PHYSICIAN Nuclear Medicine Nuclear Cardiology; FAMILY PHYSICIAN Internal Medicine | DX: R06.09 Other forms of dyspnea (principal); I25.10 Atherosclerotic heart disease of native coronary artery without angina pectoris; I42.9 Cardiomyopathy, unspecified; I35.0 Nonrheumatic aortic (valve) stenosis; Z95.0 Presence of cardiac pacemaker | CPT/HCPCS: 93306 ==

== ENCOUNTER → 2024-06-20 12:48 | Outpatient (REF) | payer MEDICARE, SELFPAY | LOC: RAD 12:48 | PROVIDERS: ATTENDING PHYSICIAN Registered Nurse | DX: I77.9 Disorder of arteries and arterioles, unspecified (principal) | CPT/HCPCS: 93880 ==

== ENCOUNTER → 2024-09-05 13:42 | Outpatient (REF) | payer MEDICARE, SELFPAY ==
[2024-09-05 15:18] LABS: % Basophils 0.7 % (0-2); % Eosinophils 1.7 % (0-6); % Immature Granulocytes 0.3 % (0-0.5); % Lymphocytes 17.9 % (20.5-51.1); % Monocytes 8.4 % (1.7-9.3); Absolute Basophils 0.1 10^3/uL (0-0.2); Absolute Eosinophils 0.2 10^3/uL (0-0.7); Absolute Lymphocytes 1.7 10^3/uL (1.2-3.4); Absolute Monocytes 0.8 10^3/uL (0.1-0.6); Absolute Neutrophils 6.7 10^3/uL (1.4-6.5); Hematocrit 39.2 % (37.0-47.0); Hemoglobin 13.5 g/dL (12.0-16.0); Mean Corp Hgb Conc. 34.4 g/dL (33.0-37.0); Mean Corpuscular Hgb 35.9 pg (27.0-31.0); Mean Corpuscular Volume 104.3 fL (81.0-99.0); Mean Platelet Volume 9.9 fL (7.4-10.4); Nucleated Red Blood Cells % 0 %; Platelet Count 203 10^3/uL (130-400); Red Blood Cell Count 3.76 10^6/uL (4.20-5.40); Red Cell Dist. Width 12.1 % (11.5-14.5); White Blood Cell Count 9.4 10^3/uL (4.8-10.8)
[2024-09-05 15:59] LABS: ALT (SGPT) 18 U/L (0-35); AST (SGOT) 29 U/L (14-36); Albumin 4.5 g/dl (3.5-5.0); Alkaline Phosphatase 68 U/L (38-126); Blood Urea Nitrogen 21 mg/dl (7-17); Calcium 9.8 mg/dl (8.4-10.2); Carbon Dioxide 18 mmol/L (22-30); Chloride 109 mmol/L (98-107); Glucose 91 mg/dl (70-99); Iron 112 ug/dl (37-170); Lipase 231 U/L (23-300); Potassium 4.8 mmol/L (3.5-5.1); Sodium 138 mmol/L (135-145); Total Bilirubin 0.5 mg/dl (0.2-1.3); eGFR > 60.00
[2024-09-05 16:09] LABS: Percent Saturation 29 % (20-50); Total Iron Binding Capacity 374 ug/dl (265-497)
[2024-09-05 16:24] LABS: Hepatitis B Surface Antigen Negative (Negative)
[2024-09-05 16:30] LABS: Ferritin 91.1 ng/ml (11.1-264.0)
[2024-09-05 16:32] LABS: TSH Reflex To Free T4 0.29 uIU/ml (0.47-4.68)
[2024-09-05 16:42] LABS: Hepatitis A Antibody, Total Positive (Negative); Hepatitis B Core Ab, Total Negative (Negative); Hepatitis B Surface Antibody Negative; Hepatitis C Antibody Negative (Negative)
[2024-09-05 16:58] LABS: Free T4 2.43 ng/dl (0.78-2.19)
[2024-09-06 14:31] LABS: tTG IgA Antibody 11.3 EU/ml (0-19)
[2024-09-06 23:34] LABS: IgA 501 mg/dl (70-400); IgG 1474 mg/dl (700-1600); IgM 83 mg/dl (40-230)
[2024-09-07 21:08] LABS: IgG Subclass 1 747 mg/dL (240-1118); IgG Subclass 2 344 mg/dL (124-549); IgG Subclass 3 15 mg/dL (21-134); IgG Subclass 4 111 mg/dL (1-123)
[2024-09-08 04:17] LABS: F-Actin Antibody IgG 6 Units (0-19)
== END ==
LOC: REG 13:42
PROVIDERS: ATTENDING PHYSICIAN Student in an Organized Health Care Education/Training Program; FAMILY PHYSICIAN Internal Medicine
DX: R10.84 Generalized abdominal pain (principal); R11.10 Vomiting, unspecified; R63.4 Abnormal weight loss; R79.89 Other specified abnormal findings of blood chemistry
CPT/HCPCS: 36415; 80053; 82728; 82784; 82787; 83516; 83540; 83550; 83690; 84439; 84443; 85025; 86015; 86038; 86376; 86704; 86706; 86708; 86803; 87340

== ENCOUNTER → 2024-09-11 12:21 | Outpatient (REF) | payer MEDICARE, SELFPAY | LOC: RAD 12:21 | PROVIDERS: ATTENDING PHYSICIAN Student in an Organized Health Care Education/Training Program; FAMILY PHYSICIAN Internal Medicine | DX: R10.84 Generalized abdominal pain (principal); R11.0 Nausea; R63.4 Abnormal weight loss | CPT/HCPCS: 74177; Q9967 ==

== ENCOUNTER → 2024-11-06 13:56 | Outpatient (REF) | payer MEDICARE, SELFPAY | LOC: HWRCS 13:56 | PROVIDERS: ATTENDING PHYSICIAN Nuclear Medicine Nuclear Cardiology; FAMILY PHYSICIAN Internal Medicine | DX: I77.9 Disorder of arteries and arterioles, unspecified (principal) | CPT/HCPCS: 93306 ==

== ENCOUNTER → 2024-12-27 13:45 | Outpatient (REF) | payer MEDICARE, SELFPAY | LOC: RAD 13:45 | PROVIDERS: ATTENDING PHYSICIAN Surgery Vascular Surgery; FAMILY PHYSICIAN Internal Medicine | DX: I77.9 Disorder of arteries and arterioles, unspecified (principal) | CPT/HCPCS: 93880 ==

== ENCOUNTER → 2025-02-06 09:00 | Outpatient (REF) | payer MEDICARE, SELFPAY ==
[2025-02-06 12:19] LABS: Hematocrit 41.7 % (37.0-47.0); Hemoglobin 13.8 g/dL (12.0-16.0); Mean Corp Hgb Conc. 33.1 g/dL (33.0-37.0); Mean Corpuscular Volume 108.0 fL (81.0-99.0); Nucleated Red Blood Cells % 0 %; Platelet Count 209 10^3/uL (130-400); Red Cell Dist. Width 11.8 % (11.5-14.5)
[2025-02-06 12:20] LABS: Urine Character Clear (Clear)
[2025-02-06 12:52] LABS: ALT (SGPT) 21 U/L (0-35); AST (SGOT) 32 U/L (14-36); Albumin 4.7 g/dl (3.5-5.0); Alkaline Phosphatase 72 U/L (38-126); Blood Urea Nitrogen 23 mg/dl (7-17); Calcium 9.7 mg/dl (8.4-10.2); Carbon Dioxide 26 mmol/L (22-30); Chloride 104 mmol/L (98-107); Glucose 100 mg/dl (70-99); HDL Cholesterol 51 mg/dl; LDL Cholesterol, Calculated 79 mg/dl; Potassium 4.2 mmol/L (3.5-5.1); Sodium 140 mmol/L (135-145); Total Protein 8.4 g/dl (6.3-8.2); Very Low Density Lipoprotein 17 mg/dl (0-30); eGFR > 60.00
[2025-02-06 13:01] LABS: Urine Squamous Cell 26-30 /LPF (Few); Urine Urothelial Cell 0-2 /LPF (FEW)
[2025-02-06 13:02] LABS: Urine White Cell 16-20 /HPF (0-5)
[2025-02-06 13:06] LABS: Vitamin D, 25-OH*** 56.6 ng/mL (30-80)
[2025-02-06 13:20] LABS: TSH 0.75 uIU/ml (0.47-4.68)
[2025-02-06 14:14] LABS: Glycohemoglobin (HgbA1c) 5.7 % (4.0-5.9)
== END ==
LOC: REG 09:00
PROVIDERS: ATTENDING PHYSICIAN Student in an Organized Health Care Education/Training Program; FAMILY PHYSICIAN Internal Medicine
DX: R11.0 Nausea (principal); R63.4 Abnormal weight loss; R10.84 Generalized abdominal pain; E78.00 Pure hypercholesterolemia, unspecified; R35.1 Nocturia; E03.9 Hypothyroidism, unspecified; E55.9 Vitamin D deficiency, unspecified; I10 Essential (primary) hypertension; Z00.00 Encounter for general adult medical examination without abnormal findings; N40.1 Benign prostatic hyperplasia with lower urinary tract symptoms
CPT/HCPCS: 36415; 80053; 80061; 81003; 81015; 82306; 83036; 84439; 84443; 85025; 87077; 87086

== ENCOUNTER → 2025-03-08 13:08 | Outpatient (REF) | payer MEDICARE, SELFPAY | LOC: RAD 13:08 | PROVIDERS: ATTENDING PHYSICIAN Surgery Vascular Surgery; FAMILY PHYSICIAN Internal Medicine | DX: I73.9 Peripheral vascular disease, unspecified (principal) | CPT/HCPCS: 93922; 93925 ==